=== PATIENT | male | born 1970 | race Caucasian/White ===

== ENCOUNTER 2022-02-19 09:08 | Inpatient (IN) | payer BC, SELFPAY ==
[2022-02-19] VITALS (7 sets, daily range): BP systolic 118–144; BP diastolic 60–79; PULSE 81–88; RESP 18; TEMP 36.2–37.3; O2SAT 96–100; BMI 24.9
--- NOTE | ~2022-02-19 | US_ITS ---
EXAMINATION: US venous doppler [facility] DATE: 02/19/2022 14:48 INDICATION: Lower limb pain. TECHNIQUE: Grayscale ultrasound images without and with compression and Doppler ultrasound images of the bilateral lower extremity veins were obtained. COMPARISON: None. FINDINGS: The visualized portions of right common femoral vein, profunda (deep) femoral vein, femoral vein, pop liteal vein, peroneal veins, posterior tibial veins, and greater saphenous vein outflow are patent. The visualized portions of left common femoral vein, profunda femoral vein, femoral vein, popliteal v ein, peroneal veins, posterior tibial veins, and greater saphenous vein outflow are patent. IMPRESSION: 1. No deep venous thrombosis. Reviewed, dictated and finalized at location A.
--- NOTE | ~2022-02-19 | US_ITS ---
EXAMINATION: US soft tissue LE DATE: 02/20/2022 12:58 INDICATION: Left posterior thigh lump. TECHNIQUE: Multiple grayscale and Doppler ultrasound images of the left thigh were obtained. COMPARISON: Left femur CT 02/19/2022 FINDINGS: In the left posterior thigh, there is a 3.8 x 1.6 cm mixed hypoechoic and isoechoic mass. T he surrounding fat is hyperechoic, consistent with inflammation. IMPRESSION: 1. 3.8 x 1.6 cm subcutaneous mass in the posterior left thigh, consistent with abscess. Reviewed, dictated and finalized at location A.
--- NOTE | ~2022-02-19 | US_ITS ---
EXAMINATION: US venous doppler [facility] DATE: 02/19/2022 14:47 INDICATION: Bilateral lower limb pain TECHNIQUE: Krause scale images without and with compression and Doppler images of the bilateral lower e xtremity veins were obtained. COMPARISON: None FINDINGS: The right common femoral vein, profunda femoral vein, femoral vein, popliteal vein, peroneal trunk, p osterior tibial veins, and greater saphenous vein are patent. The left common femoral vein, profunda femoral vein, femoral vein, popliteal vein, peroneal trunk, po sterior tibial veins, and greater saphenous vein are patent. IMPRESSION: 1. Patent bilateral lower extremity veins. No evidence of deep venous thrombosis. Reviewed, dictated and finalized at location B. IMPRESSION: 1. Patent bilateral lower extremity veins. No evidence of deep venous thrombosi s.
--- NOTE | ~2022-02-19 | CT_ITS ---
EXAMINATION: CTA chest PE protocol DATE: 02/19/2022 11:06 INDICATION: Left chest pain TECHNIQUE: Computed tomography angiography (CTA) of the chest was performed with 100 mL Omnipaque-350 intravenous contrast timed to evaluate the pulmonary arteries. Coronal maximum intensity projection 3D-reconstructions were created by the technologist. The dose-length product (DLP) was 415.27 mGy-cm. Automated exposure control and iterative reconstruction technique were employed. COMPARISON: None. FINDINGS: The pulmonary arteries are well-opacified. Respiratory motion artifact significantly limits evaluation for pulmonary emboli. There are possible pulmonary emboli in subsegmental branches of the left upper lobe and left lower lobe. There is mild atelectasis. No definite focal airspace opacity i s identified. No pleural effusion or pneumothorax. No pathologically enlarged thoracic lymph nodes ar e identified. The heart size is normal. There is moderate thoracic spondylosis. IMPRESSION: 1. Possible pulmonary emboli in segmental branches of the left upper lower lobes, sensitivity signifi cantly limited by motion artifact. Reviewed, dictated and finalized at location B. IMPRESSION: 1. Possible pulmonary emboli in segmental branches of the left upper lower lobe s, sensitivity significantly limited by motion artifact.
--- NOTE | ~2022-02-19 | CT_ITS ---
EXAMINATION: CT femur LT w con DATE: 02/19/2022 11:06 INDICATION: Left thigh cellulitis. TECHNIQUE: Computed tomography (CT) of the left thigh was performed with 100 mL Omnipaque 350 intrave nous contrast. Automated exposure control and iterative reconstruction technique were employed. The d ose-length product was 571.06 mGy-cm. COMPARISON: None FINDINGS: There is subcutaneous fat stranding in posterior and lateral left thigh. No drainable absce ss. Bone alignment is normal. No fracture. There is mild left hip osteoarthritis. No knee joint effus ion. IMPRESSION: 1. Subcutaneous fat stranding in posterior and lateral left thigh, consistent with cellulitis. No sunni inable abscess. Reviewed, dictated and finalized at location A. IMPRESSION: 1. Subcutaneous fat stranding in posterior and lateral left thigh, consistent w ith cellulitis. No drainable abscess.
--- NOTE | 2022-02-19 09:37 | ED.GENADULT ---
HPI - General Adult General Chief complaint: Wound/Laceration Stated complaint: left leg pain, chest pain Time Seen by Provider: 02/19/22 09:11 History of Present Illness HPI narrative: 51-year-old male presenting the emergency department for evaluation of a worsening cellulitis/abscess on his posterior left thigh. Patient also has complaint of left lower rib pain that is worsened with movement and inspiration. Patient states that he started having the redness on the posterior left thigh few days ago and was treated at a [facility] care with antibiotics and prednisone on Wednesday. Patient since that time the leg swelling has continued to worsen. Patient reports he was having some cough and congestion and has since had worsening left-sided chest pain with movement Related Data Home Medications Medication Instructions Recorded Confirmed alprazolam 1 mg tablet 1 mg PO DAILY 02/19/22 02/19/22 desvenlafaxine succinate 50 mg 50 mg PO DAILY 02/19/22 02/19/22 tablet,extended release 24 hr dihydroergotamine (Trudhesa) 0.725 mg intranasal PRN PRN 02/19/22 02/19/22 headaches melatonin 10 mg tablet 20 mg PO HS PRN Insomnia 02/19/22 02/19/22 rosuvastatin 5 mg tablet 5 mg PO DAILY 02/19/22 02/19/22 verapamil 240 mg tablet,extended 240 mg PO BID 02/19/22 02/19/22 release Allergies Allergy/AdvReac Type Severity Reaction Status Date / Time cefaclor [From Ceclor] AdvReac Diarrhea Verified 02/19/22 09:27 cefuroxime [From Ceftin] AdvReac Diarrhea Verified 02/19/22 09:28 Review of Systems Review of Systems: CONSTITUTIONAL: Denies fever, chills, or sweats. EYES: Denies visual changes, redness, or discharge. ENT: Denies rhinorrhea, congestion, sore throat, or otalgia. CARDIOVASCULAR: Left-sided chest pain RESPIRATORY: See HPI GASTROINTESTINAL: Denies abdominal pain, nausea, vomiting, or diarrhea. GENITOURINARY: Denies dysuria or hematuria. SKIN: See HPI MUSCULOSKELETAL: Denies back pain, joint pain, or myalgia. NEUROLOGIC: Denies headache, numbness, or weakness. [facility] Past Medical History Medical History (Updated 02/19/22 @ 13:46 by Pat Thompson NP) Anxiety Borderline hyperlipidemia Cluster headache Surgical History Surgical History (Updated 02/19/22 @ 13:30 by Pat Thompson NP) H/O hernia repair S/P orchiectomy Family History Family History Father Lung cancer Sibling Lung cancer Social History Social History (Updated 02/19/22 @ 15:09 by Pat Thompson NP) Social History: The patient continues to smoke 1 pack a cigarettes a day. He lives with his . He has 1 biologic child and has 1 step child. He works for [employer] He denies any alcohol or any other illicit drugs. Code status full code Smoking packs per day: 1 Smoking cigarettes per day: 20.0 Years smoked: 35 Smoking pack-years: 35.00 Smoking status: Current some day smoker Tobacco type: cigarettes Second hand tobacco smoke exposure: Yes Alcohol intake: never Substance use: current Substance use type: marijuana Spiritual care concerns: No Exam Narrative: APPEARANCE: Well appearing, no pain, no distress, well-nourished. HEAD: normocephalic, atraumatic. EYES: PERRLA/EOMI, conjunctivae clear. NOSE: Normal no drainage NECK: Supple. No adenopathy, no masses. RESPIRATORY: Airway patent, respirations nonlabored. Clear to auscultation bilaterally, no rales, rhonchi, wheezing. CARDIOVASCULAR: Regular rate and rhythm without murmurs rubs or gallops. Left-sided chest wall pain reproducible with palpation. No abdominal tenderness to palpation ABDOMINAL: Soft, nontender, nondistended, normal bowel sounds MUSCULOSKELETAL: Moves all extremities. Strength/ROM intact, No edema, No calf tenderness. NEURO: Alert. Cranial nerves II through XII intact. Grossly intact SKIN: Cellulitis on left posterior thigh Course Course Emergency C
--- NOTE | 2022-02-19 09:38 | ECG_ITS ---
Measurements Intervals [place] Rate: 89 P: 13 IA: 106 QRS: 35 QRSD: 98 T: 37 QT: 315 QTc: 384 Interpretive Statements SINUS OR ECTOPIC ATRIAL RHYTHM BORDERLINE R WAVE PROGRESSION, ANTERIOR LEADS BASELINE ARTIFACT- II, III, AVR, AVF, V1, V3-V4 BORDERLINE ECG NO PREVIOUS ECG AVAILABLE FOR COMPARISON Electronically Signed On 02-19-2022 10:23:11 CDT by Lloyd Vázquez D.O.
[2022-02-19 10:18] LABS: Basophils Absolute Auto 0.1 K/mm3 (0.0-0.1); Basophils Percent Auto 0.4 % (0.2-1.2); Eosinophils Absolute Auto 0.4 K/mm3 (0-0.3); Eosinophils Percent Auto 1.9 % (0-4.4); Hematocrit 42.9 % (42.0-52.0); Hemoglobin 13.9 g/dL (14.0-18.0); Immature Granulocyte Absolute 0.14 K/mm3 (0.00-0.031); Immature Granulocyte Percent A 0.6 % (0-0.5); Lymphocytes Absolute Auto 2.63 K/mm3 (0.9-3.2); Lymphocytes Percent Auto 11.9 % (18.3-44.2); Mean Corpuscular HGB Conc 32.4 g/dl (32-36); Mean Corpuscular Hemoglobin 29.3 pg (26-34); Mean Corpuscular Volume 90.5 fl (80-100); Mean Platelet Volume 10.1 fl (7.4-10.4); Monocytes Absolute Auto 1.2 K/mm3 (0.1-0.6); Monocytes Percent Auto 5.2 % (2.6-8.5); Neutrophils Absolute Auto 17.6 K/mm3 (1.3-6.7); Platelet Count Result 371 k/mm3 (150-375); Red Blood Count 4.74 M/mm3 (4.6-6.20); Red Cell Distribution Width 13.3 % (11.5-14.5)
[2022-02-19 10:27] LABS: Alanine Aminotransferase 18 U/L (6-50); Albumin Level 4.5 g/dL (3.5-5.1); Alkaline Phosphatase 67 U/L (38-126); Anion Gap 15 mmol/L (8-16); Aspartate Amino Transferase 24 U/L (17-59); Bilirubin,Total 0.4 mg/dL (0.2-1.3); Blood Urea Nitrogen 18 mg/dL (9-20); Calcium 8.7 mg/dL (8.4-10.2); Carbon Dioxide 26 mmol/L (22-30); Chloride 101 mmol/L (98-107); Estimated CRCL calculation 105 ml/min; Estimated Glomerular Filt Rate > 60; Glucose 82 mg/dL (65-110); Potassium 3.7 mmol/L (3.4-5.0); Sodium 142 mmol/L (137-145)
[2022-02-19 10:37] LABS: Troponin I < 0.012 ng/mL (0.000-0.034)
[2022-02-19 10:53] LABS: Lactic Acid Reflex 1.4 mmol/L (0.7-2.0)
[2022-02-19 12:34] LABS: SARS-CoV-2 RNA PCR Negative
[2022-02-19] MEDS: ENOXAPARIN 100 MG/ML SYRINGE 95 MG SUB-Q (12:48)
[2022-02-19 13:13] LABS: Troponin I < 0.012 ng/mL (0.000-0.034)
--- NOTE | 2022-02-19 13:26 | PM.IMHP ---
H&P: HPI History of Present Illness Date/Time: 02/19/22 13:26 Chief Complaint: Left chest pain left leg pain Narrative: This is a 51-year-old male patient came to the emergency room for evaluation of worsening cellulitis. The patient stated that he had been on Omnicef for his left thigh cellulitis. His behind the left leg. The patient also was complaining of left lower rib pain that was worsened with movement and inspiration. The patient has had no recent surgery but he has been in the process of moving out of his house. The patient had no injury to the left leg but thinks that he may have gotten a spider bite. The swelling and redness has gotten worse. Venous Dopplers pain bilateral lower extremity veins. No evidence of deep vein thrombosis. CT of the femur shows subcutaneous fat stranding and posterior lateral left thigh, consistent with cellulitis. No drainable abscess. The patient has an elevated area that feels that it could be I and D however the CT scan does not show any drainable abscess. Chest CTA was read as possible pulmonary emboli in segmental branches of the left lower lobes, sensitivity significantly limited by motion artifact. The patient was complaining of discomfort so I ordered a [employer] for him. The patient was started on subcu Lovenox, and vancomycin. The patient was initially admitted to inpatient status but changed to observation on the date of service of 02/19/2022. Review of Systems Review of Systems: See HPI All systems reviewed & are unremarkable except as noted in HPI and below Constitutional: Constitutional: Reports as per HPI and Reports no additional constitutional complaints Eyes: Eyes: Reports as per HPI and Reports no additional eye complaints ENT: Reports system reviewed and no additional complaints, except as documented and Reports Normal hearing present Cardiovascular: Cardiovascular: Reports no additional cardiovascular complaints Respiratory: Respiratory: Reports no additional respiratory complaints and Reports no additional respiratory complaints Gastrointestinal: Gastrointestinal: Reports as per HPI and Reports no additional gastrointestinal complaints Musculoskeletal: Musculoskeletal: Reports no additional musculoskeletal complaints Integumentary/Breasts: Skin/Breast: Reports system reviewed and no additional complaints, except as docu and Reports as per HPI Neurologic: Reports system reviewed and no additional complaints, except as documented, Reports as per HPI and Reports Normal hearing present Psychiatric: Psychiatric: Reports no additional psychiatric complaints and Reports as per HPI Endocrine: Endocrine: Reports no additional endocrine complaints Hematologic/Lymphatic: Hematologic/Lymphatic: Reports no additional hematologic/lymphatic complaints Allergic/Immunologic: Allergic/Immunologic: Reports no additional allergic/immunologic complaints [facility] Past Medical History Medical History (Updated 02/19/22 @ 13:46 by Pat Thompson NP) Anxiety Borderline hyperlipidemia Cluster headache Surgical History Surgical History (Updated 02/19/22 @ 13:30 by Pat Thompson NP) H/O hernia repair S/P orchiectomy Family History Family History (Updated 02/19/22 @ 13:32 by Pat Thompson NP) Father Lung cancer Sibling Lung cancer Social History Social History (Updated 02/19/22 @ 15:09 by Pat Thompson NP) Social History: The patient continues to smoke 1 pack a cigarettes a day. He lives with his . He has 1 biologic child and has 1 step child. He works for [employer] and [employer] He denies any alcohol or any other illicit drugs. Code status full code Smoking status: Current some day smoker Meds Home Medications and Allergies Home Medications Medication Instructions Recorded Confirmed Type alprazolam 1 mg tablet mg 02/19/22 02/19/22 History desvenlafaxine succinate 50 mg mg PO 02/19/22 History tablet,ext
[2022-02-19] MEDS: HYDROcodone/acetaminophen (*CRX) 5-325 MG TABLET 1 TAB PO (13:48)
--- NOTE | 2022-02-19 17:18 | PC.NURSE ---
This patient, Kory Smith, was admitted to Medical Room 348-01. Patient/family oriented to hospital policies and general routines including ID bracelet, bed and alarms, visiting hours, pain management, procedures, bathroom and other care routines, personal items, smoking policy, room service/diet, and visiting hours. Information on how to activate the Rapid Response Team has been discussed. Patient/Family are encouraged to report perceived risks to care and to ask questions if they do not understand what they are told or what they should do.
[2022-02-19 17:30] LABS: Troponin I < 0.012 ng/mL (0.000-0.034)
[2022-02-19] MEDS: HYDROcodone/acetaminophen (*CRX) 10-325 MG TABLET 1 TAB PO (17:33)
[2022-02-19] MEDS: VERAPAMIL HCL ER 240 MG TABLET.ER PO (21:12)
[2022-02-20] VITALS (9 sets, daily range): BP systolic 105–132; BP diastolic 55–70; PULSE 76–93; RESP 16–18; TEMP 36.6–37.2; O2SAT 95–99
--- NOTE | 2022-02-20 | ECHO_ITS ---
Patient Info Name: Kory Smith Age: 51 years : 1970 Gender: Male Ht: 76 in Wt: 205 lbs BSA: 2.24 m2 HR: 90 bpm BP: 122 / 62 mmHg Technical Quality: Poor Exam Date: 02/20/2022 8:54 AM Exam Location: [facility] Pulmonary Patient Status: Inpatient Admit Date: 02/19/2022 Staff Ordering Physician: Pat Thompson NP Development Coordinator: Paco Santamaria RDCS, RT Attending Provider: Alin Norwood MD Referring Physician: Jay PATE; Exam Type: CA echo doppler color flow Study Info Indications I26.99 - Other pulmonary embolism without acute cor pulmonale Complete two-dimensional, color flow and Doppler transthoracic echocardiogram is performed. Strain analysis performed. Summary 1. Complete two-dimensional, color flow and Doppler transthoracic echocardiogram is performed. 2. Technically suboptimal study due to poor sonographic images. 3. Left ventricular chamber dimension is normal. 4. Left ventricular systolic function is normal, estimated at 65-70%. 5. The left ventricular diastolic function is grade I diastolic dysfunction. 6. E/e' 5 is not elevated. 7. Global longitudinal strain is mildly abnormal at -16.3%. Left Ventricle E/e' 5 is not elevated. Global longitudinal strain is mildly abnormal at -16.3%. Technically suboptimal study due to poor sonographic images. Left ventricular chamber dimension is normal. Left ventricular systolic function is normal, estimated at 65-70%. The left ventricular diastolic function is grade I diastolic dysfunction. Right Ventricle Right ventricular systolic function is normal and with normal TAPSE 3.3 cm. Right ventricular chamber dimension is normal. Left Atria Left atrial chamber dimension is normal. Right Atria Right atrial chamber dimension is normal. Aortic Valve The aortic valve is trileaflet. There is no aortic valve stenosis. There is no aortic valve regurgitation. Pulmonic Valve The pulmonic valve is not well visualized. There is no pulmonic regurgitation. Mitral Valve There is no mitral valve stenosis. There is no mitral valve regurgitation. Tricuspid Valve The tricuspid valve leaflets are not well visualized. There is no tricuspid valve regurgitation. Pericardium/Pleural There is no pericardial effusion. Inferior Vena Cava Inferior vena cava is not well visualized. Aorta The aortic root size at the sinus of Valsalva is normal. Left Ventricular Outflow Tract Name Value Normal LVOT 2D LVOT Diameter 2.0 cm LVOT Doppler LVOT Peak Gradient 9 mmHg LVOT Mean Gradient 5 mmHg LVOT VTI 23 cm LVOT VTI/AV VTI Ratio 0.9 LVOT Stroke Volume 70 ml LVOT CO 6.4 l/min LVOT CI 2.9 l/min/m2 Mitral Valve Name Value Normal MV Doppler
[2022-02-20] MEDS: HYDROcodone/acetaminophen (*CRX) 10-325 MG TABLET 1 TAB PO ×2 (00:41→09:02)
[2022-02-20] MEDS: ENOXAPARIN 100 MG/ML SYRINGE 95 MG SUB-Q ×2 (00:42→12:09)
[2022-02-20 05:24] LABS: Basophils Absolute Auto 0.1 K/mm3 (0.0-0.1); Basophils Percent Auto 0.4 % (0.2-1.2); Eosinophils Absolute Auto 0.3 K/mm3 (0-0.3); Eosinophils Percent Auto 1.2 % (0-4.4); Hematocrit 38.6 % (42.0-52.0); Hemoglobin 12.7 g/dL (14.0-18.0); Immature Granulocyte Absolute 0.13 K/mm3 (0.00-0.031); Immature Granulocyte Percent A 0.6 % (0-0.5); Lymphocytes Absolute Auto 2.96 K/mm3 (0.9-3.2); Lymphocytes Percent Auto 14.2 % (18.3-44.2); Mean Corpuscular HGB Conc 32.9 g/dl (32-36); Mean Corpuscular Hemoglobin 29.2 pg (26-34); Mean Corpuscular Volume 88.7 fl (80-100); Mean Platelet Volume 9.5 fl (7.4-10.4); Monocytes Absolute Auto 1.7 K/mm3 (0.1-0.6); Monocytes Percent Auto 8.2 % (2.6-8.5); Neutrophils Absolute Auto 15.7 K/mm3 (1.3-6.7); Neutrophils Percent Auto 75.4 % (45.5-73.1); Platelet Count Result 307 k/mm3 (150-375); Red Blood Count 4.35 M/mm3 (4.6-6.20); Red Cell Distribution Width 13.2 % (11.5-14.5); White Blood Count 20.9 K/mm3 (4.5-10.0)
[2022-02-20 05:32] LABS: Lactic Acid Reflex 0.6 mmol/L (0.7-2.0)
[2022-02-20 05:48] LABS: Alanine Aminotransferase 18 U/L (6-50); Albumin Level 3.6 g/dL (3.5-5.1); Alkaline Phosphatase 64 U/L (38-126); Anion Gap 11 mmol/L (8-16); Aspartate Amino Transferase 17 U/L (17-59); Blood Urea Nitrogen 13 mg/dL (9-20); Calcium 8.4 mg/dL (8.4-10.2); Carbon Dioxide 27 mmol/L (22-30); Chloride 100 mmol/L (98-107); Estimated CRCL calculation 105 ml/min; Estimated Glomerular Filt Rate > 60; Glucose 102 mg/dL (65-110); Potassium 3.8 mmol/L (3.4-5.0); Sodium 138 mmol/L (137-145)
[2022-02-20 05:49] LABS: Lactate Dehydrogenase 111 U/L (120-246)
[2022-02-20 06:08] LABS: CRP 21.1 mg/dL (<1.0)
[2022-02-20 09:02] LABS: D Dimer 0.73 ug/mL (<0.48)
[2022-02-20] MEDS: VERAPAMIL HCL ER 240 MG TABLET.ER PO ×2 (09:02→21:33)
[2022-02-20] MEDS: DESVENLAFAXINE SUCCINATE 50 MG TAB.ER.24H PO (09:02)
--- NOTE | 2022-02-20 11:39 | PM.IMPN ---
Progress Note: A&P Assessment and Plan (1) Cellulitis: Code(s): L03.90 - Cellulitis, unspecified Status: Acute Assessment and Plan: -the patient has failed outpatient therapy with Omnicef. -the area appears to be getting larger. -CT scan from yesterday shows no drainable abscess. However this has worsened since yesterday based upon markings. Also appears to be draining more as well over the bite site. will get ultrasound - surgical consult -continue with vancomycin. will add Rocephin -blood cultures are pending. -no current drainage so we are not able to obtain any wound cultures. (2) Cluster headache: Code(s): G44.009 - Cluster headache syndrome, unspecified, not intractable Status: Acute Assessment and Plan: -continue with patient's her abdomen -continue with DHE -the patient also uses high-flow oxygen when he has cluster headache. (3) Pulmonary embolism: Code(s): I26.99 - Other pulmonary embolism without acute cor pulmonale Status: Acute Assessment and Plan: -subcu Lovenox for now. -may transition to Xarelto -echo ordered (4) Borderline hyperlipidemia: Code(s): E78.5 - Hyperlipidemia, unspecified Status: Acute Assessment and Plan: -continue with rosuvastatin (5) Anxiety: Code(s): F41.9 - Anxiety disorder, unspecified Status: Acute Assessment and Plan: -continue with alprazolam Subjective Date/time seen: 02/20/22 11:39 still having significant left-sided rib pain worse with movement cellulitis looks little worse from yesterdays markings Exam Const: General: cooperative, healthy appearing, comfortable, no acute distress, well developed, alert, awake and Physically active Nutritional Appearance: average body habitus and well nourished Orientation/consciousness: oriented to person, oriented to place, oriented to time and patient oriented x3 Limitations: no limitations HENMT: Head: normal to inspection, No palpable skull fracture present, normocephalic and atraumatic Ears: hearing grossly normal bilaterally and external ears normal General nose exam: Normal external nose present and Normal nares present Eyes: General: appearance normal, both eyes and all related structures Alignment and Position: alignment normal Periorbital: periorbital findings normal Eyelids: eyelids normal Sclera: sclerae normal Pupils: Equal, round and reactive pupils present EOM: EOMs intact bilaterally Neck: Neck: normal visual inspection and full ROM Chest: Chest palpation & inspection: normal inspection of the chest Resp: Effort & Inspection: normal respiratory effort Auscultation: clear to auscultation bilaterally Percussion: percussion normal Cardio: Palpation: normal PMI Rate: regular rate Rhythm: regular rhythm Heart sounds: S1 normal heart sound present and S2 normal heart sound present Peripheral pulses: Peripheral pulses 2+ throughout GI: Inspection: normal to inspection Auscultation: normal bowel sounds Rectal Exam: deferred : General: Yes no CVA tenderness Back/Spine/Pelvis: Back: no CVA tenderness Cervical Spine: cervical ROM normal Thoracic/Lumbar Spine: thoracic and lumbar spine normal to inspection Pelvis: no pain with anterior-posterior compression Skin: General skin exam: normal color Lesions: no lesions Rashes: no rashes Trauma: no lacerations or abrasions Wounds: no wounds Hair: normal Nails: normal Other: The patient has a large reddened area behind his left knee that is approximately 10 in long and about 7 just around. The area has been cervical. It looks like there is a pustule behind that left knee. There is a scab over that area. I was going to I&D it but the CT scan shows no abscess there. The patient stated that it has been draining on its own. Neuro: General: oriented to person, oriented to place, oriented to time and patient oriented x3 Cranial nerves: Yes Equal, round and reactive pupils
[2022-02-20] MEDS: MORPHINE SULFATE (*CRX) 4 MG/ML INJ IV PUSH ×2 (12:09→17:21)
--- NOTE | 2022-02-20 17:36 | PM.CNGS ---
Assessment and Plan Assessment and plan (1) Insect bite of thigh, left, infected: Code(s): S70.362A - Insect bite (nonvenomous), left thigh, initial encounter; L08.9 - Local infection of the skin and subcutaneous tissue, unspecified; W57.XXXA - Bitten or stung by nonvenomous insect and other nonvenomous arthropods, initial encounter Status: Acute Assessment and Plan: continue broad spectrum antibiotics (2) Abscess of left thigh: Code(s): L02.416 - Cutaneous abscess of left lower limb Status: Acute Assessment and Plan: Will proceed with I/D tomorrow morning. Patient has eaten and is anticoagulated at present. (3) Pulmonary embolism: Code(s): I26.99 - Other pulmonary embolism without acute cor pulmonale Status: Acute Assessment and Plan: left chest pain persists, stable (4) Chronic anticoagulation: Code(s): Z79.01 - long term acute care registered nurse (current) use of anticoagulants Status: Acute Assessment and Plan: hold MN dose lovenox, I/D in early a.m. History of Present Illness Consult details Consult date: 02/20/22 Reason for consult: other ( left leg abscess) Requesting physician: Uri Flores MD Narrative: patient is a 51-year-old man who was bitten on the back of his left thigh by an insect 1 week ago. A couple of days later this became swollen and painful. The redness and swelling worsened. He also developed left lateral chest pain. He came to the emergency room. He was noted to have severe cellulitis on the back of his left thigh. Exam and CT was negative for an abscess at that time. He had a CTA of the chest that showed pulmonary emboli in the left upper lobe. He is on a therapeutic dose of Lovenox. The redness swelling and pain of the left thigh has worsened. An ultrasound was done that suggested an abscess. Patient is seen in consultation. Patient was unaware but the left thigh has started to drain purulent fluid. He continues to have some left chest pain as well. Review of Systems Review of Systems: All systems reviewed & are unremarkable except as noted in HPI and below ( HPI and those items noted below) Constitutional: Constitutional: Denies chills, Denies fever(s) and Denies night sweats Cardiovascular: Cardiovascular: Reports as per HPI, Reports chest pain, Denies diaphoresis, Denies dyspnea and Denies paroxysmal nocturnal dyspnea Respiratory: Respiratory: Reports as per HPI, Denies chest congestion, Denies cough and Denies dyspnea Gastrointestinal: Gastrointestinal: Denies abdominal pain and Denies nausea Musculoskeletal: Musculoskeletal: Reports as per HPI Integumentary/Breasts: Skin/Breast: Reports as per HPI, Reports erythema, Denies rash, Reports skin swelling and Reports wounds PMFSH Past Medical History Medical History (Updated 02/20/22 @ 17:48 by Maciej Rea MD) Anxiety Borderline hyperlipidemia Cluster headache Surgical History Surgical History (Updated 02/19/22 @ 13:30 by Pat Thompson NP) H/O hernia repair S/P orchiectomy Family History Family History Father Lung cancer Sibling Lung cancer Social History Social History (Updated 02/19/22 @ 15:09 by Pat Thompson NP) Social History: The patient continues to smoke 1 pack a cigarettes a day. He lives with his . He has 1 biologic child and has 1 step child. He works for [employer] He denies any alcohol or any other illicit drugs. Code status full code Smoking packs per day: 1 Smoking cigarettes per day: 20.0 Years smoked: 35 Smoking pack-years: 35.00 Smoking status: Current some day smoker Tobacco type: cigarettes Second hand tobacco smoke exposure: Yes Alcohol intake: never Substance use: current Substance use type: marijuana Spiritual care concerns: No Meds Home Medications and Allergies Home Medications Medicatio
[2022-02-20] MEDS: oxyCODONE/ACETAMINOPHEN (*CRX) 10-325 MG TABLET 1 TAB PO (21:33)
[2022-02-20] MEDS: ROSUVASTATIN 5 MG TABLET PO (21:33)
[2022-02-20] MEDS: ALPRAZolam (*CRX) 0.5 MG TABLET 1 MG PO (21:34)
[2022-02-21] VITALS (16 sets, daily range): BP systolic 102–156; BP diastolic 58–86; PULSE 68–95; RESP 12–20; TEMP 35.8–36.7; O2SAT 92–99
--- NOTE | 2022-02-21 02:08 | PC.NURSE ---
vancomycin 0100 administration delayed due to awaiting trough. the is nurse called main lab x2 with no answer. will attempt call back in 15 minutes if no results posted.
[2022-02-21 02:15] LABS: Vancomycin Trough 7.3 ug/mL (10.0-20.0)
--- NOTE | 2022-02-21 02:19 | PC.NURSE ---
trough verified and reported to pharmacy
[2022-02-21] MEDS: MORPHINE SULFATE (*CRX) 4 MG/ML INJ IV PUSH ×2 (04:52→21:06)
--- NOTE | 2022-02-21 07:17 | PC.NURSE ---
pt down to OR via bed. All pertinent information with patient.
--- NOTE | 2022-02-21 07:27 | WPDANESEPPF ---
Anes - Initial Pre Proc Eval Procedure: Operation Date: 02/21/22 07:30 Proposed Procedures p I&D Debride Lower Extremity(Left) - Maciej Rea MD Date/Time: 02/21/22 07:27 Surgeon: Alin Norwood MD Pre Op Diagnosis: cellulitis,pe Patient Data Age: 51 Gender: M Height: 1.93 m Weight: 93 kg Last Vital Signs Temp 36.7 C 02/21/22 06:00 Pulse 80 02/21/22 06:00 Resp 20 02/21/22 06:00 BP 127/70 02/21/22 06:00 Pulse Ox 98 02/21/22 06:00 O2 Del Method Room Air 02/20/22 21:30 Allergies Allergy/AdvReac Type Severity Reaction Status Date / Time cefaclor [From Ceclor] AdvReac Diarrhea Verified 02/19/22 09:27 cefuroxime [From Ceftin] AdvReac Diarrhea Verified 02/19/22 09:28 Home Medications Medication Instructions Recorded Confirmed Type alprazolam 1 mg tablet 1 mg PO DAILY 02/19/22 02/19/22 History desvenlafaxine succinate 50 mg 50 mg PO DAILY 02/19/22 02/19/22 History tablet,extended release 24 hr dihydroergotamine (Trudhesa) 0.725 mg intranasal PRN PRN 02/19/22 02/19/22 History headaches melatonin 10 mg tablet 20 mg PO HS PRN Insomnia 02/19/22 02/19/22 History rosuvastatin 5 mg tablet 5 mg PO DAILY 02/19/22 02/19/22 History verapamil 240 mg tablet,extended 240 mg PO BID 02/19/22 02/19/22 History release Laboratory Tests 02/20/22 02/21/22 08:30 00:48 D-Dimer 0.73 ug/mL H ug/mL (<0.48) Vancomycin Trough 7.3 ug/mL L ug/mL (10.0-20.0) Patient hx anesthesia problems: none Family hx anesthesia problems: none Results Review: All pre-operative results and documents have been reviewed as part of the pre-operative evaluation. [facility] Past Medical History Medical History (Updated 02/21/22 @ 07:27 by Ze Bah MD) Anxiety Borderline hyperlipidemia Cluster headache Pulmonary embolism Surgical History Surgical History H/O hernia repair S/P orchiectomy Family History Family History Father Lung cancer Sibling Lung cancer Social History Social History Social History: The patient continues to smoke 1 pack a cigarettes a day. He lives with his . He has 1 biologic child and has 1 step child. He works for [employer] He denies any alcohol or any other illicit drugs. Code status full code Smoking packs per day: 1 Smoking cigarettes per day: 20.0 Years smoked: 35 Smoking pack-years: 35.00 Smoking status: Current some day smoker Tobacco type: cigarettes Second hand tobacco smoke exposure: Yes Alcohol intake: never Substance use: current Substance use type: marijuana Spiritual care concerns: No Anes - Eval Final PreProcedure Day of Procedure 02/21/22 07:27 Patient weight: normal Heart: regular rate and rhythm Lungs: clear to auscultation Airway: Mallampati scale class II Neurological: alert and oriented Last oral intake: >/= 8 hours ASA classification: III Emergent: yes Anesthetic plan: proceed Anesthesia type and monitoring: general ETT and standard monitoring Results Review: All pre-operative results and documents have been reviewed as part of the pre-operative evaluation. Informed Consent: The patient's anesthetic plan and its attendant risks and benefits were discussed with the patient/family/POA. Questions were solicited and answers provided to the satisfaction of the patient/family/POA.
[2022-02-21] MEDS: LACTATED RINGERS 1,000 ML 30 ML IV CONT ×2 (07:40→08:50)
[2022-02-21] MEDS: fentaNYL CITRATE INJ (*CRX) 100 MCG/2 ML VIAL 25 MCG IV PUSH ×3 (08:47→08:55)
--- NOTE | 2022-02-21 09:02 | W.PM.PROC2 ---
Procedure Note - Detailed Date of Procedure 02/21/22 Pre-op Diagnosis Left posterior thigh abscess Post-op Diagnosis Other (Extensive left posterior thigh abscess) Procedure Performed Incision and drainage complicated left posterior thigh abscess Surgeon Maciej Rea MD Lighting Engineer Myles Leone ADMINISTRATIVE FELLOW Anesthesia General Indications 1 patient suffered an insect bite 8 days ago on the left posterior thigh. This proceeded to swell and become reddened. He then started having some left chest pain. He came to the emergency room 2 days ago. He was noted to have cellulitis but no abscess in the left posterior thigh. He did have a left upper lobe pulmonary embolism. He has been on antibiotics in the hospital. He was also on therapeutic dose of Lovenox. A posterior thigh abscess developed yesterday. It started draining spontaneously yesterday. Patient had his Lovenox held and is down taken to surgery for incision and drainage. Findings This is a very large extensive abscess that went intramuscular and extended distally as well as proximally in the deep posterior thigh space. There was no evidence of a necrotizing soft tissue infection. Description of Procedure Patient was taken to surgery and induced into general anesthesia. He was then placed in right lateral decubitus position. The left posterior thigh was prepped and draped. There was a small opening that was draining purulent fluid already. Probing of this with a curved clamp showed an extensive pocket. I opened this a bit more and then obtain cultures for aerobes anaerobes and Gram stain. I then made an incision in this area such that a Yankauer suction could be placed into the abscess. I suctioned out the remaining purulent fluid and broke down loculations. It was at this point quite evident that this was extensive. It went between the flexor muscles of the posterior thigh and down towards the knee. It extended towards the buttocks both on the lateral and medial aspect. Probing with my finger showed the same findings as with the suction. I made a counter incision in the lateral and most distal aspect of the abscess cavity. I tunneled down to the cavity and was able to establish a communication deep to the subcutaneous in the abscess. I then probed further and found a proximal extension that extended laterally. Another counter incision was made here. Dissection to the abscess cavity was performed. Communication between this counter incision and the other 2 were then established with curved clamps. I then thoroughly irrigated the abscess pocket with warm saline. No further purulence was noted and there were no palpable loculations. A half-inch Mercy drain was then used as a seton. I passed the drain from the most proximal incision to the central incision. The drain was sutured to itself with 0 silk suture so that was a secure ring communicating the 2 counter incisions. I then passed a half-inch Mercy drain from the most distal counter incision to the central incision. This was likewise sutured to itself making a secure ring. The drains were kept the wounds open such that drainage would be facilitated without extensive drainage incisions. All looked good. The wound was dressed with multiple fluffs ABDs Kerlix roll and a 6 in Pavan wraps. The patient was awakened and taken to recovery in good condition. Sponge and needle counts were correct x2. Estimated Blood Loss -10 Urine Output 500 Drains Yes ([place] drains placed as setons (2)) Packing No Pathology Yes (Only for cultures) Complications No immediate complications Condition Stable Disposition PACU [facility] Billing Surgery - Charge Forward: Surgery Billing (Incision and drainage complex left posterior thigh abscess)
[2022-02-21] MEDS: VERAPAMIL HCL ER 240 MG TABLET.ER PO ×2 (10:18→21:05)
[2022-02-21] MEDS: DESVENLAFAXINE SUCCINATE 50 MG TAB.ER.24H PO (10:18)
[2022-02-21] MEDS: ENOXAPARIN 40 MG/0.4 ML SYRINGE SUB-Q (10:19)
[2022-02-21] MEDS: LACTATED RINGERS 1,000 ML 80 ML IV CONT (10:20)
[2022-02-21] MEDS: FAMOTIDINE 20 MG TABLET PO ×2 (10:25→21:05)
--- NOTE | 2022-02-21 12:58 | PM.IMPN ---
Progress Note: A&P Assessment and Plan (1) Cellulitis: Code(s): L03.90 - Cellulitis, unspecified Status: Acute Assessment and Plan: -the patient has failed outpatient therapy with Omnicef. -the area appears to be getting larger. -CT scan from yesterday shows no drainable abscess. However this has worsened since yesterday based upon markings. Also appears to be draining more as well over the bite site. will get ultrasound - surgical consult -continue with vancomycin. will add Rocephin -blood cultures are pending. -no current drainage so we are not able to obtain any wound cultures. 02/21/2022 interval history: patient with left thigh abscess was seen by surgery service and was taken to OR, had I and D of complicated left posterior thigh abscess, blood culture no growth so far, wound culture was collected today patient is being treated Zosyn and vancomycin, denies any pain or sortness of breath, patient family is present in the room. there is also concerned patient has PE but no DVT, patient was started on therapeutic Lovenox but was placed on hold for the surgery and surgeon has resumed low dose Lovenox 40mg SC daily, will CPM and further recommendation to follow. (2) Cluster headache: Code(s): G44.009 - Cluster headache syndrome, unspecified, not intractable Status: Acute Assessment and Plan: -continue with patient's her abdomen -continue with DHE -the patient also uses high-flow oxygen when he has cluster headache. (3) Pulmonary embolism: Code(s): I26.99 - Other pulmonary embolism without acute cor pulmonale Status: Inactive Assessment and Plan: -subcu Lovenox for now. -may transition to Xarelto -echo ordered (4) Borderline hyperlipidemia: Code(s): E78.5 - Hyperlipidemia, unspecified Status: Acute Assessment and Plan: -continue with rosuvastatin (5) Anxiety: Code(s): F41.9 - Anxiety disorder, unspecified Status: Acute Assessment and Plan: -continue with alprazolam Subjective Date/time seen: 02/21/22 12:58 02/21/2022 interval history: patient with left thigh abscess was seen by surgery service and was taken to OR, had I and D of complicated left posterior thigh abscess, blood culture no growth so far, wound culture was collected today patient is being treated Zosyn and vancomycin, denies any pain or sortness of breath, patient family is present in the room. there is also concerned patient has PE but no DVT, patient was started on therapeutic Lovenox but was placed on hold for the surgery and surgeon has resumed low dose Lovenox 40mg SC daily, will CPM and further recommendation to follow. Review of Systems Review of Systems: All systems reviewed & are unremarkable except as noted in HPI and below ( HPI and those items noted below) Exam Narrative: Patient is comfortable, NAD HEENT: eyes are clear and none icteric LUNGS: normal respiratory effort ABD: BS+, Soft and nontender Lower extremities: no edema MS: left thigh surgical dressing SKIN: nonjaundiced Neuro: grossly intact. Objective Data Vital Signs Vital Signs: Vital Signs - 24 hr 02/20/22 14:00 02/20/22 16:00 02/20/22 21:01 Temperature 99.0 F 98.4 F Pulse Rate 80 80 86 Respiratory Rate 16 16 Blood Pressure 105/55 L 132/70 Pulse Oximetry 96 99 Oxygen Delivery Oxygen Flow Rate 02/20/22 21:30 02/20/22 20:00 02/21/22 00:00 Temperature Pulse Rate 93 80 Respiratory Rate Blood Pressure Pulse Oximetry Oxygen Delivery Room Air Oxygen Flow Rate 02/21/22 04:22 02/21/22 06:00 02/21/22 08:30 Temperature 98.0 F 97.9 F Pulse Rate 71 80 92 Respiratory Rate 20 18 Blood Pressure 127/70 156/85 H Pulse Oximetry 98 95 Oxygen Delivery Simple Face Mask Oxygen Flow Rate 8 02/21/22 08:45 02/21/22 09:00 02/21/22 09:15 Temperature Pulse Rate 83 83 80 Respiratory Rate 16 20 12 Blood Pressure 124/86 13
[2022-02-21] MEDS: MORPHINE SULFATE (*CRX) 2 MG/ML INJ IV PUSH ×2 (13:22→16:59)
[2022-02-21] MEDS: ALPRAZolam (*CRX) 0.5 MG TABLET 1 MG PO (21:04)
[2022-02-21] MEDS: ROSUVASTATIN 5 MG TABLET PO (21:05)
[2022-02-21] MEDS: IBUPROFEN IV 800 MG/200 ML 800 MG/200 ML BAG 400 MG IVPB (21:22)
[2022-02-22] VITALS (9 sets, daily range): BP systolic 111–140; BP diastolic 72–79; PULSE 59–80; RESP 16–18; TEMP 36.4–36.6; O2SAT 96–99
[2022-02-22 08:30] LABS: Basophils Percent Auto 0.3 % (0.2-1.2); Eosinophils Absolute Auto 0.2 K/mm3 (0-0.3); Eosinophils Percent Auto 1.6 % (0-4.4); Hematocrit 34.4 % (42.0-52.0); Hemoglobin 11.2 g/dL (14.0-18.0); Immature Granulocyte Absolute 0.07 K/mm3 (0.00-0.031); Immature Granulocyte Percent A 0.6 % (0-0.5); Lymphocytes Absolute Auto 1.85 K/mm3 (0.9-3.2); Lymphocytes Percent Auto 14.7 % (18.3-44.2); Mean Corpuscular HGB Conc 32.6 g/dl (32-36); Mean Corpuscular Volume 89.1 fl (80-100); Mean Platelet Volume 9.5 fl (7.4-10.4); Monocytes Percent Auto 8.1 % (2.6-8.5); Neutrophils Absolute Auto 9.4 K/mm3 (1.3-6.7); Neutrophils Percent Auto 74.7 % (45.5-73.1); Platelet Count Result 311 k/mm3 (150-375); Red Blood Count 3.86 M/mm3 (4.6-6.20); White Blood Count 12.6 K/mm3 (4.5-10.0)
[2022-02-22 08:38] LABS: Anion Gap 7 mmol/L (8-16); Blood Urea Nitrogen 10 mg/dL (9-20); Calcium 8.3 mg/dL (8.4-10.2); Carbon Dioxide 26 mmol/L (22-30); Chloride 102 mmol/L (98-107); Estimated CRCL calculation 132 ml/min; Estimated Glomerular Filt Rate > 60; Glucose 145 mg/dL (65-110); Potassium 3.6 mmol/L (3.4-5.0); Sodium 135 mmol/L (137-145)
--- NOTE | 2022-02-22 08:45 | WPDANESPN ---
Anes - Prog Note Post-Op Date/Time: 02/22/22 08:45 Cardiovascular status: normal Respiratory status: normal Airway patency: baseline Mental status: baseline Post-Op hydration status: normal Vital Signs: Last Vital Signs Temp 36.4 C L 02/22/22 08:00 Pulse 62 02/22/22 08:00 Resp 16 02/22/22 08:00 BP 111/77 02/22/22 08:00 Pulse Ox 96 02/22/22 08:00 O2 Del Method Room Air 02/21/22 21:00 O2 Flow Rate 8 02/21/22 08:30 Pain Score (VAS): 07/24 I/O: Intake & Output 02/21/22 02/22/22 02/22/22 23:59 07:59 15:59 Intake Total 990 500 Output Total 500 1400 Balance 490 -900 Laboratory Tests 02/22/22 08:11 02/22/22 08:11 02/22/22 02/22/22 08:11 08:11 WBC 12.6 H RBC 3.86 L Hgb 11.2 L Hct 34.4 L MCV 89.1 MCH 29.0 MCHC 32.6 RDW 13.0 Plt Count 311 MPV 9.5 Immature Gran % (Auto) 0.6 H Neut % (Auto) 74.7 H Lymph % (Auto) 14.7 L [place] % (Auto) 8.1 Eos % (Auto) 1.6 Baso % (Auto) 0.3 Lymph # (Auto) 1.85 [place] # (Auto) 1.0 H Eos # (Auto) 0.2 Baso # (Auto) 0.0 Abs Immat Gran (auto) 0.07 H Absolute Neuts (auto) 9.4 H Absolute Nucleated RBC 0.0 Nucleated RBC % 0.0 Sodium 135 L Potassium 3.6 Chloride 102 Carbon Dioxide 26 Anion Gap 7 L BUN 10 Creatinine 0.70 Estim Creat Clear Calc 132 Estimated GFR > 60 Glucose 145 H Calcium 8.3 L Post-procedural complaints: none Patient Feedback: Patient satisfied with anesthetic care.
[2022-02-22] MEDS: ENOXAPARIN 40 MG/0.4 ML SYRINGE SUB-Q (08:53)
[2022-02-22] MEDS: HYDROcodone/acetaminophen (*CRX) 10-325 MG TABLET 1 TAB PO ×2 (08:54→15:42)
[2022-02-22] MEDS: DESVENLAFAXINE SUCCINATE 50 MG TAB.ER.24H PO (08:55)
[2022-02-22] MEDS: VERAPAMIL HCL ER 240 MG TABLET.ER PO ×2 (08:56→20:34)
[2022-02-22] MEDS: FAMOTIDINE 20 MG TABLET PO ×2 (09:02→20:33)
[2022-02-22 09:27] LABS: Anion Gap 10 mmol/L (8-16); Blood Urea Nitrogen 10 mg/dL (9-20); Calcium 8.2 mg/dL (8.4-10.2); Carbon Dioxide 29 mmol/L (22-30); Chloride 100 mmol/L (98-107); Estimated CRCL calculation 132 ml/min; Estimated Glomerular Filt Rate > 60; Glucose 117 mg/dL (65-110); Potassium 3.7 mmol/L (3.4-5.0); Sodium 139 mmol/L (137-145)
[2022-02-22 09:32] LABS: Hematocrit 35.8 % (42.0-52.0); Hemoglobin 11.8 g/dL (14.0-18.0); Mean Corpuscular Hemoglobin 29.2 pg (26-34); Mean Corpuscular Volume 88.6 fl (80-100); Mean Platelet Volume 9.6 fl (7.4-10.4); Platelet Count Result 328 k/mm3 (150-375); Red Blood Count 4.04 M/mm3 (4.6-6.20)
--- NOTE | 2022-02-22 11:47 | PM.IMPN ---
Progress Note: A&P Assessment and Plan (1) Cellulitis: Code(s): L03.90 - Cellulitis, unspecified Status: Acute Assessment and Plan: status post I and D continue IV antibiotics (2) Cluster headache: Code(s): G44.009 - Cluster headache syndrome, unspecified, not intractable Status: Acute Assessment and Plan: -continue with patient's her abdomen -continue with DHE -the patient also uses high-flow oxygen when he has cluster headache. (3) Pulmonary embolism: Code(s): I26.99 - Other pulmonary embolism without acute cor pulmonale Status: Inactive Assessment and Plan: -subcu Lovenox for now. -may transition to Xarelto -echo ordered (4) Borderline hyperlipidemia: Code(s): E78.5 - Hyperlipidemia, unspecified Status: Acute Assessment and Plan: -continue with rosuvastatin (5) Anxiety: Code(s): F41.9 - Anxiety disorder, unspecified Status: Acute Assessment and Plan: -continue with alprazolam Subjective Date/time seen: 02/22/22 11:47 Pain better controlled Exam Narrative: Patient is comfortable, NAD HEENT: eyes are clear and none icteric LUNGS: normal respiratory effort ABD: BS+, Soft and nontender Lower extremities: no edema MS: left thigh surgical dressing SKIN: nonjaundiced Neuro: grossly intact. Objective Data Vital Signs Vital Signs: Vital Signs - 24 hr 02/21/22 15:15 02/21/22 19:15 02/21/22 12:00 Temperature 96.6 F L 97.6 F Pulse Rate 72 68 68 Respiratory Rate 16 18 Blood Pressure 111/63 120/75 Pulse Oximetry 96 98 Oxygen Delivery 02/21/22 16:00 02/21/22 21:00 02/21/22 23:15 Temperature 97.8 F Pulse Rate 95 69 Respiratory Rate 18 Blood Pressure 126/68 Pulse Oximetry 99 Oxygen Delivery Room Air 02/22/22 03:15 02/21/22 20:00 02/22/22 00:00 Temperature 97.8 F Pulse Rate 77 71 80 Respiratory Rate 18 Blood Pressure 115/79 Pulse Oximetry 96 Oxygen Delivery 02/22/22 04:00 02/22/22 08:00 Temperature 97.5 F L Pulse Rate 74 62 Respiratory Rate 16 Blood Pressure 111/77 Pulse Oximetry 96 Oxygen Delivery Intake/Output Intake/Output: Intake & Output 02/19/22 02/20/22 02/21/22 02/22/22 23:59 23:59 23:59 23:59 Intake Total 420 2019 3179 980 Output Total 600 1924 190 1400 Balance -615 60 1846 -420 Meds/Results Medications: Active Medications Generic Name Dose Route Start Last Admin Trade Name Freq PRN Reason Stop Dose Admin Acetaminophen 500 mg 02/21/22 09:30 Acetaminophen 500 Mg Tablet PO Q6H PRN Mild Pain (1-3) or Fever Hydrocodone Bitart/Acetaminophen 1 tab 02/21/22 09:30 Hydrocodone/Acetaminophen (*Crx) 5-325 Mg Tablet PO Q4H PRN Pain Rated 4-6 Hydrocodone Bitart/Acetaminophen 1 tab 02/21/22 09:30 02/22/22 08:54 Hydrocodone/Acetaminophen (*Crx) 10-325 Mg Tablet PO 1 tab Q6H PRN Administration Pain Rated 7-10 Alprazolam 1 mg 02/20/22 21:00 02/21/22 21:04 Alprazolam (*Crx) 0.5 Mg Tablet PO 1 mg HS FLAVIA Administration Desvenlafaxine Succinate 50 mg 02/20/22 09:00 02/22/22 08:55 Desvenlafaxine Succinate 50 Mg Tab.Er.24h PO 50 mg DAILY FLAVIA Administration Enoxaparin Sodium 95 mg 02/20/22 00:00 02/20/22 12:09 Enoxaparin 100 Mg/Ml Syringe SUB-Q 95 mg Q12H FLAVIA Administration Enoxaparin Sodium 40 mg 02/21/22 09:30 02/22/22 08:53 Enoxaparin 40 Mg/0.4 Ml Syringe SUB-Q 40 mg DAILY FLAVIA Administration Famotidine 20 mg 02/21/22 09:30 02/22/22 09:02 Famotidine 20 Mg Tablet PO 20 mg Q12HR FLAVIA Administration Vancomycin HCl 1,750 mg in 500 mls @ 250 mls/hr 02/21/22 03:00 02/22/22 03:35 Vancomycin 1,750 Mg/D5w 500 Ml IVPB 250 mls/hr Q12H FLAVIA Administration Ibuprofen 800 mg in 200 mls @ 400 mls/hr 02/21/22 09:30 02/21/22 21:48 Caldolor 800 Mg/200 Ml IVPB Infused Q6H PRN Infusion Pain Rated 1-3 Piperacillin/Tazoba
[2022-02-22] MEDS: MORPHINE SULFATE (*CRX) 2 MG/ML INJ IV PUSH (13:29)
[2022-02-22 14:21] LABS: Vancomycin Trough 12.3 ug/mL (10.0-20.0)
--- NOTE | 2022-02-22 14:56 | PM.PNGS ---
Progress Note: A&P Assessment and Plan (1) Abscess of left thigh: Code(s): L02.416 - Cutaneous abscess of left lower limb Status: Acute Assessment and Plan: deep abscess but appears to be well drained and much improved from 24 hours ago. Dressing replaced. Explained to patient the drains and condition of the wounds. Improved. (2) Insect bite of thigh, left, infected: Code(s): S70.362A - Insect bite (nonvenomous), left thigh, initial encounter; L08.9 - Local infection of the skin and subcutaneous tissue, unspecified; W57.XXXA - Bitten or stung by nonvenomous insect and other nonvenomous arthropods, initial encounter Status: Acute Assessment and Plan: Likely is the cause of the abscess (3) Chronic anticoagulation: Code(s): Z79.01 - long term care pharmacist (current) use of anticoagulants Status: Acute Assessment and Plan: continue to hold therapeutic dose of anticoagulation. Probably can start tomorrow. Subjective Subjective Date/Time Seen: 02/22/22 14:56 Post Op day: 1 Patient reports: still having pain and afebrile Exam Const: General: comfortable and awake Extrem: Left lower extremity: hip/thigh ( Much improved, erythema gone, swelling decreased, no bleeding or purulent) Objective Data Vital Signs Vital Signs: Vital Signs - 24 hr 02/21/22 15:15 02/21/22 19:15 02/21/22 16:00 Temperature 35.9 C L 36.4 C Pulse Rate 72 68 95 Respiratory Rate 16 18 Blood Pressure 111/63 120/75 Pulse Oximetry 96 98 Oxygen Delivery 02/21/22 21:00 02/21/22 23:15 02/22/22 03:15 Temperature 36.6 C 36.6 C Pulse Rate 69 77 Respiratory Rate 18 18 Blood Pressure 126/68 115/79 Pulse Oximetry 99 96 Oxygen Delivery Room Air 02/21/22 20:00 02/22/22 00:00 02/22/22 04:00 Temperature Pulse Rate 71 80 74 Respiratory Rate Blood Pressure Pulse Oximetry Oxygen Delivery 02/22/22 08:00 02/22/22 08:30 02/22/22 08:00 Temperature 36.4 C L Pulse Rate 62 59 L Respiratory Rate 16 Blood Pressure 111/77 Pulse Oximetry 96 Oxygen Delivery Room Air 02/22/22 12:00 02/22/22 11:50 Temperature 36.6 C Pulse Rate 76 64 Respiratory Rate 16 Blood Pressure 119/72 Pulse Oximetry 99 Oxygen Delivery Intake/Output Intake/Output: Intake & Output 02/19/22 02/20/22 02/21/22 02/22/22 23:59 23:59 23:59 23:59 Intake Total 420 2019 318 1250 Output Total 600 1925 1900 1400 Balance -152 39 9656 -150 Meds/Results Medications: Active Medications Generic Name Dose Route Start Last Admin Trade Name Freq PRN Reason Stop Dose Admin Acetaminophen 500 mg 02/21/22 09:30 Acetaminophen 500 Mg Tablet PO Q6H PRN Mild Pain (1-3) or Fever Hydrocodone Bitart/Acetaminophen 1 tab 02/21/22 09:30 Hydrocodone/Acetaminophen (*Crx) 5-325 Mg Tablet PO Q4H PRN Pain Rated 4-6 Hydrocodone Bitart/Acetaminophen 1 tab 02/21/22 09:30 02/22/22 08:54 Hydrocodone/Acetaminophen (*Crx) 10-325 Mg Tablet PO 1 tab Q6H PRN Administration Pain Rated 7-10 Alprazolam 1 mg 02/20/22 21:00 02/21/22 21:04 Alprazolam (*Crx) 0.5 Mg Tablet PO 1 mg HS FLAVIA Administration Desvenlafaxine Succinate 50 mg 02/20/22 09:00 02/22/22 08:55 Desvenlafaxine Succinate 50 Mg Tab.Er.24h PO 50 mg DAILY FLAVIA Administration Enoxaparin Sodium 95 mg 02/20/22 00:00 02/20/22 12:09 Enoxaparin 100 Mg/Ml Syringe SUB-Q 95 mg Q12H FLAVIA Administration Enoxaparin Sodium 40 mg 02/21/22 09:30 02/22/22 08:53 Enoxaparin 40 Mg/0.4 Ml Syringe SUB-Q 40 mg DAILY FLAVIA Administration Famotidine 20 mg 02/21/22 09:30 02/22/22 09:02 Famotidine 20 Mg Tablet PO 20 mg Q12HR FLAVIA Administration Vancomycin HCl 1,750 mg in 500 mls @ 250 mls/hr 02/21/22 03:00 02/22/22 03:35 Vancomycin 1,750 Mg/D5w 500 Ml IVPB 250 mls/hr Q12H FLAVIA Administration Ibuprofen 800 mg in 200 mls @ 400 mls/hr 02/21/22 09:30 02/21/22 21:48
[2022-02-22] MEDS: ALPRAZolam (*CRX) 0.5 MG TABLET 1 MG PO (20:33)
[2022-02-22] MEDS: ROSUVASTATIN 5 MG TABLET PO (20:34)
[2022-02-23] VITALS (10 sets, daily range): BP systolic 118–134; BP diastolic 69–76; PULSE 58–73; RESP 16–18; TEMP 36.4–36.9; O2SAT 9–99
[2022-02-23] MEDS: HYDROcodone/acetaminophen (*CRX) 10-325 MG TABLET 1 TAB PO ×4 (00:06→19:30)
[2022-02-23 05:26] LABS: Basophils Absolute Auto 0.1 K/mm3 (0.0-0.1); Basophils Percent Auto 0.6 % (0.2-1.2); Eosinophils Absolute Auto 0.4 K/mm3 (0-0.3); Eosinophils Percent Auto 4.4 % (0-4.4); Hematocrit 36.8 % (42.0-52.0); Immature Granulocyte Absolute 0.05 K/mm3 (0.00-0.031); Immature Granulocyte Percent A 0.5 % (0-0.5); Lymphocytes Percent Auto 35.4 % (18.3-44.2); Mean Corpuscular HGB Conc 32.6 g/dl (32-36); Mean Corpuscular Hemoglobin 29.3 pg (26-34); Mean Platelet Volume 9.5 fl (7.4-10.4); Monocytes Absolute Auto 0.8 K/mm3 (0.1-0.6); Monocytes Percent Auto 8.6 % (2.6-8.5); Neutrophils Absolute Auto 4.9 K/mm3 (1.3-6.7); Neutrophils Percent Auto 50.5 % (45.5-73.1); Platelet Count Result 332 k/mm3 (150-375); Red Blood Count 4.09 M/mm3 (4.6-6.20); White Blood Count 9.6 K/mm3 (4.5-10.0)
[2022-02-23 05:39] LABS: Anion Gap 6 mmol/L (8-16); Blood Urea Nitrogen 8 mg/dL (9-20); Calcium 8.8 mg/dL (8.4-10.2); Carbon Dioxide 31 mmol/L (22-30); Chloride 101 mmol/L (98-107); Estimated CRCL calculation 117 ml/min; Estimated Glomerular Filt Rate > 60; Glucose 112 mg/dL (65-110); Potassium 3.8 mmol/L (3.4-5.0); Sodium 138 mmol/L (137-145)
[2022-02-23] MEDS: ENOXAPARIN 40 MG/0.4 ML SYRINGE SUB-Q (09:57)
[2022-02-23] MEDS: DESVENLAFAXINE SUCCINATE 50 MG TAB.ER.24H PO (09:57)
[2022-02-23] MEDS: VERAPAMIL HCL ER 240 MG TABLET.ER PO ×2 (09:58→20:28)
[2022-02-23] MEDS: FAMOTIDINE 20 MG TABLET PO ×2 (10:01→20:28)
--- NOTE | 2022-02-23 10:56 | PM.IMPN ---
Progress Note: A&P Assessment and Plan (1) Cellulitis: Code(s): L03.90 - Cellulitis, unspecified Status: Acute Assessment and Plan: status post I and D continue IV antibiotics (2) Cluster headache: Code(s): G44.009 - Cluster headache syndrome, unspecified, not intractable Status: Acute Assessment and Plan: -continue with patient's her abdomen -continue with DHE -the patient also uses high-flow oxygen when he has cluster headache. (3) Pulmonary embolism: Code(s): I26.99 - Other pulmonary embolism without acute cor pulmonale Status: Inactive Assessment and Plan: -subcu Lovenox for now. -may transition to Xarelto Prior to discharge (4) Borderline hyperlipidemia: Code(s): E78.5 - Hyperlipidemia, unspecified Status: Acute Assessment and Plan: -continue with rosuvastatin (5) Anxiety: Code(s): F41.9 - Anxiety disorder, unspecified Status: Acute Assessment and Plan: -continue with alprazolam Subjective Date/time seen: 02/23/22 10:56 Still having some pain but overall feeling slightly better. Exam Narrative: Patient is comfortable, NAD HEENT: eyes are clear and none icteric LUNGS: normal respiratory effort ABD: BS+, Soft and nontender Lower extremities: no edema MS: left thigh surgical dressing SKIN: nonjaundiced Neuro: grossly intact. Objective Data Vital Signs Vital Signs: Vital Signs - 24 hr 02/22/22 12:00 02/22/22 11:50 02/22/22 16:00 Temperature 97.9 F Pulse Rate 76 64 66 Respiratory Rate 16 Blood Pressure 119/72 Pulse Oximetry 99 Oxygen Delivery 02/22/22 19:54 02/22/22 20:00 02/22/22 20:00 Temperature 97.8 F Pulse Rate 68 68 Respiratory Rate 18 Blood Pressure 140/72 Pulse Oximetry 99 Oxygen Delivery Room Air 02/23/22 00:00 02/23/22 04:06 02/23/22 05:47 Temperature 97.6 F Pulse Rate 58 L 59 L 61 Respiratory Rate 18 Blood Pressure 118/74 Pulse Oximetry 98 Oxygen Delivery Intake/Output Intake/Output: Intake & Output 02/20/22 02/21/22 02/22/22 02/23/22 23:59 23:59 23:59 23:59 Intake Total 2019 5535 7324 4345 Output Total 1924 1900 2100 1200 Balance 95 1280 1040 -120 Meds/Results Medications: Active Medications Generic Name Dose Route Start Last Admin Trade Name Freq PRN Reason Stop Dose Admin Acetaminophen 500 mg 02/21/22 09:30 Acetaminophen 500 Mg Tablet PO Q6H PRN Mild Pain (1-3) or Fever Hydrocodone Bitart/Acetaminophen 1 tab 02/21/22 09:30 Hydrocodone/Acetaminophen (*Crx) 5-325 Mg Tablet PO Q4H PRN Pain Rated 4-6 Hydrocodone Bitart/Acetaminophen 1 tab 02/21/22 09:30 02/23/22 06:15 Hydrocodone/Acetaminophen (*Crx) 10-325 Mg Tablet PO 1 tab Q6H PRN Administration Pain Rated 7-10 Alprazolam 1 mg 02/20/22 21:00 02/22/22 20:33 Alprazolam (*Crx) 0.5 Mg Tablet PO 1 mg HS FLAVIA Administration Desvenlafaxine Succinate 50 mg 02/20/22 09:00 02/23/22 09:57 Desvenlafaxine Succinate 50 Mg Tab.Er.24h PO 50 mg DAILY FLAVIA Administration Enoxaparin Sodium 95 mg 02/20/22 00:00 02/20/22 12:09 Enoxaparin 100 Mg/Ml Syringe SUB-Q 95 mg Q12H FLAVIA Administration Enoxaparin Sodium 40 mg 02/21/22 09:30 02/23/22 09:57 Enoxaparin 40 Mg/0.4 Ml Syringe SUB-Q 40 mg DAILY FLAVIA Administration Famotidine 20 mg 02/21/22 09:30 02/23/22 10:01 Famotidine 20 Mg Tablet PO 20 mg Q12HR FLAVIA Administration Vancomycin HCl 1,750 mg in 500 mls @ 250 mls/hr 02/21/22 03:00 02/23/22 05:45 Vancomycin 1,750 Mg/D5w 500 Ml IVPB Infused Q12H FLAVIA Infusion Ibuprofen 800 mg in 200 mls @ 400 mls/hr 02/21/22 09:30 02/21/22 21:48 Caldolor 800 Mg/200 Ml IVPB Infused Q6H PRN Infusion Pain Rated 1-3 Piperacillin/Tazobactam/Dextrose 3.375 gm in 50 mls @ 100 mls/hr 02/21/22 12:00 02/23/22 07:30 Zosyn 3.375 Gm/D5w 50ml Pm IVPB Infused Q6HR FLAVIA
--- NOTE | 2022-02-23 13:09 | PM.PNGS ---
Progress Note: A&P Assessment and Plan (1) Abscess of left thigh: Code(s): L02.416 - Cutaneous abscess of left lower limb Status: Acute Assessment and Plan: Adequately drained and continues to improve. Continue with gauze dressing changes daily. Will remove dressing and re-evaluate again tomorrow. Preliminary cultures show growth of staphylococcus aureus. Continue IV antibiotics. 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 Plan I have discussed the patient's case and plan of care with Dr. Rea. Subjective Subjective Date/Time Seen: 02/23/22 12:49 Post Op day: 2 (I&D complicated left posterior thigh abscess) Patient reports: no new complaints, feels better and afebrile Interval history: Patient presented with large left posterior thigh abscess and underwent I&D 2 days ago. He is also on anticoagulation for PE, which has been on hold since surgery. Chart reviewed and patient was seen with Dr. Rea today. Review of Systems Review of Systems: All systems reviewed & are unremarkable except as noted in HPI and below Exam Const: General: comfortable, no acute distress and awake Orientation/consciousness: patient oriented x3 Extrem: Left lower extremity: hip/thigh Details: tenderness and swelling (improved, minimal); no unusual warmth Other: Left thigh dressing removed with serosanguineous drainage, swelling much improved with no remaining erythema, no purulent drainage, seton drains in place. Psych: Thought process: Normal thought process present Insight: Good insight present (Psych) Objective Data Vital Signs Vital Signs: Vital Signs - 24 hr 02/22/22 16:00 02/22/22 19:54 02/22/22 20:00 Temperature 97.8 F Pulse Rate 66 68 68 Respiratory Rate 18 Blood Pressure 140/72 Pulse Oximetry 99 Oxygen Delivery 02/22/22 20:00 02/23/22 00:00 02/23/22 04:06 Temperature Pulse Rate 58 L 59 L Respiratory Rate Blood Pressure Pulse Oximetry Oxygen Delivery Room Air 02/23/22 05:47 02/23/22 11:24 Temperature 97.6 F Pulse Rate 61 Respiratory Rate 18 Blood Pressure 118/74 Pulse Oximetry 98 Oxygen Delivery Room Air Intake/Output Intake/Output: Intake & Output 02/20/22 02/21/22 02/22/22 02/23/22 23:59 23:59 23:59 23:59 Intake Total 2019 318 3140 1080 Output Total 1924 1900 2100 1200 Balance 95 1280 1040 -120 Meds/Results Medications: Active Medications Generic Name Dose Route Start Last Admin Trade Name Freq PRN Reason Stop Dose Admin Acetaminophen 500 mg 02/21/22 09:30 Acetaminophen 500 Mg Tablet PO Q6H PRN Mild Pain (1-3) or Fever Hydrocodone Bitart/Acetaminophen 1 tab 02/21/22 09:30 Hydrocodone/Acetaminophen (*Crx) 5-325 Mg Tablet PO Q4H PRN Pain Rated 4-6 Hydrocodone Bitart/Acetaminophen 1 tab 02/21/22 09:30 02/23/22 06:15 Hydrocodone/Acetaminophen (*Crx) 10-325 Mg Tablet PO 1 tab Q6H PRN Administration Pain Rated 7-10 Alprazolam 1 mg 02/20/22 21:00 02/22/22 20:33 Alprazolam (*Crx) 0.5 Mg Tablet PO 1 mg HS FLAVIA Administration Desvenlafaxine Succinate 50 mg 02/20/22 09:00 02/23/22 09:57 Desvenlafaxine Succinate 50 Mg Tab.Er.24h PO 50 mg DAILY FLAVIA Administration Enoxaparin Sodium 95 mg 02/20/22 00:00 02/20/22 12:09 Enoxaparin 100 Mg/Ml Syringe SUB-Q 95 mg Q12H FLAVIA Administration Enoxaparin Sodium 40 mg 02/21/22 09:30 02/23/22 09:57 Enoxaparin 40 Mg/0.4 Ml Syringe SUB-Q 40 mg JADE
[2022-02-23] MEDS: ALPRAZolam (*CRX) 0.5 MG TABLET 1 MG PO (20:26)
[2022-02-23] MEDS: ROSUVASTATIN 5 MG TABLET PO (20:28)
[2022-02-24] VITALS (8 sets, daily range): BP systolic 111–122; BP diastolic 63–74; PULSE 55–86; RESP 16–18; TEMP 36.6–37.1; O2SAT 96–100
[2022-02-24] MEDS: HYDROcodone/acetaminophen (*CRX) 10-325 MG TABLET 1 TAB PO ×4 (04:09→22:08)
[2022-02-24 05:30] LABS: Hematocrit 37.2 % (42.0-52.0); Mean Corpuscular HGB Conc 32.3 g/dl (32-36); Mean Corpuscular Volume 89.9 fl (80-100); Mean Platelet Volume 9.2 fl (7.4-10.4); Platelet Count Result 390 k/mm3 (150-375); Red Blood Count 4.14 M/mm3 (4.6-6.20); Red Cell Distribution Width 13.1 % (11.5-14.5); White Blood Count 10.8 K/mm3 (4.5-10.0)
[2022-02-24 05:39] LABS: Anion Gap 11 mmol/L (8-16); Blood Urea Nitrogen 9 mg/dL (9-20); Calcium 8.2 mg/dL (8.4-10.2); Carbon Dioxide 28 mmol/L (22-30); Chloride 100 mmol/L (98-107); Estimated CRCL calculation 117 ml/min; Estimated Glomerular Filt Rate > 60; Glucose 113 mg/dL (65-110); Potassium 3.7 mmol/L (3.4-5.0); Sodium 139 mmol/L (137-145)
[2022-02-24] MEDS: VERAPAMIL HCL ER 240 MG TABLET.ER PO ×2 (09:33→20:40)
[2022-02-24] MEDS: DESVENLAFAXINE SUCCINATE 50 MG TAB.ER.24H PO (09:34)
[2022-02-24] MEDS: ENOXAPARIN 40 MG/0.4 ML SYRINGE SUB-Q (09:34)
[2022-02-24] MEDS: FAMOTIDINE 20 MG TABLET PO ×2 (09:37→20:39)
--- NOTE | 2022-02-24 10:39 | PM.IMPN ---
Progress Note: A&P Assessment and Plan (1) Cellulitis: Code(s): L03.90 - Cellulitis, unspecified Status: Acute Assessment and Plan: status post I and D continue IV antibiotics (2) Cluster headache: Code(s): G44.009 - Cluster headache syndrome, unspecified, not intractable Status: Acute Assessment and Plan: -continue with patient's her abdomen -continue with DHE -the patient also uses high-flow oxygen when he has cluster headache. (3) Pulmonary embolism: Code(s): I26.99 - Other pulmonary embolism without acute cor pulmonale Status: Inactive Assessment and Plan: stop Lovenox and transition to Eliquis (4) Borderline hyperlipidemia: Code(s): E78.5 - Hyperlipidemia, unspecified Status: Acute Assessment and Plan: -continue with rosuvastatin (5) Anxiety: Code(s): F41.9 - Anxiety disorder, unspecified Status: Acute Assessment and Plan: -continue with alprazolam Subjective Date/time seen: 02/24/22 10:39 Doing okay, pain improved Exam Narrative: Patient is comfortable, NAD HEENT: eyes are clear and none icteric LUNGS: normal respiratory effort ABD: BS+, Soft and nontender Lower extremities: no edema MS: left thigh surgical dressing SKIN: nonjaundiced Neuro: grossly intact. Objective Data Vital Signs Vital Signs: Vital Signs - 24 hr 02/23/22 11:24 02/23/22 14:00 02/23/22 12:00 Temperature 97.9 F Pulse Rate 66 65 Respiratory Rate 18 Blood Pressure 125/76 Pulse Oximetry 99 Oxygen Delivery Room Air 02/23/22 16:00 02/23/22 20:00 02/23/22 20:00 Temperature Pulse Rate 65 73 73 Respiratory Rate 18 Blood Pressure Pulse Oximetry 99 Oxygen Delivery Room Air 02/23/22 22:00 02/24/22 00:00 02/24/22 04:00 Temperature 98.4 F Pulse Rate 66 66 57 L Respiratory Rate 16 Blood Pressure 134/69 Pulse Oximetry 99 Oxygen Delivery 02/24/22 06:00 Temperature 98.7 F Pulse Rate 55 L Respiratory Rate 16 Blood Pressure 111/63 Pulse Oximetry 96 Oxygen Delivery Intake/Output Intake/Output: Intake & Output 02/21/22 02/22/22 02/23/22 02/24/22 23:59 23:59 23:59 23:59 Intake Total 3180 3140 3810 600 Output Total 1900 2100 1700 1000 Balance 1280 1040 2110 -400 Meds/Results Medications: Active Medications Generic Name Dose Route Start Last Admin Trade Name Freq PRN Reason Stop Dose Admin Acetaminophen 500 mg 02/21/22 09:30 Acetaminophen 500 Mg Tablet PO Q6H PRN Mild Pain (1-3) or Fever Hydrocodone Bitart/Acetaminophen 1 tab 02/21/22 09:30 Hydrocodone/Acetaminophen (*Crx) 5-325 Mg Tablet PO Q4H PRN Pain Rated 4-6 Hydrocodone Bitart/Acetaminophen 1 tab 02/21/22 09:30 02/24/22 04:09 Hydrocodone/Acetaminophen (*Crx) 10-325 Mg Tablet PO 1 tab Q6H PRN Administration Pain Rated 7-10 Alprazolam 1 mg 02/20/22 21:00 02/23/22 20:26 Alprazolam (*Crx) 0.5 Mg Tablet PO 1 mg HS FLAVIA Administration Apixaban 10 mg 02/24/22 21:00 Apixaban 5 Mg Tablet PO 03/03/22 20:59 Q12HR FLAVIA Apixaban 5 mg 02/24/22 21:00 Apixaban 5 Mg Tablet PO Q12HR FLAVIA Desvenlafaxine Succinate 50 mg 02/20/22 09:00 02/24/22 09:34 Desvenlafaxine Succinate 50 Mg Tab.Er.24h PO 50 mg DAILY FLAVIA Administration Famotidine 20 mg 02/21/22 09:30 02/24/22 09:37 Famotidine 20 Mg Tablet PO 20 mg Q12HR FLAVIA Administration Vancomycin HCl 1,750 mg in 500 mls @ 250 mls/hr 02/21/22 03:00 02/24/22 05:20 Vancomycin 1,750 Mg/D5w 500 Ml IVPB Infused Q12H FLAVIA Infusion Piperacillin/Tazobactam/Dextrose 3.375 gm in 50 mls @ 100 mls/hr 02/21/22 12:00 02/24/22 06:35 Zosyn 3.375 Gm/D5w 50ml Pm IVPB Infused Q6HR FLAVIA Infusion Melatonin 10 mg 02/20/22 10:59 Melatonin 5 Mg Tablet PO HS PRN Insomnia Morphine Sulfate 2 mg 02/21/22 09:30 02/22/22 13:29 Morphine Sulfate (*Crx) 2 Mg/Ml
--- NOTE | 2022-02-24 14:12 | PM.PNGS ---
Progress Note: A&P Assessment and Plan (1) Abscess of left thigh: Code(s): L02.416 - Cutaneous abscess of left lower limb Status: Acute Assessment and Plan: Continues to improve, healing well. Continue gauze dressing changes. Cultures growing MRSA, stop IV Zosyn and continue IV Vancomycin. Will re-evaluate tomorrow. (2) Insect bite of thigh, left, infected: Code(s): S70.362A - Insect bite (nonvenomous), left thigh, initial encounter; L08.9 - Local infection of the skin and subcutaneous tissue, unspecified; W57.XXXA - Bitten or stung by nonvenomous insect and other nonvenomous arthropods, initial encounter Status: Acute (3) Chronic anticoagulation: Code(s): Z79.01 - [facility] (current) use of anticoagulants Status: Acute Assessment and Plan: Apixaban resumed. Plan I have discussed the patient's case and plan of care with Dr. Rea. Subjective Subjective Date/Time Seen: 02/24/22 14:12 Post Op day: 3 (I&D complicated left posterior thigh abscess) Patient reports: no new complaints and afebrile Interval history: Patient seen and examined. Dressing changed earlier today by Dr. Rea. No new complaints. Still having pain in the left thigh but controlled by oral analgesics. Review of Systems Review of Systems: All systems reviewed & are unremarkable except as noted in HPI and below Exam Const: General: comfortable, no acute distress and awake Orientation/consciousness: patient oriented x3 Extrem: Left lower extremity: edema Other: Left thigh dressing dry and intact Psych: Affect: normal affect Thought process: Normal thought process present Objective Data Vital Signs Vital Signs: Vital Signs - 24 hr 02/23/22 16:00 02/23/22 20:00 02/23/22 20:00 Temperature Pulse Rate 65 73 73 Respiratory Rate 18 Blood Pressure Pulse Oximetry 99 Oxygen Delivery Room Air 02/23/22 22:00 02/24/22 00:00 02/24/22 04:00 Temperature 98.4 F Pulse Rate 66 66 57 L Respiratory Rate 16 Blood Pressure 134/69 Pulse Oximetry 99 Oxygen Delivery 02/24/22 06:00 02/24/22 09:00 02/24/22 09:00 Temperature 98.7 F Pulse Rate 55 L 63 Respiratory Rate 16 Blood Pressure 111/63 Pulse Oximetry 96 Oxygen Delivery Room Air Intake/Output Intake/Output: Intake & Output 02/21/22 02/22/22 02/23/22 02/24/22 23:59 23:59 23:59 23:59 Intake Total 3180 3140 3810 1390 Output Total 1900 2100 1700 1000 Balance 1280 1040 2110 390 Meds/Results Medications: Active Medications Generic Name Dose Route Start Last Admin Trade Name Freq PRN Reason Stop Dose Admin Acetaminophen 500 mg 02/21/22 09:30 Acetaminophen 500 Mg Tablet PO Q6H PRN Mild Pain (1-3) or Fever Hydrocodone Bitart/Acetaminophen 1 tab 02/21/22 09:30 Hydrocodone/Acetaminophen (*Crx) 5-325 Mg Tablet PO Q4H PRN Pain Rated 4-6 Hydrocodone Bitart/Acetaminophen 1 tab 02/21/22 09:30 02/24/22 11:05 Hydrocodone/Acetaminophen (*Crx) 10-325 Mg Tablet PO 1 tab Q6H PRN Administration Pain Rated 7-10 Alprazolam 1 mg 02/20/22 21:00 02/23/22 20:26 Alprazolam (*Crx) 0.5 Mg Tablet PO 1 mg HS FLAVIA Administration Apixaban 10 mg 02/24/22 21:00 Apixaban 5 Mg Tablet PO 03/03/22 09:01 Q12HR FLAVIA Apixaban 5 mg 03/03/22 21:00 Apixaban 5 Mg Tablet PO Q12HR FLAVIA Desvenlafaxine Succinate 50 mg 02/20/22 09:00 02/24/22 09:34 Desvenlafaxine Succinate 50 Mg Tab.Er.24h PO 50 mg DAILY FLAVIA Administration Famotidine 20 mg 02/21/22 09:30 02/24/22 09:37 Famotidine 20 Mg Tablet PO 20 mg Q12HR FLAVIA Administration Vancomycin HCl 1,750 mg in 500 mls @ 250 mls/hr 02/21/22 03:00 02/24/22 05:20 Vancomycin 1,750 Mg/D5w 500 Ml IVPB Infused Q12H FLAVIA Infusion Piperacillin/Tazobactam/Dextrose 3.375 gm in 50 mls @ 100 mls/hr 02/21/22 12:00 02/24/22 13:03 Zosyn 3.375 Gm/D5w 50ml Pm IVPB 100 mls/hr Q6HR FLAVIA Ad
[2022-02-24] MEDS: ALPRAZolam (*CRX) 0.5 MG TABLET 1 MG PO (20:39)
[2022-02-24] MEDS: APIXABAN 5 MG TABLET 10 MG PO (20:39)
[2022-02-24] MEDS: ROSUVASTATIN 5 MG TABLET PO (20:39)
[2022-02-25] VITALS (9 sets, daily range): BP systolic 113–122; BP diastolic 55–70; PULSE 56–72; RESP 14–18; TEMP 36.2–36.9; O2SAT 99–100
[2022-02-25] MEDS: HYDROcodone/acetaminophen (*CRX) 10-325 MG TABLET 1 TAB PO ×3 (05:17→19:53)
[2022-02-25 05:38] LABS: Hematocrit 38.3 % (42.0-52.0); Hemoglobin 12.6 g/dL (14.0-18.0); Mean Corpuscular HGB Conc 32.9 g/dl (32-36); Mean Corpuscular Volume 88.2 fl (80-100); Platelet Count Result 416 k/mm3 (150-375); Red Blood Count 4.34 M/mm3 (4.6-6.20); Red Cell Distribution Width 13.1 % (11.5-14.5); White Blood Count 12.3 K/mm3 (4.5-10.0)
[2022-02-25 05:46] LABS: Anion Gap 6 mmol/L (8-16); Blood Urea Nitrogen 10 mg/dL (9-20); Calcium 9.1 mg/dL (8.4-10.2); Carbon Dioxide 28 mmol/L (22-30); Chloride 102 mmol/L (98-107); Estimated CRCL calculation 117 ml/min; Estimated Glomerular Filt Rate > 60; Glucose 119 mg/dL (65-110); Potassium 3.9 mmol/L (3.4-5.0); Sodium 136 mmol/L (137-145)
[2022-02-25] MEDS: VERAPAMIL HCL ER 240 MG TABLET.ER PO ×2 (09:40→19:53)
[2022-02-25] MEDS: DESVENLAFAXINE SUCCINATE 50 MG TAB.ER.24H PO (09:40)
[2022-02-25] MEDS: APIXABAN 5 MG TABLET 10 MG PO ×2 (09:41→19:52)
[2022-02-25] MEDS: FAMOTIDINE 20 MG TABLET PO ×2 (09:46→19:52)
--- NOTE | 2022-02-25 11:20 | PM.PNGS ---
Progress Note: A&P Assessment and Plan (1) Abscess of left thigh: Code(s): L02.416 - Cutaneous abscess of left lower limb Status: Acute Assessment and Plan: Still complaining of pain in his left posterior thigh now radiating down to his calf. He feels like this is actually worse last night and today. The abscess is adequately drained and his left leg continues to improve on exam daily. Some of this pain could be related to the seton drains but not sure why this is worse today. Will monitor him again overnight and continue using the [place] as needed with IV Morphine as an option for breakthrough pain. Continue antibiotics. Reassess again tomorrow. 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 Plan I have discussed the patient's case and plan of care with Dr. Rea. Subjective Subjective Date/Time Seen: 02/25/22 11:20 Post Op day: 4 (I&D left posterior thigh abscess) Patient reports: still having pain, tolerating a regular diet, voiding w/o difficulty, nausea (mild, intermittent, tolerating his diet) and afebrile Interval history: Patient seen and examined. He reports having more left lower extremity pain today. The pain kept him up through the night a few times. He has been taking [place] 10-325 mg every 6 hours without much relief. He feels his pain is in the posterior left thigh but also extending down now behind the left knee and into the left calf. Review of Systems Review of Systems: All systems reviewed & are unremarkable except as noted in HPI and below Exam Const: General: comfortable and no acute distress Orientation/consciousness: patient oriented x3 Extrem: Left lower extremity: hip/thigh Details: tenderness (mostly in the posterior thigh and knee) and swelling (continues to improve on exam today); no unusual warmth and foot (sensation intact) Details: normal capillary refill and normal to inspection; no tenderness and no unusual warmth Other: Dressing removed from left thigh and the overall swelling continues to improve. No residual erythema. Induration continues to improve. No abnormalities of the lower leg on exam other than slight swelling when compared to the right leg, which is improving daily. Psych: Thought process: Normal thought process present Insight: Good insight present (Psych) Objective Data Vital Signs Vital Signs: Vital Signs - 24 hr 02/24/22 14:00 02/24/22 16:00 02/24/22 20:00 Temperature 98 F Pulse Rate 86 65 67 Respiratory Rate 18 Blood Pressure 122/74 Pulse Oximetry 99 Oxygen Delivery 02/24/22 20:00 02/24/22 22:00 02/25/22 00:00 Temperature 98.2 F Pulse Rate 67 63 63 Respiratory Rate 18 16 Blood Pressure 120/64 Pulse Oximetry 99 100 Oxygen Delivery Room Air 02/25/22 04:00 02/25/22 06:00 02/25/22 09:15 Temperature 98.5 F Pulse Rate 64 58 L 60 Respiratory Rate 14 Blood Pressure 122/70 Pulse Oximetry 99 Oxygen Delivery 02/25/22 09:15 Temperature Pulse Rate Respiratory Rate Blood Pressure Pulse Oximetry Oxygen Delivery Room Air Intake/Output Intake/Output: Intake & Output 02/22/22 02/23/22 02/24/22 02/25/22 23:59 23:59 23:59 23:59 Intake Total 3140 3810 6220 1220 Output Total 2100 1700 1000 Balance 1040 2110 5220 1220 Meds/Results Medications: Active Medications Generic Name Dose Route Start Last Admin Trade Name Freq PRN Reason Stop Dose Admin Acetaminophen 500 mg 02/21/22 09:30 Acetaminophen 500 Mg Tablet PO Q6H PRN Mild Pain (1-3) or Feve
[2022-02-25] MEDS: HYDROcodone/acetaminophen (*CRX) 5-325 MG TABLET 1 TAB PO (15:09)
--- NOTE | 2022-02-25 15:22 | PM.IMPN ---
Progress Note: A&P Assessment and Plan (1) Cellulitis: Code(s): L03.90 - Cellulitis, unspecified Status: Acute Assessment and Plan: status post I and D continue IV antibiotics 02/25/2022 interval history:?patient with left thigh abscess was seen by surgery service and was taken to OR, had I and D of complicated left posterior thigh abscess, on 02/21 ? blood culture no growth so far, wound culture was collected and it is growing MRSA patient is being treated vancomycin,? there is also concerned patient has PE but no DVT, patient was? started on therapeutic Lovenox, now patient is being treated Eliquis 10 mg b.i.d., patient was seen by surgery service today recommended to monitor patient 1 more day, ? will? CPM and further recommendation to follow (2) Cluster headache: Code(s): G44.009 - Cluster headache syndrome, unspecified, not intractable Status: Acute Assessment and Plan: -continue with patient's her abdomen -continue with DHE -the patient also uses high-flow oxygen when he has cluster headache. (3) Pulmonary embolism: Code(s): I26.99 - Other pulmonary embolism without acute cor pulmonale Status: Inactive Assessment and Plan: stop Lovenox and transition to Eliquis (4) Borderline hyperlipidemia: Code(s): E78.5 - Hyperlipidemia, unspecified Status: Acute Assessment and Plan: -continue with rosuvastatin (5) Anxiety: Code(s): F41.9 - Anxiety disorder, unspecified Status: Acute Assessment and Plan: -continue with alprazolam Subjective Date/time seen: 02/25/22 15:22 02/25/2022 interval history:?patient with left thigh abscess was seen by surgery service and was taken to OR, had I and D of complicated left posterior thigh abscess, on 02/21 ? blood culture no growth so far, wound culture was collected and it is growing MRSA patient is being treated vancomycin,? there is also concerned patient has PE but no DVT, patient was? started on therapeutic Lovenox, now patient is being treated Eliquis 10 mg b.i.d., patient was seen by surgery service today recommended to monitor patient 1 more day, ? will? CPM and further recommendation to follow. Review of Systems Review of Systems: All systems reviewed & are unremarkable except as noted in HPI and below ( HPI and those items noted below) Exam Narrative: Patient is comfortable, NAD HEENT: eyes are clear and none icteric LUNGS: normal respiratory effort ABD: BS+, Soft and nontender Lower extremities: no edema MS: left thigh surgical dressing SKIN: nonjaundiced Neuro: grossly intact. Objective Data Vital Signs Vital Signs: Vital Signs - 24 hr 02/24/22 16:00 02/24/22 20:00 02/24/22 20:00 Temperature Pulse Rate 65 67 67 Respiratory Rate 18 Blood Pressure Pulse Oximetry 99 Oxygen Delivery Room Air 02/24/22 22:00 02/25/22 00:00 02/25/22 04:00 Temperature 98.2 F Pulse Rate 63 63 64 Respiratory Rate 16 Blood Pressure 120/64 Pulse Oximetry 100 Oxygen Delivery 02/25/22 06:00 02/25/22 09:15 02/25/22 09:15 Temperature 98.5 F Pulse Rate 58 L 60 Respiratory Rate 14 Blood Pressure 122/70 Pulse Oximetry 99 Oxygen Delivery Room Air 02/25/22 12:00 02/25/22 14:00 Temperature 97.1 F L Pulse Rate 66 61 Respiratory Rate 18 Blood Pressure 113/70 Pulse Oximetry 100 Oxygen Delivery Intake/Output Intake/Output: Intake & Output 02/22/22 02/23/22 02/24/22 02/25/22 23:59 23:59 23:59 23:59 Intake Total 3140 3810 6220 1460 Output Total 2100 1700 1000 Balance 1040 2110 5220 1460 Meds/Results Medications: Active Medications Generic Name Dose Route Start Last Admin Trade Name Freq PRN Reason Stop Dose Admin Acetaminophen 500 mg 02/21/22 09:30 Acetaminophen 500 Mg Tablet PO Q6H PRN Mild Pain (1-3) or Fever Hydrocodone Bitart/Acetaminophen 1 tab 02/21/22 09:30 02/25/22 15:09 Hydrocodone/A
[2022-02-25] MEDS: ROSUVASTATIN 5 MG TABLET PO (19:52)
[2022-02-25] MEDS: ALPRAZolam (*CRX) 0.5 MG TABLET 1 MG PO (19:52)
[2022-02-26] VITALS: PULSE 65
[2022-02-26] MEDS: HYDROcodone/acetaminophen (*CRX) 10-325 MG TABLET 1 TAB PO ×3 (02:35→14:28)
[2022-02-26 04:00] VITALS: PULSE 55
[2022-02-26 05:45] LABS: Hematocrit 40.2 % (42.0-52.0); Hemoglobin 12.8 g/dL (14.0-18.0); Mean Corpuscular HGB Conc 31.8 g/dl (32-36); Mean Corpuscular Hemoglobin 28.8 pg (26-34); Mean Corpuscular Volume 90.3 fl (80-100); Mean Platelet Volume 8.9 fl (7.4-10.4); Platelet Count Result 427 k/mm3 (150-375); Red Blood Count 4.45 M/mm3 (4.6-6.20); Red Cell Distribution Width 13.2 % (11.5-14.5); White Blood Count 13.8 K/mm3 (4.5-10.0)
[2022-02-26 05:52] LABS: Anion Gap 7 mmol/L (8-16); Blood Urea Nitrogen 13 mg/dL (9-20); Calcium 8.9 mg/dL (8.4-10.2); Carbon Dioxide 29 mmol/L (22-30); Chloride 99 mmol/L (98-107); Estimated CRCL calculation 117 ml/min; Estimated Glomerular Filt Rate > 60; Glucose 93 mg/dL (65-110); Potassium 4.4 mmol/L (3.4-5.0); Sodium 135 mmol/L (137-145)
[2022-02-26 06:00] VITALS: BP 112/69; PULSE 57; RESP 16; TEMP 36.4; O2SAT 97
[2022-02-26] MEDS: ACETAMINOPHEN 500 MG TABLET PO (06:06)
[2022-02-26 08:30] VITALS: PULSE 55
[2022-02-26] MEDS: DESVENLAFAXINE SUCCINATE 50 MG TAB.ER.24H PO (08:40)
[2022-02-26] MEDS: APIXABAN 5 MG TABLET 10 MG PO (08:40)
[2022-02-26] MEDS: VERAPAMIL HCL ER 240 MG TABLET.ER PO (08:40)
[2022-02-26] MEDS: FAMOTIDINE 20 MG TABLET PO (08:40)
[2022-02-26 12:00] VITALS: PULSE 76
--- NOTE | 2022-02-26 12:34 | PM.PNGS ---
Progress Note: A&P Assessment and Plan (1) Abscess of left thigh: Code(s): L02.416 - Cutaneous abscess of left lower limb Status: Acute Assessment and Plan: Although his WBC has slowly trended up over the past few days, there is no signs of residual or extended infection on exam. He continues to improve and is healing well. He is afebrile. Seton drains were removed today. Okay to discharge the patient from a surgical standpoint today. Follow up with Dr. Rea in 1 week. Would recommend continuing another 5 days of oral antibiotics, such as Bactrim. 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 Plan I have discussed the patient's case and plan of care with Dr. Rea. Subjective Subjective Date/Time Seen: 02/26/22 12:34 Post Op day: 5 (I&D complicated left posterior thigh abscess) Patient reports: no new complaints, feels better, pain is less, tolerating a regular diet and afebrile Interval history: Patient reports feeling better today. His pain in his left leg has improved. His pain is controlled with oral analgesics. No other complaints at this time. The patient is seen with Dr. Rea. Review of Systems Review of Systems: All systems reviewed & are unremarkable except as noted in HPI and below Exam Const: General: comfortable and no acute distress Orientation/consciousness: patient oriented x3 Extrem: Other: Dressing removed from left thigh. No erythema and overall swelling has nearly completely resolved. Continues to improve. No purulent drainage. No signs of residual abscess or infection. Seton drains removed. Psych: Mental Status: mental status grossly normal Insight: Good insight present (Psych) Objective Data Vital Signs Vital Signs: Vital Signs - 24 hr 02/25/22 14:00 02/25/22 16:00 02/25/22 19:45 Temperature 97.1 F L 97.6 F Pulse Rate 61 56 L 64 Respiratory Rate 18 16 Blood Pressure 113/70 116/55 L Pulse Oximetry 100 100 Oxygen Delivery 02/25/22 20:00 02/25/22 20:00 02/26/22 00:00 Temperature Pulse Rate 64 72 65 Respiratory Rate 16 Blood Pressure Pulse Oximetry 100 Oxygen Delivery Room Air 02/26/22 04:00 02/26/22 06:00 02/26/22 08:30 Temperature 97.5 F L Pulse Rate 55 L 57 L 55 L Respiratory Rate 16 Blood Pressure 112/69 Pulse Oximetry 97 Oxygen Delivery 02/26/22 08:30 Temperature Pulse Rate Respiratory Rate Blood Pressure Pulse Oximetry Oxygen Delivery Room Air Intake/Output Intake/Output: Intake & Output 02/23/22 02/24/22 02/25/22 02/26/22 23:59 23:59 23:59 23:59 Intake Total 3810 6220 4570 1160 Output Total 1700 1106 623 6086 Balance 2110 5220 4120 160 Meds/Results Medications: Active Medications Generic Name Dose Route Start Last Admin Trade Name Freq PRN Reason Stop Dose Admin Acetaminophen 500 mg 02/21/22 09:30 02/26/22 06:06 Acetaminophen 500 Mg Tablet PO 500 mg Q6H PRN Administration Mild Pain (1-3) or Fever Hydrocodone Bitart/Acetaminophen 1 tab 02/21/22 09:30 02/25/22 15:09 Hydrocodone/Acetaminophen (*Crx) 5-325 Mg Tablet PO 1 tab Q4H PRN Administration Pain Rated 4-6 Hydrocodone Bitart/Acetaminophen 1 tab 02/21/22 09:30 02/26/22 08:40 Hydrocodone/Acetaminophen (*Crx) 10-325 Mg Tablet PO 1 tab Q6H PRN Administration Pain Rated 7-10 Alprazolam 1 mg 02/20/22 21:00 02/25/22 19:52 Alprazolam (*Crx) 0.5 Mg Tablet PO 1 mg HS FLAVIA Administration Apixaban 10 mg 02/24/22 21:00 02/26/22 08:40 Apixaban
--- NOTE | 2022-02-26 13:17 | PM.DS ---
DS: Admitting Diagnosis Discharge Date 02/26/2022 Admitting Diagnosis Left chest pain left leg pain DS: Discharge Diagnosis Discharge Diagnosis (1) Cellulitis: Code(s): L03.90 - Cellulitis, unspecified Status: Acute Assessment and Plan: status post I and D continue IV antibiotics 02/25/2022 interval history:?patient with left thigh abscess was seen by surgery service and was taken to OR, had I and D of complicated left posterior thigh abscess, on 02/21 ? blood culture no growth so far, wound culture was collected and it is growing MRSA patient is being treated vancomycin,? there is also concerned patient has PE but no DVT, patient was? started on therapeutic Lovenox, now patient is being treated Eliquis 10 mg b.i.d., patient was seen by surgery service today recommended to monitor patient 1 more day, ? will? CPM and further recommendation to follow (2) Cluster headache: Code(s): G44.009 - Cluster headache syndrome, unspecified, not intractable Status: Acute Assessment and Plan: -continue with patient's her abdomen -continue with DHE -the patient also uses high-flow oxygen when he has cluster headache. (3) Pulmonary embolism: Code(s): I26.99 - Other pulmonary embolism without acute cor pulmonale Status: Inactive Assessment and Plan: stop Lovenox and transition to Eliquis (4) Borderline hyperlipidemia: Code(s): E78.5 - Hyperlipidemia, unspecified Status: Acute Assessment and Plan: -continue with rosuvastatin (5) Anxiety: Code(s): F41.9 - Anxiety disorder, unspecified Status: Acute Assessment and Plan: -continue with alprazolam DS: Summary Hospital Course Reason for hospitalization: Chief Complaint: Left chest pain left leg pain Narrative: This is a 51-year-old male patient came to the emergency room for evaluation of worsening cellulitis.? The patient stated that he had been on Omnicef for his left thigh cellulitis.? His behind the left leg.? The patient also was complaining of left lower rib pain that was worsened with movement and inspiration.? The patient has had no recent surgery but he has been in the process of moving out of his house.? The patient had no injury to the left leg but thinks that he may have gotten a spider bite.? The swelling and redness has gotten worse.? Venous Dopplers pain bilateral lower extremity veins.? No evidence of deep vein thrombosis.? CT of the femur shows subcutaneous fat stranding and posterior lateral left thigh, consistent with cellulitis.? No drainable abscess.? The patient has an elevated area that feels that it could be I and D however the CT scan does not show any drainable abscess.? Chest CTA was read as possible pulmonary emboli in segmental branches of the left lower lobes, sensitivity significantly limited by motion artifact.? The patient was complaining of discomfort so I ordered a [place] for him.? The patient was started on subcu Lovenox, and vancomycin.? The patient was initially admitted to inpatient status but changed to observation on the date of service of 02/19/2022. Hospital Course: patient with left thigh abscess was seen by surgery service and was taken to OR, had I and D of complicated left posterior thigh abscess, on 02/21 ? blood culture no growth so far, wound culture was collected and it is growing MRSA patient is being treated vancomycin,? there is also concerned patient has PE but no DVT, patient was? started on therapeutic Lovenox,? now patient is being treated Eliquis 10 mg b.i.d.,? patient was seen by surgery service today recommended to monitor patient 1 more day, ? will? CPM and further recommendation to follow patient remains clinically will discharge the patient today. Time Spent with Patient Time attestation: Total time spent providing and/or coordinating discharge services: Exam Narrative: Patient is comfortable, NAD HEENT: eyes are clear and none icteric HAO
[2022-02-26 14:00] VITALS: BP 135/90; PULSE 62; RESP 18; TEMP 36.6; O2SAT 100
== END 2022-02-26 15:40 | disposition home health service (06) | DRG 602 ==
LOC: ANHED 13:06 → ANH3MED 17:26
PROVIDERS: Chiropractor; Nurse Practitioner; Surgery; Admitting Provider Internal Medicine; Emergency Provider Emergency Medicine; Visit Provider Family Medicine
PROC: 0J9M0ZX Drainage of Left Upper Leg Subcutaneous Tissue and Fascia, Open Approach, Diagnostic (ICD-10-PCS; principal; 2022-02-21 07:30)
DX: L02.416 Cutaneous abscess of left lower limb (principal); I26.99 Other pulmonary embolism without acute cor pulmonale; L03.116 Cellulitis of left lower limb; G44.009 Cluster headache syndrome, unspecified, not intractable; E78.5 Hyperlipidemia, unspecified; Z20.822 Contact with and (suspected) exposure to COVID-19; F41.9 Anxiety disorder, unspecified; B95.62 Methicillin resistant Staphylococcus aureus infection as the cause of diseases classified elsewhere; R07.81 Pleurodynia; F17.210 Nicotine dependence, cigarettes, uncomplicated; S70.362A Insect bite (nonvenomous), left thigh, initial encounter; W57.XXXA Bitten or stung by nonvenomous insect and other nonvenomous arthropods, initial encounter
CPT/HCPCS: 36415; 71275; 73701; 76882; 80048; 80053; 80202; 82728; 83605; 83615; 83735; 84484; 85025; 85027; 85380; 86140; 87040; 87070; 87075; 87147; 87181; 87186; 87205; 93005; 93306; 93970; 96365; 96366; 96376; 97161; 99285; A9270; C9803; G0378; J0330; J1650; J1741; J2250; J2270; J2543; J2704; J3010; J3370; J7120; Q9967; U0003; U0005

== ENCOUNTER 2022-03-02 20:49 | Inpatient (IN) | payer BC, SELFPAY ==
--- NOTE | ~2022-03-02 | CT_ITS ---
EXAMINATION: CTA chest PE protocol DATE: 03/03/2022 18:08 INDICATION: Follow-up of subsegmental pulmonary emboli of left upper and lower lobes TECHNIQUE: Computed tomography angiography (CTA) of the chest was performed with 100 mL Omnipaque-350 intravenous contrast timed to evaluate the pulmonary arteries. Coronal maximum intensity projection 3D-reconstructions were created by the technologist. Automated exposure control and iterative reconst ruction technique were employed. Exam dose: 365.62 mGy-cm total exam DLP. COMPARISON: 02/19/2022 CT pulmonary scan FINDINGS: There is diagnostic contrast enhancement of the pulmonary arteries. There is minimal residu al embolism in the anterior basilar segment of the left lower lobe. No thoracic aortic aneurysm. No hilar or mediastinal mass lesion or lymphadenopathy. Normal heart size. No pericardial or pleural effusion. Lungs are clear of infiltrate or consolidation. Normal morphology of the adrenal glands. Included skeletal structures are unremarkable. IMPRESSION: Minimal residual embolism in the anterior basilar segment, left lower lobe Reviewed, dictated and finalized at [facility]. Reviewed, dictated and finalized at location B. IMPRESSION: Minimal residual embolism in the anterior basilar segment, left lo wer lobe
--- NOTE | ~2022-03-02 | CT_ITS ---
EXAMINATION: CT LE LT w con DATE: 03/03/2022 00:21 INDICATION: Left thigh pain. TECHNIQUE: Computed tomography (CT) of the left lower limb was performed with 100 mL Omnipaque 350 in travenous contrast. Automated exposure control and iterative reconstruction technique were employed. The dose-length product was 614.85 mGy-cm. COMPARISON: CT 02/19/2022 FINDINGS: Bone alignment is normal. No fracture. There is mild left hip osteoarthritis. No knee joint effusion. In the posterior thigh compartment, there is a large hematoma measuring 10.6 x 6.3 cm muhammad sverse by 40 cm craniocaudal. There is active extravasation of contrast in the hematoma posteriorly. IMPRESSION: 1. Large hematoma in the posterior left thigh compartment with active extravasation of contrast. Reviewed, dictated and finalized at location A. IMPRESSION: 1. Large hematoma in the posterior left thigh compartment with active extravasa tion of contrast.
--- NOTE | ~2022-03-02 | US_ITS ---
EXAMINATION: US venous doppler [facility] DATE: 03/10/2022 13:28 INDICATION: Left lower limb swelling. TECHNIQUE: Grayscale ultrasound images without and with compression and Doppler ultrasound images of the left lower extremity veins were obtained. COMPARISON: Ultrasound 02/19/2022 FINDINGS: The visualized portions of left common femoral vein, profunda (deep) femoral vein, femoral vein, popl iteal vein, peroneal veins, posterior tibial veins, and greater saphenous vein outflow are patent. IMPRESSION: 1. No deep venous thrombosis. Reviewed, dictated and finalized at location A.
[2022-03-02 20:59] VITALS: BP 127/88; PULSE 104; RESP 22; TEMP 36.3; O2SAT 99
--- NOTE | 2022-03-02 21:49 | ED.GENADULT ---
HPI - General Adult General Chief complaint: Wound/Laceration Stated complaint: LLE PAIN & WOUNDS Time Seen by Provider: 03/02/22 21:47 History of Present Illness HPI narrative: This is a 51-year-old male presents to ED with left lower extremity pain. Patient states that he had a large I and D performed in the back of his left leg at this hospital. After that he was discharged on antibiotics that cover MRSA. During his admission he was also diagnosed with a pulmonary embolism and placed on Eliquis. He has been doing well at home over the last several days he has had increased pain and bleeding from his left leg. He also has some new pain in his left hip and left groin. He denies fever, chills, nausea vomiting or diarrhea. He has been taking his medication as directed. He has taken [place] at home with no relief. Related Data Home Medications Medication Instructions Recorded Confirmed alprazolam 1 mg tablet 1 mg PO DAILY 02/19/22 02/19/22 desvenlafaxine succinate 50 mg 50 mg PO DAILY 02/19/22 02/19/22 tablet,extended release 24 hr dihydroergotamine (Trudhesa) 0.725 mg intranasal PRN PRN 02/19/22 02/19/22 headaches melatonin 10 mg tablet 20 mg PO HS PRN Insomnia 02/19/22 02/19/22 rosuvastatin 5 mg tablet 5 mg PO DAILY 02/19/22 02/19/22 verapamil 240 mg tablet,extended 240 mg PO BID 02/19/22 02/19/22 release Allergies Allergy/AdvReac Type Severity Reaction Status Date / Time cefaclor [From Ceclor] AdvReac Diarrhea Verified 03/02/22 20:54 cefuroxime [From Ceftin] AdvReac Diarrhea Verified 03/02/22 20:54 Review of Systems Review of Systems: CONSTITUTIONAL: Denies night sweats. EYES: No eye pain ENT: Denies rhinorrhea CARDIOVASCULAR: Denies palpitations RESPIRATORY: Denies hemoptysis GASTROINTESTINAL: Denies hematemesis GENITOURINARY: Denies hematuria. SKIN: Denies rash MUSCULOSKELETAL: Denies myalgia. NEUROLOGIC: Denies weakness. PSYCHIATRIC: Denies delusions PMFSH Past Medical History Medical History Anxiety Borderline hyperlipidemia Cluster headache Pulmonary embolism Surgical History Surgical History H/O hernia repair S/P orchiectomy Family History Family History Father Lung cancer Sibling Lung cancer Social History Social History Social History: The patient continues to smoke 1 pack a cigarettes a day. He lives with his . He has 1 biologic child and has 1 step child. He works for [employer] He denies any alcohol or any other illicit drugs. Code status full code Smoking packs per day: 1 Smoking cigarettes per day: 20.0 Years smoked: 35 Smoking pack-years: 35.00 Smoking status: Current some day smoker Tobacco type: cigarettes Second hand tobacco smoke exposure: Yes Alcohol intake: never Substance use: current Substance use type: marijuana Gender identity (if verbalized by the patient): Male Sexual Orientation (if Verbalized by the Patient): Straight or Heterosexual Spiritual care concerns: No Exam Narrative: APPEARANCE: Patient is laying on his right side P. He appears uncomfortable. Head atraumatic. EYES: PERRLA/EOMI, NOSE: Normal no drainage NECK: Supple, Trachea midline RESPIRATORY: CTAB, No increased work of breathing. CARDIOVASCULAR: S1S2 appreciated ABDOMINAL: Soft, nontender, nondistended, MUSCULOSKELETAl: Focal exam of the left lower extremity revealed 3 incisions on the back of his left thigh. There is no active bleeding. There is induration around the incision sites but no overlying erythema. There are no areas of fluctuance. There is no palpable crepitus. Cap refill is less than 2 seconds and PT and DP pulses are intact. Sensation light touch is intact. NEURO: Alert. M
[2022-03-02] MEDS: HYDROmorphone HCL INJ (*CRX) 1 MG/ML SYR IV PUSH (22:32)
[2022-03-02 22:44] VITALS: BP 132/85; PULSE 90; RESP 20; O2SAT 98
[2022-03-02 23:15] LABS: Anion Gap 9 mmol/L (8-16); Blood Urea Nitrogen 17 mg/dL (9-20); Calcium 8.7 mg/dL (8.4-10.2); Carbon Dioxide 24 mmol/L (22-30); Chloride 99 mmol/L (98-107); Estimated CRCL calculation 105 ml/min; Estimated Glomerular Filt Rate > 60; Glucose 129 mg/dL (65-110); Potassium 4.2 mmol/L (3.4-5.0); Sodium 132 mmol/L (137-145)
[2022-03-02 23:16] LABS: Lactic Acid Reflex 0.9 mmol/L (0.7-2.0)
[2022-03-02 23:20] LABS: Basophils Absolute Auto 0.1 K/mm3 (0.0-0.1); Basophils Percent Auto 0.3 % (0.2-1.2); Eosinophils Percent Auto 0.2 % (0-4.4); Hematocrit 31.5 % (42.0-52.0); Hemoglobin 10.3 g/dL (14.0-18.0); Immature Granulocyte Absolute 0.33 K/mm3 (0.00-0.031); Immature Granulocyte Percent A 1.3 % (0-0.5); Lymphocytes Absolute Auto 2.73 K/mm3 (0.9-3.2); Lymphocytes Percent Auto 10.4 % (18.3-44.2); Mean Corpuscular HGB Conc 32.7 g/dl (32-36); Mean Corpuscular Hemoglobin 28.9 pg (26-34); Mean Corpuscular Volume 88.5 fl (80-100); Mean Platelet Volume 9.1 fl (7.4-10.4); Monocytes Absolute Auto 1.3 K/mm3 (0.1-0.6); Monocytes Percent Auto 4.8 % (2.6-8.5); Neutrophils Absolute Auto 21.9 K/mm3 (1.3-6.7); Platelet Count Result 408 k/mm3 (150-375); Red Blood Count 3.56 M/mm3 (4.6-6.20); Red Cell Distribution Width 13.4 % (11.5-14.5); White Blood Count 26.3 K/mm3 (4.5-10.0)
[2022-03-03 00:27] VITALS: BP 148/95; O2SAT 100
[2022-03-03 00:30] VITALS: BP 147/94; O2SAT 100
[2022-03-03] MEDS: HYDROmorphone HCL INJ (*CRX) 1 MG/ML SYR IV PUSH ×3 (00:32→21:12)
[2022-03-03] MEDS: PIPERACILLIN/TAZOBACTAM SOD 4.5 GM in SODIUM CHLORIDE 0.9% IV 100 ML 200 ML IVPB (03:08)
[2022-03-03] MEDS: HYDROmorphone HCL INJ (*CRX) 1 MG/ML SYR 0.5 MG IV PUSH ×2 (04:41→08:14)
[2022-03-03 04:47] VITALS: BP 141/87; PULSE 94; RESP 18; O2SAT 100
--- NOTE | 2022-03-03 05:29 | PC.NURSE ---
Pt has wound charted. There are 3 incisions to the right leg all documented under the one wound.
[2022-03-03 06:00] VITALS: BMI 24.9
--- NOTE | 2022-03-03 06:10 | ADMGEN ---
This patient, Kory Smith, was admitted to [address] [facility] Surg Room 301-01. Patient/family oriented to hospital policies and general routines including ID bracelet, bed and alarms, visiting hours, pain management, procedures, bathroom and other care routines, personal items, smoking policy, room service/diet, and visiting hours. Information on how to activate the Rapid Response Team has been discussed. Patient/Family are encouraged to report perceived risks to care and to ask questions if they do not understand what they are told or what they should do.
[2022-03-03] MEDS: SODIUM CHLORIDE 0.9% IV 1,000 ML 150 ML IV CONT ×2 (07:49→13:56)
[2022-03-03 08:01] LABS: Basophils Absolute Auto 0.1 K/mm3 (0.0-0.1); Basophils Percent Auto 0.5 % (0.2-1.2); Eosinophils Absolute Auto 0.1 K/mm3 (0-0.3); Eosinophils Percent Auto 0.5 % (0-4.4); Hematocrit 29.7 % (42.0-52.0); Hemoglobin 9.7 g/dL (14.0-18.0); Immature Granulocyte Absolute 0.19 K/mm3 (0.00-0.031); Immature Granulocyte Percent A 0.9 % (0-0.5); Lymphocytes Absolute Auto 3.96 K/mm3 (0.9-3.2); Lymphocytes Percent Auto 18.3 % (18.3-44.2); Mean Corpuscular HGB Conc 32.7 g/dl (32-36); Mean Corpuscular Hemoglobin 29.1 pg (26-34); Mean Corpuscular Volume 89.2 fl (80-100); Mean Platelet Volume 8.9 fl (7.4-10.4); Monocytes Absolute Auto 1.5 K/mm3 (0.1-0.6); Neutrophils Absolute Auto 15.7 K/mm3 (1.3-6.7); Neutrophils Percent Auto 72.8 % (45.5-73.1); Platelet Count Result 384 k/mm3 (150-375); Red Blood Count 3.33 M/mm3 (4.6-6.20); Red Cell Distribution Width 13.5 % (11.5-14.5); White Blood Count 21.6 K/mm3 (4.5-10.0)
[2022-03-03 09:05] VITALS: O2SAT 100
[2022-03-03] MEDS: HYDROcodone/acetaminophen (*CRX) 5-325 MG TABLET 1 TAB PO (10:49)
[2022-03-03] MEDS: FAMOTIDINE 20 MG TABLET PO ×2 (11:51→21:16)
[2022-03-03] MEDS: VERAPAMIL HCL ER 240 MG TABLET.ER PO ×2 (11:52→21:16)
[2022-03-03 12:14] LABS: Hematocrit 26.7 % (42.0-52.0); Hemoglobin 8.8 g/dL (14.0-18.0)
[2022-03-03 13:53] VITALS: BP 109/62; PULSE 88; RESP 19; TEMP 36.9; O2SAT 100
--- NOTE | 2022-03-03 16:01 | PM.CNGS ---
Assessment and Plan Assessment and plan (1) Hematoma: Code(s): T14.8XXA - Other injury of unspecified body region, initial encounter Status: Acute Assessment and Plan: large left posterior thigh hematoma, occupying the space of previous MRSA abscess. This is a complication of his anticoagulation for pulmonary embolism. This will need to be evacuated or another abscess will surely form. I discussed this with him. We will return to surgery tomorrow afternoon and proceed with evacuation of hematoma. He may require placement of drains, enlargement of any or all of the counter incisions he currently has, chronic wound therapy or wound VAC therapy, prolonged recovery. I discussed this with him. He understands and agrees to go ahead. 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 Since patient has had a complication of his anticoagulation, I will repeat his CTA of the chest today. His venous Dopplers were negative for DVT. If this CTA does not show pulmonary emboli, I would be in favor of not anticoagulating him from here. (3) Abscess of left thigh: Code(s): L02.416 - Cutaneous abscess of left lower limb Status: Acute Assessment and Plan: Status post incision and drainage 02/21/2022. (4) MRSA (methicillin resistant Staphylococcus aureus) infection: Code(s): A49.02 - Methicillin resistant Staphylococcus aureus infection, unspecified site Status: Acute Assessment and Plan: Abscess cultures showed MRSA (5) Pulmonary embolism: Code(s): I26.99 - Other pulmonary embolism without acute cor pulmonale Status: Acute Assessment and Plan: based on a CTA from 02/19 that was compromised from motion artifact. Will repeat another CTA today. History of Present Illness Consult details Consult date: 03/03/22 Reason for consult: other ( Bleeding, hematoma left posterior thigh) Requesting physician: Tone Ferguson MD Narrative: patient is a 51-year-old man who is well known to me. On Labor Day weekend at the beginning of February, he developed insect bite on the back of his left thigh. This developed swelling and pain. It got worse and eventually he came to the emergency room on 02/19/2022. On presentation to the ER he not only was having pain and swelling in his left thigh but also left chest pain. CTA of the chest was done in the emergency room and was limited by motion artifact. It was read as possible subsegmental pulmonary emboli in the left upper and left lower lobes. Patient also was noted to have cellulitis in the left thigh by CT scan. He was admitted and anticoagulated for pulmonary embolism. His left thigh progressed and by ultrasound as well as examination, he had a left thigh abscess on 02/20/2022. He went to surgery on 02/21 and a very deep abscess that occupied most of the posterior thigh even progressing between the biceps femoris muscle was found and drained. He has had 3 counter incisions and two setons to facilitate drainage. Cultures grew MRSA sensitive to clindamycin, Bactrim, and tetracycline. He was treated with IV antibiotics. About 3 days after the abscess drainage his Eliquis was restarted. He was discharged on 02/26/2022 on 5 days of Bactrim as well as the Eliquis 10 mg b.i.d. He developed bleeding from 1 of the counter incisions yesterday. This persisted and pressure was held on the site. After that, he developed swelling and severe pain in the back of his thigh. He came back to the emergency room last night. CT scan showed a large posterior thigh hematoma with a site of active extravasation. Evaluation in the emergency room did not show active bleeding. He did have a leukocytosis and anemia. He has not required transfusion. He did take his Eliqui
--- NOTE | 2022-03-03 16:29 | PM.IMHP ---
H&P: HPI History of Present Illness Date/Time: 03/03/22 16:29 Chief Complaint: Left lower extremity pain. Narrative: ED-HPI This is a 51-year-old male presents to ED with left lower extremity pain.? Patient states that he had a large I and D performed in the back of his left leg at this hospital.? After that he was discharged on antibiotics that cover MRSA.? ? During his admission he was also diagnosed with a pulmonary embolism and placed on Eliquis.? He has been doing well at home over the last several days he has had increased pain and bleeding from his left leg.? He also has some new pain in his left hip and left groin.? He denies fever, chills, nausea vomiting or diarrhea.? He has been taking his medication as directed.? He has taken [place] at home with no relief. Patient is known to me as I had discharge the patient last after being treated for PE and complicated left posterior thigh abscess after I and D and was discharged on 02/26, today patient present with worsening pain in the left leg and radiologist called to inform that patient has bleeding hematoma on left and patient is on Eliquis for PE, Eliquis is hold for now as patient is seen by Dr. Rea general surgeon and plan is to explore the abscess tomorrow, and will resume Eliquis, will resume Eliquis after surgey tomorrow, patient was found to have MRSA on his left leg wound was discharged on Bactrim now hold and being treated with vancomycin, will continue to monitor and further recommendation to follow. patient is admitted inpatient with left lower extremity abscess, bleeding on anticoagulation, with history of pulmonary emboli Review of Systems Review of Systems: All systems reviewed & are unremarkable except as noted in HPI and below ( HPI and those items noted below) [facility] Past Medical History Medical History (Updated 03/03/22 @ 16:26 by Maciej Rea MD) Anxiety Borderline hyperlipidemia Cluster headache Pulmonary embolism Surgical History Surgical History H/O hernia repair S/P orchiectomy Family History Family History Father Lung cancer Sibling Lung cancer Social History Social History Social History: The patient continues to smoke 1 pack a cigarettes a day. He lives with his . He has 1 biologic child and has 1 step child. He works for [employer] He denies any alcohol or any other illicit drugs. Code status full code Smoking packs per day: 1 Smoking cigarettes per day: 20.0 Years smoked: 35 Smoking pack-years: 35.00 Smoking status: Former smoker Tobacco type: cigarettes Second hand tobacco smoke exposure: Yes Smoking end date: 02/19/22 Alcohol intake: never Substance use: never Substance use type: marijuana Gender identity (if verbalized by the patient): Male Sexual Orientation (if Verbalized by the Patient): Straight or Heterosexual Spiritual care concerns: No Meds Home Medications and Allergies Home Medications Medication Instructions Recorded Confirmed Type alprazolam 1 mg tablet 1 mg PO DAILY 02/19/22 03/03/22 History desvenlafaxine succinate 50 mg 50 mg PO DAILY 02/19/22 03/03/22 History tablet,extended release 24 hr dihydroergotamine (Trudhesa) 0.725 mg intranasal PRN PRN 02/19/22 03/03/22 History headaches melatonin 10 mg tablet 20 mg PO HS PRN Insomnia 02/19/22 03/03/22 History rosuvastatin 5 mg tablet 5 mg PO DAILY 02/19/22 03/03/22 History verapamil 240 mg tablet,extended 240 mg PO BID 02/19/22 03/03/22 History release hydrocodone 5 mg-acetaminophen 325 1 - 2 tablet PO Q6H PRN pain #20 02/25/22 03/03/22 Rx mg tablet tabs apixaban 5 mg tablet (Eliquis) 5 mg PO Q12HR #60 tabs 02/26/22 03/03/22 Rx famotidine 20 mg tablet 20 mg PO Q12HR #60 tabs 02/26/22 03/03/22 Rx sulfamethoxazole 80
[2022-03-03] MEDS: ALPRAZolam (*CRX) 0.5 MG TABLET 1 MG PO (21:15)
[2022-03-03] MEDS: ROSUVASTATIN 5 MG TABLET PO (21:16)
[2022-03-03 21:50] VITALS: BP 129/70; PULSE 85; RESP 19; TEMP 36.6; O2SAT 100
[2022-03-04] VITALS (12 sets, daily range): BP systolic 102–146; BP diastolic 56–84; PULSE 75–98; RESP 15–20; TEMP 36.4–36.8; O2SAT 97–100
[2022-03-04] MEDS: SODIUM CHLORIDE 0.9% IV 1,000 ML 150 ML IV CONT ×2 (01:02→09:51)
[2022-03-04] MEDS: HYDROmorphone HCL INJ (*CRX) 1 MG/ML SYR IV PUSH ×5 (01:09→22:05)
[2022-03-04 06:47] LABS: Basophils Absolute Auto 0.1 K/mm3 (0.0-0.1); Basophils Percent Auto 0.6 % (0.2-1.2); Eosinophils Absolute Auto 0.3 K/mm3 (0-0.3); Eosinophils Percent Auto 2.2 % (0-4.4); Hematocrit 21.9 % (42.0-52.0); Immature Granulocyte Absolute 0.08 K/mm3 (0.00-0.031); Immature Granulocyte Percent A 0.6 % (0-0.5); Lymphocytes Absolute Auto 3.34 K/mm3 (0.9-3.2); Lymphocytes Percent Auto 23.9 % (18.3-44.2); Mean Corpuscular Hemoglobin 28.9 pg (26-34); Mean Corpuscular Volume 90.5 fl (80-100); Mean Platelet Volume 9.6 fl (7.4-10.4); Monocytes Absolute Auto 1.4 K/mm3 (0.1-0.6); Monocytes Percent Auto 9.6 % (2.6-8.5); Neutrophils Absolute Auto 8.8 K/mm3 (1.3-6.7); Neutrophils Percent Auto 63.1 % (45.5-73.1); Platelet Count Result 294 k/mm3 (150-375); Red Blood Count 2.42 M/mm3 (4.6-6.20); Red Cell Distribution Width 13.4 % (11.5-14.5)
[2022-03-04 06:58] LABS: INR 1.3; Prothrombin Time 15.3 Seconds (11.1-14.7)
[2022-03-04 07:11] LABS: Anion Gap 5 mmol/L (8-16); Blood Urea Nitrogen 8 mg/dL (9-20); Calcium 8.1 mg/dL (8.4-10.2); Carbon Dioxide 27 mmol/L (22-30); Chloride 100 mmol/L (98-107); Estimated CRCL calculation 117 ml/min; Estimated Glomerular Filt Rate > 60; Glucose 106 mg/dL (65-110); Magnesium 1.9 mg/dL (1.6-2.3); Sodium 132 mmol/L (137-145)
[2022-03-04] MEDS: HYDROmorphone HCL INJ (*CRX) 1 MG/ML SYR 0.5 MG IV PUSH (12:00)
--- NOTE | 2022-03-04 12:08 | PM.IMPN ---
Progress Note: A&P Assessment and Plan (1) Pulmonary embolism: Code(s): I26.99 - Other pulmonary embolism without acute cor pulmonale Status: Acute Assessment and Plan: Eliquis is hold for now as patient is seen by Dr. Rea general surgeon and plan is to explore the hematoma. Eliquis to resume after surgery. (2) MRSA (methicillin resistant Staphylococcus aureus) infection: Code(s): A49.02 - Methicillin resistant Staphylococcus aureus infection, unspecified site Status: Acute Assessment and Plan: Pt is on iv vancomycin for MRSA infection (3) Hematoma: Code(s): T14.8XXA - Other injury of unspecified body region, initial encounter Status: Acute Assessment and Plan: Patient is seen by surgery service pt will go down today for exploration of the hematoma and evacuation the clots, Plan NO DVT Proph due to bleeding hematoma Subjective Date/time seen: 03/04/22 12:08 51-year-old male presents to ED with left lower extremity pain Pt had a large I and D performed in the back of his left leg at this hospital.? After that he was discharged on antibiotics that cover MRSA. Pt found to have a PE and was placed on eliquis last admission Pt having alot of thigh pain due to the hematoma. Pt due to go down today for evacuation of hematoma and possible placement of drains. Review of Systems Review of Systems: Severe L thigh pain Exam Narrative: Patient in pain HEENT: eyes are clear and none icteric LUNGS: normal respiratory effort ABD: not distended EXT left leg with MICHELA wrap SKIN: nonjaundiced Neuro: grossly intact. Objective Data Vital Signs Vital Signs: Vital Signs - 24 hr 03/03/22 13:53 03/03/22 21:50 03/03/22 20:00 Temperature 36.9 C 36.6 C Pulse Rate 88 85 Respiratory Rate 19 19 Blood Pressure 109/62 129/70 Pulse Oximetry 100 100 Oxygen Delivery Room Air 03/04/22 05:37 03/04/22 10:00 03/04/22 08:00 Temperature 36.6 C Pulse Rate 75 Respiratory Rate 18 Blood Pressure 102/56 L 115/60 Pulse Oximetry 99 Oxygen Delivery Room Air Intake/Output Intake/Output: Intake & Output 03/01/22 03/02/22 03/03/22 03/04/22 23:59 23:59 23:59 23:59 Intake Total 4120 1000 Output Total 250 3150 Balance 3870 -2150 Meds/Results Medications: Active Medications Generic Name Dose Route Start Last Admin Trade Name Freq PRN Reason Stop Dose Admin Alprazolam 1 mg 03/03/22 21:00 03/03/22 21:15 Alprazolam (*Crx) 0.5 Mg Tablet PO 1 mg HS FLAVIA Administration Desvenlafaxine Succinate 50 mg 03/04/22 09:00 Desvenlafaxine Succinate 50 Mg Tab.Er.24h PO 04/03/22 08:59 DAILY FLAVIA Famotidine 20 mg 03/03/22 10:53 03/03/22 21:16 Famotidine 20 Mg Tablet PO 20 mg Q12HR FLAVIA Administration Hydromorphone HCl 0.5 mg 03/03/22 14:31 Hydromorphone Hcl Inj (*Crx) 1 Mg/Ml Syr IV PUSH Q4H PRN Pain Rated 4-6 Hydromorphone HCl 1 mg 03/03/22 14:31 03/04/22 09:55 Hydromorphone Hcl Inj (*Crx) 1 Mg/Ml Syr IV PUSH 1 mg Q4H PRN Administration Pain Rated 7-10 Vancomycin HCl 1,500 mg in 500 mls @ 333.333 mls/hr 03/03/22 03:00 03/04/22 03:28 Vancomycin 1,500 Mg/D5w 500 Ml IVPB 333.33 mls/hr Q12H FLAVIA Administration Sodium Chloride 1,000 mls @ 150 mls/hr 03/03/22 07:45 03/04/22 09:51 Normal Saline Iv IV CONT 150 mls/hr .Q6H40M FLAVIA Administration Acetaminophen 1,000 mg in 100 mls @ 400 mls/hr 03/04/22 11:34 Ofirmev 1,000 Mg Ivpb IVPB 03/05/22 11:33 Q6H PRN Pain Rated 4-6 Melatonin 20 mg 03/03/22 10:02 Melatonin 5 Mg Tablet PO HS PRN Insomnia Miscellaneous Information 1 each 03/03/22 00:01 Desvenlafaxine Nonformulary. Can Patient Use Home Supply? XX 04/02/22 00:00 CLARIFY FLAVIA Miscellaneous Information 1 each 03/03/22 00:01 Trudhesa Nonformulary. Can Patient Use Home Supply? XX 04/02/22 00:00 CLARIFY FLAVIA Noel
--- NOTE | 2022-03-04 13:09 | WPDANESEPPF ---
Anes - Initial Pre Proc Eval Procedure: Operation Date: 03/04/22 16:00 Proposed Procedures p Incision and Drainage Hematoma Left Thigh - Maciej Rea MD Date/Time: 03/04/22 13:09 Surgeon: Emile Molina MD Pre Op Diagnosis: hematoma Patient Data Age: 51 Gender: M Height: 1.93 m Weight: 93 kg Last Vital Signs Temp 36.6 C 03/04/22 05:37 Pulse 75 03/04/22 05:37 Resp 18 03/04/22 05:37 BP 115/60 03/04/22 10:00 Pulse Ox 99 03/04/22 05:37 O2 Del Method Room Air 03/04/22 08:00 Allergies Allergy/AdvReac Type Severity Reaction Status Date / Time cefaclor [From Ceclor] AdvReac Diarrhea Verified 03/02/22 20:54 cefuroxime [From Ceftin] AdvReac Diarrhea Verified 03/02/22 20:54 Home Medications Medication Instructions Recorded Confirmed Type alprazolam 1 mg tablet 1 mg PO DAILY 02/19/22 03/03/22 History desvenlafaxine succinate 50 mg 50 mg PO DAILY 02/19/22 03/03/22 History tablet,extended release 24 hr dihydroergotamine (Trudhesa) 0.725 mg intranasal PRN PRN 02/19/22 03/03/22 History headaches melatonin 10 mg tablet 20 mg PO HS PRN Insomnia 02/19/22 03/03/22 History rosuvastatin 5 mg tablet 5 mg PO DAILY 02/19/22 03/03/22 History verapamil 240 mg tablet,extended 240 mg PO BID 02/19/22 03/03/22 History release hydrocodone 5 mg-acetaminophen 325 1 - 2 tablet PO Q6H PRN pain #20 02/25/22 03/03/22 Rx mg tablet tabs apixaban 5 mg tablet (Eliquis) 5 mg PO Q12HR #60 tabs 02/26/22 03/03/22 Rx famotidine 20 mg tablet 20 mg PO Q12HR #60 tabs 02/26/22 03/03/22 Rx sulfamethoxazole 800 1 tablet PO Q12H #10 tabs 02/26/22 03/03/22 Rx mg-trimethoprim 160 mg tablet (Bactrim DS) Laboratory Tests 03/03/22 03/04/22 03/04/22 11:46 05:33 05:33 WBC 14.0 K/mm3 H K/mm3 (4.5-10.0) RBC 2.42 M/mm3 L M/mm3 (4.6-6.20) Hgb 7.0 g/dL L g/dL (14.0-18.0) Hct 21.9 % L % (42.0-52.0) MCV 90.5 fl fl (80-100) MCH 28.9 pg pg (26-34) MCHC 32.0 g/dl g/dl (32-36) RDW 13.4 % % (11.5-14.5) Plt Count 294 k/mm3 k/mm3 (150-375) MPV 9.6 fl fl (7.4-10.4) Immature Gran % (Auto) 0.6 % H % (0-0.5) Neut % (Auto) 63.1 % % (45.5-73.1) Lymph % (Auto) 23.9 % % (18.3-44.2) [place] % (Auto) 9.6 % H % (2.6-8.5) Eos % (Auto) 2.2 % % (0-4.4) Baso % (Auto) 0.6 % % (0.2-1.2) Lymph # (Auto) 3.34 K/mm3 H K/mm3 (0.9-3.2) [place] # (Auto) 1.4 K/mm3 H K/mm3 (0.1-0.6) Eos # (Auto) 0.3 K/mm3 K/mm3 (0-0.3) Baso # (Auto) 0.1 K/mm3 K/mm3 (0.0-0.1) Abs Immat Gran (auto) 0.08 K/mm3 H K/mm3 (0.00-0.031) Absolute Neuts (auto) 8.8 K/mm3 H K/mm3 (1.3-6.7) Absolute Nucleated RBC 0.0 K/mm3 K/mm3 (0.0-0.012) Nucleated RBC % 0.0 % % (0.0-0.2) PT 15.3 Seconds H Seconds (11.1-14.7) INR 1.3 APTT 38.0 SECONDS H SECONDS (22.3-36.8) Sodium Potassium Chloride Carbon Dioxide Anion Gap BUN Creatinine Estim Creat Clear Calc Estimated GFR Glucose Calcium Magnesium Blood Type A Positive Antibody Screen Negative 03/04/22 05:33 WBC RBC Hgb Hct MCV MCH MCHC RDW Plt Count MPV Immature Gran % (Auto) Neut % (Auto) Lymph % (Auto) [place] % (Auto) Eos % (Auto) Baso % (Auto) Lymph # (Auto) [place] # (Auto) Eos # (Auto) Baso # (Auto) Abs Immat Gran (auto) Absolute Neuts (auto) Absolute Nucleated RBC Nucleated RBC % PT INR APTT Sodium 132 mmol/L L mmol/L (137-145) Potassium 4.0 mmol/L mmol/L
[2022-03-04] MEDS: ONDANSETRON INJ 4 MG/2 ML VIAL IV PUSH (14:02)
[2022-03-04 14:25] LABS: Vancomycin Trough 10.6 ug/mL (10.0-20.0)
--- NOTE | 2022-03-04 15:20 | PC.NURSE ---
pt to surgery via bed
[2022-03-04] MEDS: LACTATED RINGERS 1,000 ML 30 ML IV CONT ×2 (15:56→19:39)
[2022-03-04] MEDS: SCOPOLAMINE 1.5 MG PATCH TRANSDERM (16:06)
[2022-03-04] MEDS: fentaNYL CITRATE INJ (*CRX) 100 MCG/2 ML VIAL 50 MCG IV PUSH (16:12)
[2022-03-04] MEDS: fentaNYL CITRATE INJ (*CRX) 100 MCG/2 ML VIAL 25 MCG IV PUSH ×7 (19:56→20:36)
--- NOTE | 2022-03-04 20:02 | P.OP_ITS ---
Procedure Note - Detailed Date of Procedure 03/04/22 Pre-op Diagnosis Intramuscular bleeding left leg with hematoma Post-op Diagnosis Same Procedure Performed Control of intramuscular bleeding left leg with evacuation of hematoma, packing left leg wound for hemostasis. Surgeon Maciej Rea MD Elevator Starter Myles summers [facility] Anesthesia General Indications Patient developed a very large MRSA abscess in the posterior thigh. The abscess extended to the intramuscular space. He also has a pulmonary embolism. The abscess was drained and the infection was resolving. He was discharged on Eliquis and developed bleeding from the wound and subsequently a severely painful swollen upper leg. He came to the emergency room and was found to have a very large deep hematoma extending throughout the deep posterior thigh coincident with the extent of the abscess cavity. The CT also showed evidence of active bleeding. The patient's continued to have pain and swelling and a large hematoma of the posterior thigh with decreasing hematocrit. He is taken to surgery now for control of bleeding and evacuation of the hematoma. Findings There was an extremely large hematoma in the posterior thigh. Would estimate it was probably 1000 cc altogether. This was evacuated and irrigated but persistent oozing continued. No definite arterial bleeder could be found. The entire posterior thigh space was packed to control hemorrhage. Plan is to bring patient back to surgery for dressing change day after tomorrow. Description of Procedure Patient was taken to surgery and induced into general anesthesia. He was placed in right lateral decubitus position and the left posterior thigh was exposed. Prep and drape was carried out. I initially advanced the suction into the counter incisions. A very large hematoma was encountered. We evacuated as much of this as possible through the existing incisions. There was an extremely large component of this that was very proximal. It appeared that the hematoma may have actually enlarge the initial space developed by the abscess. I had to enlarge both cephalad and caudad the counter incision in the mid posterior thigh. This greatly facilitated evacuation of the proximal hematoma. I also enlarge the distal counter incision as well. From there we were able to evacuate the hematoma entirely. We thoroughly irrigated the entire cavity. The wounds were cauterized to achieve hemostasis. Some muscular bleeders were noted and these were cauterized and controlled as well. I packed the wound with laparotomy sponges initially. This seemed to provide fair hemostasis but there was still a lot of predominantly sanguinous drainage. I felt that without packing the entire area, rebleeding would occur. I then placed 3 different Kerlix rolls into the wound to pack the entire posterior thigh space. I then used fluffs and packed the mid and distal wounds thoroughly. We then used fluffs to dress each of the wounds and placed large ABDs. The leg was wrapped with 6 in Pavan wrap. The patient was returned to a supine position, awakened and taken to recovery in good condition. Sponge and needle counts were correct x2. Plan is to leave dressings dry and intact giving the Eliquis additional time to lose its affect. We will need to return to the operating room for dressing change in approximately 48 hours. Estimated Blood Loss -100.0 Urine Output 800 Drains No Packing Yes (Kerlix rolls and fluffs) Pathology None sent Complications No immediate complications Condition Stable Disposition PACU [facility] Billing Surgery - Charge Forward: Surgery Billing (Control posterior thigh hemorrhage, evacuate yonathan
[2022-03-04] MEDS: FAMOTIDINE 20 MG TABLET PO (21:49)
[2022-03-04] MEDS: VERAPAMIL HCL ER 240 MG TABLET.ER PO (21:49)
[2022-03-04] MEDS: ALPRAZolam (*CRX) 0.5 MG TABLET 1 MG PO (21:49)
[2022-03-04] MEDS: ROSUVASTATIN 5 MG TABLET PO (21:50)
[2022-03-04] MEDS: LACTATED RINGERS 1,000 ML 80 ML IV CONT (21:50)
[2022-03-04] MEDS: MELATONIN 5 MG TABLET 20 MG PO (21:55)
[2022-03-04] MEDS: HYDROcodone/acetaminophen (*CRX) 10-325 MG TABLET 1 TAB PO (23:05)
[2022-03-05] VITALS (13 sets, daily range): BP systolic 98–128; BP diastolic 50–67; PULSE 76–90; RESP 17–20; TEMP 36.6–37.1; O2SAT 94–100
[2022-03-05] MEDS: HYDROmorphone HCL INJ (*CRX) 1 MG/ML SYR IV PUSH ×4 (05:15→17:54)
[2022-03-05 06:36] LABS: Mean Corpuscular HGB Conc 32.4 g/dl (32-36); Mean Corpuscular Hemoglobin 29.6 pg (26-34); Mean Corpuscular Volume 91.3 fl (80-100); Mean Platelet Volume 9.8 fl (7.4-10.4); Platelet Count Result 302 k/mm3 (150-375); Red Blood Count 2.06 M/mm3 (4.6-6.20); Red Cell Distribution Width 13.2 % (11.5-14.5); White Blood Count 16.6 K/mm3 (4.5-10.0)
[2022-03-05 06:42] LABS: Hematocrit 18.8 % (42.0-52.0); Hemoglobin 6.1 g/dL (14.0-18.0)
[2022-03-05 06:54] LABS: Anion Gap 5 mmol/L (8-16); Blood Urea Nitrogen 6 mg/dL (9-20); Calcium 7.6 mg/dL (8.4-10.2); Carbon Dioxide 26 mmol/L (22-30); Chloride 97 mmol/L (98-107); Estimated CRCL calculation 117 ml/min; Estimated Glomerular Filt Rate > 60; Glucose 109 mg/dL (65-110); Potassium 3.8 mmol/L (3.4-5.0); Sodium 128 mmol/L (137-145)
[2022-03-05] MEDS: FAMOTIDINE 20 MG TABLET PO ×2 (08:27→20:40)
[2022-03-05] MEDS: HYDROcodone/acetaminophen (*CRX) 10-325 MG TABLET 1 TAB PO ×2 (08:27→20:38)
[2022-03-05] MEDS: ENOXAPARIN 40 MG/0.4 ML SYRINGE SUB-Q (08:27)
[2022-03-05] MEDS: VERAPAMIL HCL ER 240 MG TABLET.ER PO ×2 (08:27→20:40)
[2022-03-05] MEDS: DESVENLAFAXINE SUCCINATE 50 MG TAB.ER.24H PO (08:28)
--- NOTE | 2022-03-05 13:30 | PM.PNGS ---
Progress Note: A&P Assessment and Plan (1) Hematoma: Code(s): T14.8XXA - Other injury of unspecified body region, initial encounter Status: Acute Assessment and Plan: Post-op day 1 from control of intramuscular bleeding of left leg with evacuation of hematoma and packing for hemostasis. Dressing saturated overnight. Nursing has reinforced today. Hgb was down to 6.1 this morning and he has 2 units of PRBCs ordered. Continue to monitor H/H and dressing for signs of further bleeding. Will leave packing in for today and plan to take the patient back to the OR tomorrow for a dressing change. (2) Chronic anticoagulation: Code(s): Z79.01 - senior care (current) use of anticoagulants Status: Acute Assessment and Plan: Eliquis on hold. (3) Abscess of left thigh: Code(s): L02.416 - Cutaneous abscess of left lower limb Status: Acute Assessment and Plan: Status post incision and drainage 02/21/2022. (4) MRSA (methicillin resistant Staphylococcus aureus) infection: Code(s): A49.02 - Methicillin resistant Staphylococcus aureus infection, unspecified site Status: Acute Assessment and Plan: Abscess cultures showed MRSA (5) Pulmonary embolism: Code(s): I26.99 - Other pulmonary embolism without acute cor pulmonale Status: Acute Assessment and Plan: CTA repeated and showed minimal residual embolism in the left lower lobe. Plan I have discussed the patient's case and plan of care with Dr. Rea. Subjective Subjective Date/Time Seen: 03/05/22 13:00 Post Op day: 1 (Control of intramuscular bleeding left leg with evacuation of hematoma, packing left leg wound for hemostasis) Patient reports: no new complaints, still having pain, tolerating a regular diet, voiding w/o difficulty, flatus, no bowel movement and afebrile Interval history: Patient seen and examined. Reports generalized malaise and fatigue. Still having pain in his left leg that feels about the same as yesterday. Reports some numbness of his left toes, but still has some sensation. Per nursing, overnight his left leg dressing became saturated with bloody drainage and soaked through the albina wrap, his gown, and onto the linens in his bed. This morning, she spoke with Dr. Rea and reinforced the dressing with ABDs and new albina wrap. No more saturation through the dressing at this point. He is getting his first unit of blood now. Review of Systems Review of Systems: All systems reviewed & are unremarkable except as noted in HPI and below Exam Const: General: no acute distress and awake Orientation/consciousness: patient oriented x3 Extrem: General: no calf tenderness and edema left (2-3+) Left lower extremity: normal capillary refill and foot Details: normal capillary refill and vascular exam (slightly decreased sensation of the toes) Details: dorsalis pedis pulse present and posterior tibial pulse present Other: Left thigh dressing dry and intact Psych: Affect: normal affect Thought process: Normal thought process present Objective Data Vital Signs Vital Signs: Vital Signs - 24 hr 03/04/22 15:42 03/04/22 19:39 03/04/22 19:50 Temperature 98.3 F 98.0 F Pulse Rate 80 98 90 Respiratory Rate 16 20 20 Blood Pressure 118/61 143/84 H 146/75 H Pulse Oximetry 99 100 100 Oxygen Delivery Room Air Simple Face Mask Simple Face Mask Oxygen Flow Rate 8 8 03/04/22 20:05 03/04/22 20:15 03/04/22 20:25 Temperature 97.9 F Pulse Rate 77 84 84 Respiratory Rate 20 15 15 Blood Pressure 142/83 H 137/77 138/78 Pulse Oximetry 100 100 97 Oxygen Delivery Room Air Room Air Room Air Oxygen Flow Rate 03/04/22 20:30 03/04/22 20:40 03/04/22 22:01 Temperature 97.6 F Pulse Rate 81 87 97 Respiratory Rate 18 20 18 Blood Pressure 138/79 131/74 120/69 Pulse Oximetry 97 97 100 Oxygen Delivery Room Air Room Air Oxygen Flow Rate 03/05/22 06:05 03/05/22 08:25 03/05/22 11:05 [facility]
[2022-03-05] MEDS: LACTATED RINGERS 1,000 ML 80 ML IV CONT ×2 (14:21→20:40)
[2022-03-05] MEDS: SODIUM CHLORIDE 0.9% IV 250 ML 30 ML IV CONT (14:22)
--- NOTE | 2022-03-05 17:13 | PM.IMPN ---
Progress Note: A&P Assessment and Plan (1) Pulmonary embolism: Code(s): I26.99 - Other pulmonary embolism without acute cor pulmonale Status: Acute Assessment and Plan: Eliquis is hold for now due to hematoma development Eliquis to resume after surgery. (2) MRSA (methicillin resistant Staphylococcus aureus) infection: Code(s): A49.02 - Methicillin resistant Staphylococcus aureus infection, unspecified site Status: Acute Assessment and Plan: Pt is on iv vancomycin for MRSA infection (3) Hematoma: Code(s): T14.8XXA - Other injury of unspecified body region, initial encounter Status: Acute Assessment and Plan: Patient is seen by surgery service status post evacuation of hematoma 03/04/2022 Had intramuscular bleeding of left leg Continues to ooze and plan to take him back to OR again tomorrow Plan acute blood loss anemia continues to be lower 6.1 planned PRBC transfusion. Transfuse as needed to keep hemoglobin more than 7 DVT prophylaxis placed on Lovenox by General surgery this a.m. Leukocytosis worsened to 26,000 could be reactive on IV vancomycin for MRSA infection. Blood cultures x2 negative Subjective Date/time seen: 03/05/22 17:13 Interval history: continues to have lower extremity pain in the left side. Had MRSA abscess left thigh. Also had PE was placed on Eliquis followed by hematoma development status post hematoma evacuation 03/04/2022 Continues to have lot of pain in the thigh. Remains afebrile discussed with the patient and the family Review of Systems Review of Systems: All systems reviewed & are unremarkable except as noted in HPI and below ( HPI and those items noted below) Exam Narrative: Patient alert and oriented x3 not in acute distress HEENT: eyes are clear and none icteric LUNGS: normal respiratory effort clear to auscultation bilaterally ABD: not distended soft nontender EXT left thigh with MICHELA wrap , left leg with pitting edema SKIN: nonjaundiced Neuro: grossly intact. alert and oriented x3 no focal motor deficits Objective Data Vital Signs Vital Signs: Vital Signs - 24 hr 03/04/22 19:39 03/04/22 19:50 03/04/22 20:05 Temperature 98.0 F Pulse Rate 98 90 77 Respiratory Rate 20 20 20 Blood Pressure 143/84 H 146/75 H 142/83 H Pulse Oximetry 100 100 100 Oxygen Delivery Simple Face Mask Simple Face Mask Room Air Oxygen Flow Rate 8 8 03/04/22 20:15 03/04/22 20:25 03/04/22 20:30 Temperature 97.9 F Pulse Rate 84 84 81 Respiratory Rate 15 15 18 Blood Pressure 137/77 138/78 138/79 Pulse Oximetry 100 97 97 Oxygen Delivery Room Air Room Air Room Air Oxygen Flow Rate 03/04/22 20:40 03/04/22 22:01 03/05/22 06:05 Temperature 97.6 F 98.0 F Pulse Rate 87 97 89 Respiratory Rate 20 18 17 Blood Pressure 131/74 120/69 108/54 L Pulse Oximetry 97 100 94 Oxygen Delivery Room Air Oxygen Flow Rate 03/05/22 08:25 03/05/22 11:05 03/05/22 11:23 Temperature 98.8 F 98.4 F Pulse Rate 84 76 81 Respiratory Rate 20 18 Blood Pressure 120/59 L 109/62 103/52 L Pulse Oximetry 99 99 Oxygen Delivery Oxygen Flow Rate 03/05/22 12:23 03/05/22 13:23 03/05/22 14:20 Temperature 98.2 F 98.3 F 98.0 F Pulse Rate 79 77 76 Respiratory Rate 19 20 18 Blood Pressure 98/67 L 103/59 L 110/53 L Pulse Oximetry 100 100 100 Oxygen Delivery Oxygen Flow Rate Intake/Output Intake/Output: Intake & Output 03/02/22 03/03/22 03/04/22 03/05/22 23:59 23:59 23:59 23:59 Intake Total 4120 2250 4950 Output Total 250 6350 3550 Balance 3870 -4100 1400 Meds/Results Medications: Active Medications Generic Name Dose Route Start Last Admin Trade Name Freq PRN Reason Stop Dose Admin Acetaminophen 500 mg 03/04/22 20:42 Acetaminophen 500 Mg Tablet PO Q6H PRN Mild Pain (1-3) or Fever Hydrocodone Bitart/Acetaminophen 1 tab 03/04/22 20:42 Hydrocodone/Acetaminophen (*Crx) 5-325 Mg T
[2022-03-05] MEDS: SODIUM CHLORIDE 0.9% IV 250 ML 30 ML (18:20)
[2022-03-05] MEDS: ALPRAZolam (*CRX) 0.5 MG TABLET 1 MG PO (20:39)
[2022-03-05] MEDS: ROSUVASTATIN 5 MG TABLET PO (20:40)
[2022-03-05] MEDS: MELATONIN 5 MG TABLET 20 MG PO (20:41)
[2022-03-05 22:33] LABS: Hematocrit 21.7 % (42.0-52.0)
[2022-03-05 23:01] LABS: Hemoglobin 7.1 g/dL (14.0-18.0)
[2022-03-06] VITALS (11 sets, daily range): BP systolic 105–144; BP diastolic 51–76; PULSE 73–87; RESP 16–22; TEMP 36.6–37.8; O2SAT 96–100
[2022-03-06] MEDS: HYDROmorphone HCL INJ (*CRX) 1 MG/ML SYR IV PUSH ×4 (03:07→20:05)
[2022-03-06 07:16] LABS: Basophils Absolute Auto 0.1 K/mm3 (0.0-0.1); Basophils Percent Auto 0.7 % (0.2-1.2); Eosinophils Absolute Auto 0.5 K/mm3 (0-0.3); Eosinophils Percent Auto 3.6 % (0-4.4); Hematocrit 23.2 % (42.0-52.0); Hemoglobin 7.5 g/dL (14.0-18.0); Immature Granulocyte Absolute 0.16 K/mm3 (0.00-0.031); Immature Granulocyte Percent A 1.3 % (0-0.5); Lymphocytes Absolute Auto 3.14 K/mm3 (0.9-3.2); Lymphocytes Percent Auto 24.9 % (18.3-44.2); Mean Corpuscular HGB Conc 32.3 g/dl (32-36); Mean Corpuscular Hemoglobin 29.3 pg (26-34); Mean Corpuscular Volume 90.6 fl (80-100); Mean Platelet Volume 9.7 fl (7.4-10.4); Monocytes Absolute Auto 1.3 K/mm3 (0.1-0.6); Monocytes Percent Auto 10.5 % (2.6-8.5); Neutrophils Absolute Auto 7.4 K/mm3 (1.3-6.7); Platelet Count Result 330 k/mm3 (150-375); Red Blood Count 2.56 M/mm3 (4.6-6.20); Red Cell Distribution Width 13.6 % (11.5-14.5); White Blood Count 12.6 K/mm3 (4.5-10.0)
[2022-03-06 07:35] LABS: Alanine Aminotransferase 14 U/L (6-50); Albumin Level 2.7 g/dL (3.5-5.1); Alkaline Phosphatase 47 U/L (38-126); Anion Gap 3 mmol/L (8-16); Aspartate Amino Transferase 17 U/L (17-59); Bilirubin,Total 0.6 mg/dL (0.2-1.3); Blood Urea Nitrogen 4 mg/dL (9-20); Calcium 7.8 mg/dL (8.4-10.2); Carbon Dioxide 30 mmol/L (22-30); Chloride 99 mmol/L (98-107); Estimated CRCL calculation 117 ml/min; Estimated Glomerular Filt Rate > 60; Glucose 102 mg/dL (65-110); Magnesium 1.8 mg/dL (1.6-2.3); Potassium 3.6 mmol/L (3.4-5.0); Sodium 132 mmol/L (137-145)
--- NOTE | 2022-03-06 07:49 | WPDANESEPPF ---
Anes - Initial Pre Proc Eval Procedure: Operation Date: 03/04/22 16:00 Proposed Procedures p Incision and Drainage Hematoma Left Thigh - Maciej Rea MD Operation Date: 03/06/22 09:30 Proposed Procedures p Left Posterior Thigh Dressing Change - Maciej Rea MD Date/Time: 03/06/22 07:49 Surgeon: Alin Norwood MD Pre Op Diagnosis: hematoma Patient Data Age: 51 Gender: M Height: 1.93 m Weight: 93 kg Last Vital Signs Temp 36.8 C 03/06/22 05:33 Pulse 87 03/06/22 05:33 Resp 17 03/06/22 05:33 BP 105/55 L 03/06/22 05:33 Pulse Ox 98 03/06/22 05:33 O2 Del Method Room Air 03/04/22 20:40 O2 Flow Rate 8 03/04/22 19:50 Allergies Allergy/AdvReac Type Severity Reaction Status Date / Time cefaclor [From Ceclor] AdvReac Diarrhea Verified 03/06/22 07:56 cefuroxime [From Ceftin] AdvReac Diarrhea Verified 03/06/22 07:56 Home Medications Medication Instructions Recorded Confirmed Type alprazolam 1 mg tablet 1 mg PO DAILY 02/19/22 03/06/22 History desvenlafaxine succinate 50 mg 50 mg PO DAILY 02/19/22 03/06/22 History tablet,extended release 24 hr dihydroergotamine (Trudhesa) 0.725 mg intranasal PRN PRN 02/19/22 03/06/22 History headaches melatonin 10 mg tablet 20 mg PO HS PRN Insomnia 02/19/22 03/06/22 History rosuvastatin 5 mg tablet 5 mg PO DAILY 02/19/22 03/06/22 History verapamil 240 mg tablet,extended 240 mg PO BID 02/19/22 03/06/22 History release hydrocodone 5 mg-acetaminophen 325 1 - 2 tablet PO Q6H PRN pain #20 02/25/22 03/06/22 Rx mg tablet tabs apixaban 5 mg tablet (Eliquis) 5 mg PO Q12HR #60 tabs 02/26/22 03/06/22 Rx famotidine 20 mg tablet 20 mg PO Q12HR #60 tabs 02/26/22 03/06/22 Rx sulfamethoxazole 800 1 tablet PO Q12H #10 tabs 02/26/22 03/06/22 Rx mg-trimethoprim 160 mg tablet (Bactrim DS) Laboratory Tests 03/03/22 03/05/22 03/06/22 11:46 22:20 06:42 WBC 12.6 K/mm3 H K/mm3 (4.5-10.0) RBC 2.56 M/mm3 L M/mm3 (4.6-6.20) Hgb 7.1 g/dL L g/dL 7.5 g/dL L g/dL (14.0-18.0) (14.0-18.0) Hct 21.7 % L % 23.2 % L % (42.0-52.0) (42.0-52.0) MCV 90.6 fl fl (80-100) MCH 29.3 pg pg (26-34) MCHC 32.3 g/dl g/dl (32-36) RDW 13.6 % % (11.5-14.5) Plt Count 330 k/mm3 k/mm3 (150-375) MPV 9.7 fl fl (7.4-10.4) Immature Gran % (Auto) 1.3 % H % (0-0.5) Neut % (Auto) 59.0 % % (45.5-73.1) Lymph % (Auto) 24.9 % % (18.3-44.2) [place] % (Auto) 10.5 % H % (2.6-8.5) Eos % (Auto) 3.6 % % (0-4.4) Baso % (Auto) 0.7 % % (0.2-1.2) Lymph # (Auto) 3.14 K/mm3 K/mm3 (0.9-3.2) [place] # (Auto) 1.3 K/mm3 H K/mm3 (0.1-0.6) Eos # (Auto) 0.5 K/mm3 H K/mm3 (0-0.3) Baso # (Auto) 0.1 K/mm3 K/mm3 (0.0-0.1) Abs Immat Gran (auto) 0.16 K/mm3 H K/mm3 (0.00-0.031) Absolute Neuts (auto) 7.4 K/mm3 H K/mm3 (1.3-6.7) Absolute Nucleated RBC 0.0 K/mm3 K/mm3 (0.0-0.012) Nucleated RBC % 0.0 % % (0.0-0.2) Sodium Potassium Chloride Carbon Dioxide Anion Gap BUN Creatinine Estim Creat Clear Calc Estimated GFR Glucose Calcium Magnesium Total Bilirubin AST ALT Alkaline Phosphatase Total Protein Albumin Blood Type A Positive Antibody Screen Negative Crossmatch See Detail 03/06/22 06:42 WBC RBC Hgb Hct MCV MCH MCHC RDW Plt Count MPV Immature Gran % (Auto) Neut % (Auto) Lymph % (Auto) [place] % (Auto) Eos % (Auto) Baso % (Auto) Lymph # (Auto) [place] # (Auto)
[2022-03-06] MEDS: fentaNYL CITRATE INJ (*CRX) 100 MCG/2 ML VIAL 50 MCG IV PUSH ×2 (08:41→09:00)
[2022-03-06] MEDS: LACTATED RINGERS 1,000 ML 30 ML IV CONT (08:42)
--- NOTE | 2022-03-06 09:22 | WPDHPUPDATE1 ---
History and Physical Update Update Date/Time: 03/06/22 09:22 History and Physical has been reviewed, including an updated exam of the patient. There are NO changes in the patient's condition. Risks, benefits, and alternatives have been discussed and questions answered. Patient agrees to proceed with procedure.
[2022-03-06] MEDS: HYDROmorphone HCL INJ (*CRX) 1 MG/ML SYR 0.5 MG IV PUSH ×2 (11:36→11:46)
--- NOTE | 2022-03-06 11:43 | P.OP_ITS ---
Procedure Note - Detailed Date of Procedure 03/06/22 Pre-op Diagnosis Bleeding open wound left posterior leg Post-op Diagnosis Same Procedure Performed Removal wound packing, controlled bleeding, placement wound VAC Surgeon Maciej Rea MD Safety Tech Myles Leone, [employer] Anesthesia General Indications Patient initially presented with an insect bite of the back of the left thigh with an abscess. He also had a left upper and lower lobe pulmonary embolism. The insect bite led to a very large deep MRSA abscess of the left posterior thigh. He had incision and drainage of this. He went home on his Eliquis. He then developed a large hematoma in the abscess cavity with evidence of pe rsistent bleeding on CT scan. The hematoma was evacuated and the wound packed 2 days ago. These had significant anemia and had 2 units of packed cells transfused yesterday. His H&H is stable from yesterday. He is taken back to surgery now for dressing change and with packing removal. If sufficiently hemostatic, plans are to place a wound VAC. Findings There was no significant bleeders and most of the packing had serosanguineous drainage not amanuel bloody drainage. The bleeding that was still occurring was firm raw muscular surface areas. This was able to be controlled with some cautery and Surgiflo. We were able with the assistance of the wound care specialty nurses to place a wound VAC with both white and black foam and Adaptic. Description of Procedure Patient was taken to surgery and induced into general anesthesia. He was then turned to prone mervin-knife position. The previous extensive dressings were removed. I removed his wound packing which included fluffs and 3 different Kerlix rolls. There was very little bleeding after removing this packing. We then prepped and draped the right posterior thigh and upper leg. The wounds were explored. As mentioned, there was a lot of raw surface area the tendon did ooze blood. I used 3 different treatments of Surgiflo and gentle pressure to control the majority of this. Some additional cautery was used for spot areas of bleeding. Wound care nurse came to the surgery and we power and recovery supervisor the wound together. We felt it was sufficiently dry to go ahead with the wound VAC. white foam was placed in the large proximal pocket, the small proximal counter incision pocket and between the middle and distal counter incisions. Adaptic was then placed over the central, larger wound with exposed muscle. We then placed black foam over the Adaptic and over the distal wound. The wound VAC was then placed such that it tracked around to the lateral aspect of the left thigh with the suction applied laterally. The wound held suction with no leaks very nicely. No blood was coming in the tubing. We then placed some gauze pads un fan the tubing connected to the wound VAC. the entire thigh was then dressed with 6 in Pavan wrap. The patient was returned to a supine position. He was awakened extubated and taken to recovery in good condition. Sponge and needle counts were correct x2. Estimated Blood Loss -20.0 Urine Output 300 Drains Yes (Negative pressure wound dressing, wound VAC) Packing No Pathology None sent Complications No immediate complications Condition Stable Disposition PACU [facility] Billing Surgery - Charge Forward: Surgery Billing (Removal wound packing, control muscular bleeding, placement wound VAC left leg.)
--- NOTE | 2022-03-06 13:28 | PC.NURSE ---
To OR per bed at 0815, IV saline locked. Report given to KAITLYN Muñoz.
--- NOTE | 2022-03-06 13:29 | PC.NURSE ---
Returned from OR per bed at 1215. Report received from KAITLYN Pak.
[2022-03-06] MEDS: DESVENLAFAXINE SUCCINATE 50 MG TAB.ER.24H PO (13:51)
[2022-03-06] MEDS: FAMOTIDINE 20 MG TABLET PO ×2 (13:51→21:47)
[2022-03-06] MEDS: VERAPAMIL HCL ER 240 MG TABLET.ER PO ×2 (13:51→21:47)
[2022-03-06] MEDS: LACTATED RINGERS 1,000 ML 80 ML IV CONT (13:51)
[2022-03-06] MEDS: ENOXAPARIN 40 MG/0.4 ML SYRINGE SUB-Q (13:51)
--- NOTE | 2022-03-06 14:11 | PM.IMPN ---
Progress Note: A&P Assessment and Plan (1) Pulmonary embolism: Code(s): I26.99 - Other pulmonary embolism without acute cor pulmonale Status: Acute Assessment and Plan: Eliquis is hold for now due to hematoma development Eliquis to resume after surgery. (2) MRSA (methicillin resistant Staphylococcus aureus) infection: Code(s): A49.02 - Methicillin resistant Staphylococcus aureus infection, unspecified site Status: Acute Assessment and Plan: Pt is on iv vancomycin for MRSA infection (3) Hematoma: Code(s): T14.8XXA - Other injury of unspecified body region, initial encounter Status: Acute Assessment and Plan: Patient is seen by surgery service status post evacuation of hematoma 03/04/2022 Had intramuscular bleeding of left leg Continues to ooze and went back to OR for evaluation. Hemostasis achieved. Continue to monitor H&H Plan acute blood loss anemia continues to be lower 6.1 planned PRBC transfusion. Transfuse as needed to keep hemoglobin more than 7 DVT prophylaxis placed on Lovenox Leukocytosis worsened to 26,000 could be reactive on IV vancomycin for MRSA infection. Blood cultures x2 negative. Leukocytosis continues to improve Subjective Date/time seen: 03/06/22 14:11 Interval history: He underwent hematoma evaluation again this morning. Seen after the procedure. Continues to have pain in the extremity. Wound VAC in place now. If remains afebrile. Family at bedside. Review of Systems Review of Systems: All systems reviewed & are unremarkable except as noted in HPI and below ( HPI and those items noted below) Exam Narrative: Patient alert and oriented x3 not in acute distress HEENT: eyes are clear and none icteric LUNGS: normal respiratory effort clear to auscultation bilaterally ABD: not distended soft nontender EXT left thigh with MICHELA wrap And wound VAC in place , left leg with pitting edema SKIN: nonjaundiced Neuro: grossly intact. alert and oriented x3 no focal motor deficits Objective Data Vital Signs Vital Signs: Vital Signs - 24 hr 03/05/22 14:20 03/05/22 18:13 03/05/22 18:29 Temperature 98.0 F 98.2 F 97.9 F Pulse Rate 76 85 86 Respiratory Rate 18 18 18 Blood Pressure 110/53 L 117/58 L 128/57 L Pulse Oximetry 100 96 100 Oxygen Delivery Oxygen Flow Rate 03/05/22 19:29 03/05/22 20:29 03/05/22 21:10 Temperature 98.8 F 97.8 F 98.4 F Pulse Rate 89 90 87 Respiratory Rate 18 18 17 Blood Pressure 114/52 L 102/54 L 99/50 L Pulse Oximetry 97 97 98 Oxygen Delivery Oxygen Flow Rate 03/05/22 21:56 03/06/22 05:33 03/06/22 08:45 Temperature 98.4 F 98.2 F 100.0 F H Pulse Rate 87 87 77 Respiratory Rate 17 17 16 Blood Pressure 99/50 L 105/55 L 107/51 L Pulse Oximetry 98 98 99 Oxygen Delivery Room Air Oxygen Flow Rate 03/06/22 11:15 03/06/22 11:30 03/06/22 11:45 Temperature 97.8 F Pulse Rate 86 80 79 Respiratory Rate 22 H 18 16 Blood Pressure 144/72 H 133/76 131/74 Pulse Oximetry 100 100 100 Oxygen Delivery Simple Face Mask Simple Face Mask Room Air Oxygen Flow Rate 6 6 03/06/22 12:00 03/06/22 12:15 03/06/22 12:30 Temperature 97.9 F 97.9 F Pulse Rate 74 75 79 Respiratory Rate 18 18 16 Blood Pressure 125/73 120/71 118/65 Pulse Oximetry 96 99 98 Oxygen Delivery Room Air Oxygen Flow Rate Intake/Output Intake/Output: Intake & Output 03/03/22 03/04/22 03/05/22 03/06/22 23:59 23:59 23:59 23:59 Intake Total 4120 2250 7040 1440 Output Total 250 6350 4425 3300 Balance 3870 -4100 2615 -1860 Meds/Results Medications: Active Medications Generic Name Dose Route Start Last Admin Trade Name Freq PRN Reason Stop Dose Admin Acetaminophen 500 mg 03/04/22 20:42 Acetaminophen 500 Mg Tablet PO Q6H PRN Mild Pain (1-3) or Fever Hydrocodone Bitart/Acetaminophen 1 tab 03/04/22 20:42 Hydrocodone/Acetaminophen (*Crx) 5-325 Mg Tablet PO Q4H PRN
[2022-03-06] MEDS: HYDROcodone/acetaminophen (*CRX) 10-325 MG TABLET 1 TAB PO ×2 (17:13→21:47)
[2022-03-06 18:57] LABS: Hematocrit 23.6 % (42.0-52.0); Hemoglobin 7.5 g/dL (14.0-18.0)
[2022-03-06] MEDS: ALPRAZolam (*CRX) 0.5 MG TABLET 1 MG PO (21:47)
[2022-03-06] MEDS: ROSUVASTATIN 5 MG TABLET PO (21:47)
[2022-03-06] MEDS: MELATONIN 5 MG TABLET 20 MG PO (21:48)
[2022-03-07] MEDS: HYDROmorphone HCL INJ (*CRX) 1 MG/ML SYR IV PUSH ×5 (00:43→20:07)
[2022-03-07] MEDS: LACTATED RINGERS 1,000 ML 80 ML IV CONT (03:08)
[2022-03-07 06:50] LABS: Hematocrit 22.3 % (42.0-52.0); Hemoglobin 7.2 g/dL (14.0-18.0); Mean Corpuscular HGB Conc 32.3 g/dl (32-36); Mean Corpuscular Hemoglobin 29.1 pg (26-34); Mean Corpuscular Volume 90.3 fl (80-100); Mean Platelet Volume 9.7 fl (7.4-10.4); Platelet Count Result 408 k/mm3 (150-375); Red Blood Count 2.47 M/mm3 (4.6-6.20); Red Cell Distribution Width 13.4 % (11.5-14.5); White Blood Count 14.4 K/mm3 (4.5-10.0)
[2022-03-07 07:02] LABS: Anion Gap 8 mmol/L (8-16); Blood Urea Nitrogen 5 mg/dL (9-20); Calcium 8.2 mg/dL (8.4-10.2); Carbon Dioxide 31 mmol/L (22-30); Chloride 94 mmol/L (98-107); Estimated CRCL calculation 132 ml/min; Estimated Glomerular Filt Rate > 60; Glucose 110 mg/dL (65-110); Potassium 3.5 mmol/L (3.4-5.0); Sodium 133 mmol/L (137-145)
[2022-03-07 07:03] VITALS: BP 102/55; PULSE 63; RESP 20; TEMP 36.4; O2SAT 98
[2022-03-07] MEDS: FAMOTIDINE 20 MG TABLET PO ×2 (08:06→21:15)
[2022-03-07] MEDS: DESVENLAFAXINE SUCCINATE 50 MG TAB.ER.24H PO (08:06)
[2022-03-07] MEDS: VERAPAMIL HCL ER 240 MG TABLET.ER PO ×2 (08:06→21:15)
[2022-03-07] MEDS: ENOXAPARIN 40 MG/0.4 ML SYRINGE SUB-Q (08:06)
--- NOTE | 2022-03-07 09:40 | PM.PNGS ---
Progress Note: A&P Assessment and Plan (1) Abscess of left thigh: Code(s): L02.416 - Cutaneous abscess of left lower limb Status: Acute Assessment and Plan: continue monitoring wound VAC, will plan to change on Wednesday. Stop IV fluids. Continue monitoring H&H. 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 No signs of active bleeding. (4) Hematoma: Code(s): T14.8XXA - Other injury of unspecified body region, initial encounter Status: Acute (5) Pulmonary embolism: Code(s): I26.99 - Other pulmonary embolism without acute cor pulmonale Status: Acute Subjective Subjective Date/Time Seen: 03/07/22 09:40 Interval history: still having some pain and occasional muscle spasms in thigh. No fevers. No lightheadedness or dizziness. Exam Skin: Other: Wound VAC in place on posterior thigh. No surrounding erythema. Minimal serosanguineous drainage in wound VAC canister Objective Data Vital Signs Vital Signs: Vital Signs - 24 hr 03/06/22 11:15 03/06/22 11:30 03/06/22 11:45 Temperature 36.6 C Pulse Rate 86 80 79 Respiratory Rate 22 H 18 16 Blood Pressure 144/72 H 133/76 131/74 Pulse Oximetry 100 100 100 Oxygen Delivery Simple Face Mask Simple Face Mask Room Air Oxygen Flow Rate 6 6 03/06/22 12:00 03/06/22 12:15 03/06/22 12:30 Temperature 36.6 C 36.6 C Pulse Rate 74 75 79 Respiratory Rate 18 18 16 Blood Pressure 125/73 120/71 118/65 Pulse Oximetry 96 99 98 Oxygen Delivery Room Air Oxygen Flow Rate 03/06/22 13:00 03/06/22 14:15 03/06/22 20:00 Temperature 36.6 C 36.8 C 36.6 C Pulse Rate 80 84 73 Respiratory Rate 16 16 18 Blood Pressure 119/69 116/70 126/68 Pulse Oximetry 99 99 97 Oxygen Delivery Oxygen Flow Rate 03/07/22 07:03 03/07/22 08:15 Temperature 36.4 C Pulse Rate 63 Respiratory Rate 20 Blood Pressure 102/55 L Pulse Oximetry 98 Oxygen Delivery Room Air Oxygen Flow Rate Intake/Output Intake/Output: Intake & Output 03/04/22 03/05/22 03/06/22 03/07/22 23:59 23:59 23:59 23:59 Intake Total 2250 7040 3950 5090 Output Total 6350 4425 7450 2900 Balance -4100 2615 -3500 2190 Meds/Results Medications: Active Medications Generic Name Dose Route Start Last Admin Trade Name Freq PRN Reason Stop Dose Admin Acetaminophen 500 mg 03/04/22 20:42 Acetaminophen 500 Mg Tablet PO Q6H PRN Mild Pain (1-3) or Fever Hydrocodone Bitart/Acetaminophen 1 tab 03/04/22 20:42 Hydrocodone/Acetaminophen (*Crx) 5-325 Mg Tablet PO Q4H PRN Pain Rated 4-6 Hydrocodone Bitart/Acetaminophen 1 tab 03/04/22 20:42 03/06/22 21:47 Hydrocodone/Acetaminophen (*Crx) 10-325 Mg Tablet PO 1 tab Q4H PRN Administration Pain Rated 7-10 Alprazolam 1 mg 03/03/22 21:00 03/06/22 21:47 Alprazolam (*Crx) 0.5 Mg Tablet PO 1 mg HS FLAVIA Administration Desvenlafaxine Succinate 50 mg 03/04/22 09:00 03/07/22 08:06 Desvenlafaxine Succinate 50 Mg Tab.Er.24h PO 04/03/22 08:59 50 mg DAILY FLAVIA Administration Enoxaparin Sodium 40 mg 03/05/22 09:00 03/07/22 08:06 Enoxaparin 40 Mg/0.4 Ml Syringe SUB-Q 40 mg DAILY FLAVIA Administration Famotidine 20 mg 03/03/22 10:53 03/07/22 08:06 Famotidine 20 Mg Tablet PO 20 mg Q12HR FLAVIA Administration Hydromorphone HCl 1 mg 03/04/22 20:42 03/07/22 03:10 Hydromorphone Hcl Inj (*Crx) 1 Mg/Ml Syr IV PUSH 1 mg Q2H PRN Administration Pain Rated 7-10 Hydromorphone HCl 0.5 mg 03/04/22 20:42 Hydromorphone Hcl Inj (*Crx) 1 Mg/Ml Syr IV PUSH Q2H PRN Pain Rated 4-6 Vancomycin HCl 1,500 mg in 500 mls @ 333.333 mls/hr 03/03/22 03:00 03/07/22 03:07 Vancomycin 1,500 Mg/D5w 500 Ml IVPB 333.33 ml
[2022-03-07] MEDS: HYDROcodone/acetaminophen (*CRX) 10-325 MG TABLET 1 TAB PO ×3 (10:00→23:14)
--- NOTE | 2022-03-07 12:01 | PM.IMPN ---
Progress Note: A&P Assessment and Plan (1) Pulmonary embolism: Code(s): I26.99 - Other pulmonary embolism without acute cor pulmonale Status: Acute Assessment and Plan: Eliquis is hold for now due to hematoma development Eliquis to resume after surgery. (2) MRSA (methicillin resistant Staphylococcus aureus) infection: Code(s): A49.02 - Methicillin resistant Staphylococcus aureus infection, unspecified site Status: Acute Assessment and Plan: Pt is on iv vancomycin for MRSA infection (3) Hematoma: Code(s): T14.8XXA - Other injury of unspecified body region, initial encounter Status: Acute Assessment and Plan: Patient is seen by surgery service status post evacuation of hematoma 03/04/2022 Had intramuscular bleeding of left leg Continues to ooze and went back to OR for evaluation. Hemostasis achieved. Continue to monitor H&H wound VAC in place. Plan to change on Wednesday Plan acute blood loss anemia continues to be lower 6.1 planned PRBC transfusion. Transfuse as needed to keep hemoglobin more than 7 DVT prophylaxis placed on Lovenox Leukocytosis worsened to 26,000 could be reactive on IV vancomycin for MRSA infection. Blood cultures x2 negative. Leukocytosis continues to improve Subjective Date/time seen: 03/07/22 12:01 Interval history: no overnight events. Continues to have pain in the thigh. No fever chills Review of Systems Review of Systems: All systems reviewed & are unremarkable except as noted in HPI and below ( HPI and those items noted below) Exam Narrative: Patient alert and oriented x3 not in acute distress HEENT: eyes are clear and none icteric LUNGS: normal respiratory effort clear to auscultation bilaterally ABD: not distended soft nontender EXT left thigh with MICHELA wrap And wound VAC in place , left leg with pitting edema SKIN: nonjaundiced Neuro: grossly intact. alert and oriented x3 no focal motor deficits Objective Data Vital Signs Vital Signs: Vital Signs - 24 hr 03/06/22 12:15 03/06/22 12:30 03/06/22 13:00 Temperature 97.9 F 97.9 F 97.9 F Pulse Rate 75 79 80 Respiratory Rate 18 16 16 Blood Pressure 120/71 118/65 119/69 Pulse Oximetry 99 98 99 Oxygen Delivery 03/06/22 14:15 03/06/22 20:00 03/07/22 07:03 Temperature 98.3 F 97.9 F 97.6 F Pulse Rate 84 73 63 Respiratory Rate 16 18 20 Blood Pressure 116/70 126/68 102/55 L Pulse Oximetry 99 97 98 Oxygen Delivery 03/07/22 08:15 Temperature Pulse Rate Respiratory Rate Blood Pressure Pulse Oximetry Oxygen Delivery Room Air Intake/Output Intake/Output: Intake & Output 03/04/22 03/05/22 03/06/22 03/07/22 23:59 23:59 23:59 23:59 Intake Total 2250 7049 3950 5090 Output Total 6344 2168 7164 2900 Balance -4100 2615 -3500 2190 Meds/Results Medications: Active Medications Generic Name Dose Route Start Last Admin Trade Name Freq PRN Reason Stop Dose Admin Acetaminophen 500 mg 03/04/22 20:42 Acetaminophen 500 Mg Tablet PO Q6H PRN Mild Pain (1-3) or Fever Hydrocodone Bitart/Acetaminophen 1 tab 03/04/22 20:42 Hydrocodone/Acetaminophen (*Crx) 5-325 Mg Tablet PO Q4H PRN Pain Rated 4-6 Hydrocodone Bitart/Acetaminophen 1 tab 03/04/22 20:42 03/07/22 10:00 Hydrocodone/Acetaminophen (*Crx) 10-325 Mg Tablet PO 1 tab Q4H PRN Administration Pain Rated 7-10 Alprazolam 1 mg 03/03/22 21:00 03/06/22 21:47 Alprazolam (*Crx) 0.5 Mg Tablet PO 1 mg HS FLAVIA Administration Desvenlafaxine Succinate 50 mg 03/04/22 09:00 03/07/22 08:06 Desvenlafaxine Succinate 50 Mg Tab.Er.24h PO 04/03/22 08:59 50 mg DAILY FLAVIA Administration Enoxaparin Sodium 40 mg 03/05/22 09:00 03/07/22 08:06 Enoxaparin 40 Mg/0.4 Ml Syringe SUB-Q 40 mg DAILY FLAVIA Administration Famotidine 20 mg 03/03/22 10:53 03/07/22 08:06 Famotidine 20 Mg Tablet PO 20 mg Q12HR FLAVIA Administration Hydrom
[2022-03-07 14:00] VITALS: BP 111/56; PULSE 64; RESP 16; TEMP 36.2; O2SAT 93
[2022-03-07] MEDS: ALPRAZolam (*CRX) 0.5 MG TABLET 1 MG PO (21:13)
[2022-03-07] MEDS: MELATONIN 5 MG TABLET 20 MG PO (21:14)
[2022-03-07] MEDS: ROSUVASTATIN 5 MG TABLET PO (21:15)
[2022-03-07 22:00] VITALS: BP 119/49; PULSE 66; RESP 17; TEMP 36.3; O2SAT 100
[2022-03-08] MEDS: HYDROmorphone HCL INJ (*CRX) 1 MG/ML SYR IV PUSH ×2 (03:05→08:21)
[2022-03-08 05:50] LABS: Hematocrit 22.3 % (42.0-52.0); Hemoglobin 7.2 g/dL (14.0-18.0); Mean Corpuscular HGB Conc 32.3 g/dl (32-36); Mean Corpuscular Hemoglobin 29.6 pg (26-34); Mean Corpuscular Volume 91.8 fl (80-100); Mean Platelet Volume 9.4 fl (7.4-10.4); Platelet Count Result 454 k/mm3 (150-375); Red Blood Count 2.43 M/mm3 (4.6-6.20); Red Cell Distribution Width 13.8 % (11.5-14.5); White Blood Count 11.7 K/mm3 (4.5-10.0)
[2022-03-08 05:59] LABS: Anion Gap 6 mmol/L (8-16); Blood Urea Nitrogen 6 mg/dL (9-20); Calcium 7.9 mg/dL (8.4-10.2); Carbon Dioxide 32 mmol/L (22-30); Chloride 98 mmol/L (98-107); Estimated CRCL calculation 117 ml/min; Estimated Glomerular Filt Rate > 60; Glucose 137 mg/dL (65-110); Potassium 3.2 mmol/L (3.4-5.0); Sodium 136 mmol/L (137-145)
[2022-03-08 06:00] VITALS: BP 111/66; PULSE 59; RESP 18; TEMP 36.7; O2SAT 92
[2022-03-08] MEDS: HYDROcodone/acetaminophen (*CRX) 10-325 MG TABLET 1 TAB PO ×3 (06:37→15:12)
[2022-03-08] MEDS: DESVENLAFAXINE SUCCINATE 50 MG TAB.ER.24H PO (08:21)
[2022-03-08] MEDS: FAMOTIDINE 20 MG TABLET PO ×2 (08:21→20:23)
[2022-03-08] MEDS: ENOXAPARIN 40 MG/0.4 ML SYRINGE SUB-Q (08:21)
[2022-03-08] MEDS: VERAPAMIL HCL ER 240 MG TABLET.ER PO ×2 (08:21→20:22)
[2022-03-08] MEDS: POTASSIUM CHLORIDE 20 MEQ TABLET 40 MEQ PO (08:59)
--- NOTE | 2022-03-08 10:21 | PM.PNGS ---
Progress Note: A&P Assessment and Plan (1) Abscess of left thigh: Code(s): L02.416 - Cutaneous abscess of left lower limb Status: Acute Assessment and Plan: continue monitoring wound VAC, will plan to change on Wednesday. 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 No signs of active bleeding. (4) Hematoma: Code(s): T14.8XXA - Other injury of unspecified body region, initial encounter Status: Acute (5) Pulmonary embolism: Code(s): I26.99 - Other pulmonary embolism without acute cor pulmonale Status: Acute Subjective Subjective Date/Time Seen: 03/08/22 10:21 Interval history: pain somewhat improving. Had better pain control overnight. No lightheadedness or dizziness. Exam Extrem: Other: Left thigh wound VAC in place. Dressing in place. Minimal bloody drainage in wound VAC tubing. Objective Data Vital Signs Vital Signs: Vital Signs - 24 hr 03/07/22 14:00 03/07/22 22:00 03/08/22 06:00 Temperature 36.2 C L 36.3 C L 36.7 C Pulse Rate 64 66 59 L Respiratory Rate 16 17 18 Blood Pressure 111/56 L 119/49 L 111/66 Pulse Oximetry 93 100 92 Oxygen Delivery 03/08/22 08:10 Temperature Pulse Rate Respiratory Rate Blood Pressure Pulse Oximetry Oxygen Delivery Room Air Intake/Output Intake/Output: Intake & Output 03/05/22 03/06/22 03/07/22 03/08/22 23:59 23:59 23:59 23:59 Intake Total 7040 3950 8890 3540 Output Total 7337 3671 9049 1700 Balance 2615 -3500 3440 1840 Meds/Results Medications: Active Medications Generic Name Dose Route Start Last Admin Trade Name Freq PRN Reason Stop Dose Admin Acetaminophen 500 mg 03/04/22 20:42 Acetaminophen 500 Mg Tablet PO Q6H PRN Mild Pain (1-3) or Fever Hydrocodone Bitart/Acetaminophen 1 tab 03/04/22 20:42 Hydrocodone/Acetaminophen (*Crx) 5-325 Mg Tablet PO Q4H PRN Pain Rated 4-6 Hydrocodone Bitart/Acetaminophen 1 tab 03/04/22 20:42 03/08/22 06:37 Hydrocodone/Acetaminophen (*Crx) 10-325 Mg Tablet PO 1 tab Q4H PRN Administration Pain Rated 7-10 Alprazolam 1 mg 03/03/22 21:00 03/07/22 21:13 Alprazolam (*Crx) 0.5 Mg Tablet PO 1 mg HS FLAVIA Administration Desvenlafaxine Succinate 50 mg 03/04/22 09:00 03/08/22 08:21 Desvenlafaxine Succinate 50 Mg Tab.Er.24h PO 04/03/22 08:59 50 mg DAILY FLVAIA Administration Enoxaparin Sodium 40 mg 03/05/22 09:00 03/08/22 08:21 Enoxaparin 40 Mg/0.4 Ml Syringe SUB-Q 40 mg DAILY FLAVIA Administration Famotidine 20 mg 03/03/22 10:53 03/08/22 08:21 Famotidine 20 Mg Tablet PO 20 mg Q12HR FLAVIA Administration Hydromorphone HCl 1 mg 03/04/22 20:42 03/08/22 08:21 Hydromorphone Hcl Inj (*Crx) 1 Mg/Ml Syr IV PUSH 1 mg Q2H PRN Administration Pain Rated 7-10 Hydromorphone HCl 0.5 mg 03/04/22 20:42 Hydromorphone Hcl Inj (*Crx) 1 Mg/Ml Syr IV PUSH Q2H PRN Pain Rated 4-6 Vancomycin HCl 1,500 mg in 500 mls @ 333.333 mls/hr 03/03/22 03:00 03/08/22 03:07 Vancomycin 1,500 Mg/D5w 500 Ml IVPB 333.33 mls/hr Q12H FLAVIA Administration Melatonin 20 mg 03/03/22 10:02 03/07/22 21:14 Melatonin 5 Mg Tablet PO 20 mg HS PRN Administration Insomnia Miscellaneous Information 1 each 03/03/22 00:01 03/05/22 19:38 Desvenlafaxine Nonformulary. Can Patient Use Home Supply? XX 04/02/22 00:00 Not Given CLARIFY FLAVIA Miscellaneous Information 1 each 03/03/22 00:01 03/05/22 19:38 Trudhesa Nonformulary. Can Patient Use Home Supply? XX 04/02/22 00:00 Not Given CLARIFY FLAVIA Naloxone HCl 0.1 mg 03/04/22 20:42 Naloxone Hcl 0.4 Mg/Ml Vial IV PUSH Q2M PRN Opiate Reversal Non-Formulary Medication 0.725 mg
[2022-03-08 14:34] VITALS: BP 109/62; PULSE 59; RESP 16; TEMP 36.1; O2SAT 99
[2022-03-08 14:49] LABS: Vancomycin Trough 13.4 ug/mL (10.0-20.0)
--- NOTE | 2022-03-08 15:15 | PM.IMPN ---
Progress Note: A&P Assessment and Plan (1) Pulmonary embolism: Code(s): I26.99 - Other pulmonary embolism without acute cor pulmonale Status: Acute Assessment and Plan: Eliquis is hold for now due to hematoma development Eliquis to resume after surgery. Currently on Lovenox DVT prophylaxis does (2) MRSA (methicillin resistant Staphylococcus aureus) infection: Code(s): A49.02 - Methicillin resistant Staphylococcus aureus infection, unspecified site Status: Acute Assessment and Plan: Pt is on iv vancomycin for MRSA infection. No active infection ongoing WBC count is improving. Will plan to stop IV vancomycin in a.m. (3) Hematoma: Code(s): T14.8XXA - Other injury of unspecified body region, initial encounter Status: Acute Assessment and Plan: Patient is seen by surgery service status post evacuation of hematoma 03/04/2022 Had intramuscular bleeding of left leg Continues to ooze and went back to OR for evaluation. Hemostasis achieved. Continue to monitor H&H wound VAC in place. Plan to change on Wednesday Plan acute blood loss anemia continues to be lower 6.1 planned PRBC transfusion. Transfuse as needed to keep hemoglobin more than 7 DVT prophylaxis placed on Lovenox Leukocytosis worsened to 26,000 could be reactive on IV vancomycin for MRSA infection. Blood cultures x2 negative. Leukocytosis continues to improve Subjective Date/time seen: 03/08/22 15:15 Interval history: no overnight events. Feeling a bit better. Denies any fever. H&H is stable. Wound VAC in place discuss pain option during the visit today. Review of Systems Review of Systems: All systems reviewed & are unremarkable except as noted in HPI and below ( HPI and those items noted below) Exam Narrative: Patient alert and oriented x3 not in acute distress HEENT: eyes are clear and none icteric LUNGS: normal respiratory effort clear to auscultation bilaterally ABD: not distended soft nontender EXT left thigh with MICHELA wrap And wound VAC in place , left leg with pitting edema SKIN: nonjaundiced Neuro: grossly intact. alert and oriented x3 no focal motor deficits Objective Data Vital Signs Vital Signs: Vital Signs - 24 hr 03/07/22 22:00 03/08/22 06:00 03/08/22 08:10 Temperature 97.3 F L 98.1 F Pulse Rate 66 59 L Respiratory Rate 17 18 Blood Pressure 119/49 L 111/66 Pulse Oximetry 100 92 Oxygen Delivery Room Air 03/08/22 14:34 Temperature 97.0 F L Pulse Rate 59 L Respiratory Rate 16 Blood Pressure 109/62 Pulse Oximetry 99 Oxygen Delivery Intake/Output Intake/Output: Intake & Output 03/05/22 03/06/22 03/07/22 03/08/22 23:59 23:59 23:59 23:59 Intake Total 7040 3950 8890 4280 Output Total 4483 7489 5454 1700 Balance 2615 -3500 3440 2580 Meds/Results Medications: Active Medications Generic Name Dose Route Start Last Admin Trade Name Freq PRN Reason Stop Dose Admin Acetaminophen 500 mg 03/04/22 20:42 Acetaminophen 500 Mg Tablet PO Q6H PRN Mild Pain (1-3) or Fever Alprazolam 1 mg 03/03/22 21:00 03/07/22 21:13 Alprazolam (*Crx) 0.5 Mg Tablet PO 1 mg HS FLAVIA Administration Desvenlafaxine Succinate 50 mg 03/04/22 09:00 03/08/22 08:21 Desvenlafaxine Succinate 50 Mg Tab.Er.24h PO 04/03/22 08:59 50 mg DAILY FLAVIA Administration Enoxaparin Sodium 40 mg 03/05/22 09:00 03/08/22 08:21 Enoxaparin 40 Mg/0.4 Ml Syringe SUB-Q 40 mg DAILY FLAVIA Administration Famotidine 20 mg 03/03/22 10:53 03/08/22 08:21 Famotidine 20 Mg Tablet PO 20 mg Q12HR FLAVIA Administration Hydromorphone HCl 1 mg 03/04/22 20:42 03/08/22 08:21 Hydromorphone Hcl Inj (*Crx) 1 Mg/Ml Syr IV PUSH 1 mg Q2H PRN Administration Pain Rated 7-10 Hydromorphone HCl 0.5 mg 03/04/22 20:42 Hydromorphone Hcl Inj (*Crx) 1 Mg/Ml Syr IV PUSH Q2H PRN Pain Rated 4-6 Hydromorphone HCl 4 mg 03/08/22 15:09 H
[2022-03-08] MEDS: HYDROmorphone HCL (*CRX) 4 MG TABLET PO (20:17)
[2022-03-08] MEDS: ALPRAZolam (*CRX) 0.5 MG TABLET 1 MG PO (20:19)
[2022-03-08] MEDS: MELATONIN 5 MG TABLET 20 MG PO (20:20)
[2022-03-08] MEDS: ROSUVASTATIN 5 MG TABLET PO (20:23)
[2022-03-08 22:00] VITALS: BP 110/55; PULSE 61; RESP 18; TEMP 36.6; O2SAT 96
[2022-03-09] VITALS (10 sets, daily range): BP systolic 98–122; BP diastolic 53–78; PULSE 51–81; RESP 11–20; TEMP 36.1–37.2; O2SAT 93–100
[2022-03-09] MEDS: HYDROmorphone HCL (*CRX) 4 MG TABLET PO ×4 (02:54→22:47)
[2022-03-09 06:44] LABS: Hematocrit 23.6 % (42.0-52.0); Hemoglobin 7.3 g/dL (14.0-18.0); Mean Corpuscular HGB Conc 30.9 g/dl (32-36); Mean Corpuscular Hemoglobin 29.2 pg (26-34); Mean Corpuscular Volume 94.4 fl (80-100); Mean Platelet Volume 9.3 fl (7.4-10.4); Platelet Count Result 501 k/mm3 (150-375); Red Cell Distribution Width 13.9 % (11.5-14.5); White Blood Count 10.2 K/mm3 (4.5-10.0)
[2022-03-09 06:57] LABS: Anion Gap 7 mmol/L (8-16); Blood Urea Nitrogen 6 mg/dL (9-20); Calcium 7.9 mg/dL (8.4-10.2); Carbon Dioxide 33 mmol/L (22-30); Chloride 99 mmol/L (98-107); Estimated CRCL calculation 105 ml/min; Estimated Glomerular Filt Rate > 60; Glucose 92 mg/dL (65-110); Magnesium 1.9 mg/dL (1.6-2.3); Potassium 3.6 mmol/L (3.4-5.0); Sodium 139 mmol/L (137-145)
[2022-03-09] MEDS: DESVENLAFAXINE SUCCINATE 50 MG TAB.ER.24H PO (08:43)
[2022-03-09] MEDS: FAMOTIDINE 20 MG TABLET PO ×2 (08:43→21:02)
[2022-03-09] MEDS: ENOXAPARIN 40 MG/0.4 ML SYRINGE SUB-Q (08:44)
[2022-03-09] MEDS: VERAPAMIL HCL ER 240 MG TABLET.ER PO ×2 (08:44→21:02)
--- NOTE | 2022-03-09 11:47 | PM.IMPN ---
Progress Note: A&P Assessment and Plan (1) Pulmonary embolism: Code(s): I26.99 - Other pulmonary embolism without acute cor pulmonale Status: Acute Assessment and Plan: Eliquis is hold for now due to hematoma development Eliquis to resume after surgery. Currently on Lovenox DVT prophylaxis dose (2) MRSA (methicillin resistant Staphylococcus aureus) infection: Code(s): A49.02 - Methicillin resistant Staphylococcus aureus infection, unspecified site Status: Acute Assessment and Plan: Pt is on iv vancomycin for MRSA infection. No active infection ongoing WBC count is improving. WBC count improving After wound VAC replacement and evaluation today will stop IV vancomycin (3) Hematoma: Code(s): T14.8XXA - Other injury of unspecified body region, initial encounter Status: Acute Assessment and Plan: Patient is seen by surgery service status post evacuation of hematoma 03/04/2022 Had intramuscular bleeding of left leg Continues to ooze and went back to OR for evaluation. Hemostasis achieved. Continue to monitor H&H wound VAC in place. Plan to change today Plan acute blood loss anemia continues to be lower 6.1 planned PRBC transfusion. Transfuse as needed to keep hemoglobin more than 7 DVT prophylaxis placed on Lovenox Leukocytosis worsened to 26,000 could be reactive on IV vancomycin for MRSA infection. Blood cultures x2 negative. Leukocytosis continues to improve Subjective Date/time seen: 03/09/22 11:47 Interval history: he feels better. Pain is better controlled. He has not had any IV since yesterday. H&H remained stable. He is going to go for wound VAC change today. Review of Systems Review of Systems: All systems reviewed & are unremarkable except as noted in HPI and below ( HPI and those items noted below) Exam Narrative: Patient alert and oriented x3 not in acute distress HEENT: eyes are clear and none icteric LUNGS: normal respiratory effort clear to auscultation bilaterally ABD: not distended soft nontender EXT left thigh with MICHELA wrap And wound VAC in place , left leg with pitting edema SKIN: nonjaundiced Neuro: grossly intact. alert and oriented x3 no focal motor deficits Objective Data Vital Signs Vital Signs: Vital Signs - 24 hr 03/08/22 14:34 03/08/22 22:00 03/08/22 20:20 Temperature 97.0 F L 98 F Pulse Rate 59 L 61 Respiratory Rate 16 18 Blood Pressure 109/62 110/55 L Pulse Oximetry 99 96 Oxygen Delivery Room Air 03/09/22 06:00 Temperature 97 F L Pulse Rate 59 L Respiratory Rate 16 Blood Pressure 118/72 Pulse Oximetry 97 Oxygen Delivery Intake/Output Intake/Output: Intake & Output 03/06/22 03/07/22 03/08/22 03/09/22 23:59 23:59 23:59 23:59 Intake Total 3950 8890 6720 2150 Output Total 7450 5450 5700 2400 Balance -3500 3440 1020 -250 Meds/Results Medications: Active Medications Generic Name Dose Route Start Last Admin Trade Name Freq PRN Reason Stop Dose Admin Acetaminophen 500 mg 03/04/22 20:42 Acetaminophen 500 Mg Tablet PO Q6H PRN Mild Pain (1-3) or Fever Alprazolam 1 mg 03/03/22 21:00 03/08/22 20:19 Alprazolam (*Crx) 0.5 Mg Tablet PO 1 mg HS FLAVIA Administration Desvenlafaxine Succinate 50 mg 03/04/22 09:00 03/09/22 08:43 Desvenlafaxine Succinate 50 Mg Tab.Er.24h PO 04/03/22 08:59 50 mg DAILY FLAVIA Administration Enoxaparin Sodium 40 mg 03/05/22 09:00 03/09/22 08:44 Enoxaparin 40 Mg/0.4 Ml Syringe SUB-Q 40 mg DAILY FLAVIA Administration Famotidine 20 mg 03/03/22 10:53 03/09/22 08:43 Famotidine 20 Mg Tablet PO 20 mg Q12HR FLAVIA Administration Hydromorphone HCl 1 mg 03/04/22 20:42 03/08/22 08:21 Hydromorphone Hcl Inj (*Crx) 1 Mg/Ml Syr IV PUSH 1 mg Q2H PRN Administration Pain Rated 7-10 Hydromorphone HCl 0.5 mg 03/04/22 20:42 Hydromorphone Hcl Inj (*Crx) 1 Mg/Ml Syr IV PUSH Q2H PRN Pain
--- NOTE | 2022-03-09 12:29 | WPDANESEPPF ---
Anes - Initial Pre Proc Eval Procedure: Operation Date: 03/04/22 16:00 Proposed Procedures p Incision and Drainage Hematoma Left Thigh - Maciej Rea MD Operation Date: 03/06/22 09:30 Proposed Procedures p Left Posterior Thigh Dressing Change - Maciej Rea MD Operation Date: 03/09/22 13:00 Proposed Procedures p Dressing Change Under Anesthesia Left Thigh - Maciej Rea MD Date/Time: 03/09/22 12:29 Surgeon: Alin Norwood MD Pre Op Diagnosis: hematoma Patient Data Age: 51 Gender: M Height: 1.93 m Weight: 93 kg Last Vital Signs Temp 37.2 C 03/09/22 12:27 Pulse 60 03/09/22 12:27 Resp 16 03/09/22 12:27 BP 108/70 03/09/22 12:27 Pulse Ox 100 03/09/22 12:27 O2 Del Method Room Air 03/09/22 12:27 O2 Flow Rate 6 03/06/22 11:30 Allergies Allergy/AdvReac Type Severity Reaction Status Date / Time cefaclor [From Ceclor] AdvReac Diarrhea Verified 03/06/22 07:56 cefuroxime [From Ceftin] AdvReac Diarrhea Verified 03/06/22 07:56 Home Medications Medication Instructions Recorded Confirmed Type alprazolam 1 mg tablet 1 mg PO DAILY 02/19/22 03/06/22 History desvenlafaxine succinate 50 mg 50 mg PO DAILY 02/19/22 03/06/22 History tablet,extended release 24 hr dihydroergotamine (Trudhesa) 0.725 mg intranasal PRN PRN 02/19/22 03/06/22 History headaches melatonin 10 mg tablet 20 mg PO HS PRN Insomnia 02/19/22 03/06/22 History rosuvastatin 5 mg tablet 5 mg PO DAILY 02/19/22 03/06/22 History verapamil 240 mg tablet,extended 240 mg PO BID 02/19/22 03/06/22 History release hydrocodone 5 mg-acetaminophen 325 1 - 2 tablet PO Q6H PRN pain #20 02/25/22 03/06/22 Rx mg tablet tabs apixaban 5 mg tablet (Eliquis) 5 mg PO Q12HR #60 tabs 02/26/22 03/06/22 Rx famotidine 20 mg tablet 20 mg PO Q12HR #60 tabs 02/26/22 03/06/22 Rx sulfamethoxazole 800 1 tablet PO Q12H #10 tabs 02/26/22 03/06/22 Rx mg-trimethoprim 160 mg tablet (Bactrim DS) Laboratory Tests 03/08/22 03/09/22 03/09/22 14:03 05:38 05:38 WBC 10.2 K/mm3 H K/mm3 (4.5-10.0) RBC 2.50 M/mm3 L M/mm3 (4.6-6.20) Hgb 7.3 g/dL L g/dL (14.0-18.0) Hct 23.6 % L % (42.0-52.0) MCV 94.4 fl fl (80-100) MCH 29.2 pg pg (26-34) MCHC 30.9 g/dl L g/dl (32-36) RDW 13.9 % % (11.5-14.5) Plt Count 501 k/mm3 H k/mm3 (150-375) MPV 9.3 fl fl (7.4-10.4) Sodium 139 mmol/L mmol/L (137-145) Potassium 3.6 mmol/L mmol/L (3.4-5.0) Chloride 99 mmol/L mmol/L (98-107) Carbon Dioxide 33 mmol/L H mmol/L (22-30) Anion Gap 7 mmol/L L mmol/L (8-16) BUN 6 mg/dL L mg/dL (9-20) Creatinine 0.90 mg/dL mg/dL (0.7-1.3) Estim Creat Clear Calc 105 ml/min ml/min Estimated GFR > 60 (59 - ) Glucose 92 mg/dL mg/dL (65-110) Calcium 7.9 mg/dL L mg/dL (8.4-10.2) Magnesium 1.9 mg/dL mg/dL (1.6-2.3) Vancomycin Trough 13.4 ug/mL ug/mL (10.0-20.0) Patient hx anesthesia problems: none Family hx anesthesia problems: none Results Review: All pre-operative results and documents have been reviewed as part of the pre-operative evaluation. FOR[facility]LY [facility] Past Medical History Medical History Anxiety Borderline hyperlipidemia Cluster headache Pulmonary embolism Surgical History Surgical History H/O hernia repair S/P orchiectomy Family History Family History Father Lung cancer Sibling Lung cancer Social History Social History Social History: The patient continues to smoke 1 pack a cigarettes a day. He lives with his . He has 1 biologic child and has 1 step child. He works fo
--- NOTE | 2022-03-09 12:35 | WPDHPUPDATE1 ---
History and Physical Update Update Date/Time: 03/09/22 12:35 History and Physical has been reviewed, including an updated exam of the patient. There are NO changes in the patient's condition. Risks, benefits, and alternatives have been discussed and questions answered. Patient agrees to proceed with procedure.
[2022-03-09] MEDS: LACTATED RINGERS 1,000 ML 30 ML IV CONT (12:49)
--- NOTE | 2022-03-09 13:53 | W.PM.PROC2 ---
Procedure Note - Detailed Date of Procedure 03/09/22 Pre-op Diagnosis Bleeding, open wound left posterior thigh Post-op Diagnosis Same Procedure Performed Wound VAC dressing change under anesthesia Surgeon Maciej Rea MD Anesthesia General Indications Patient is a 51-year-old man who had a large abscess in the deep posterior left thigh. He also had a pulmonary embolism. At home, while on blood thinner, he developed arterial bleeding into the wound abscess and got a large hematoma. The hematoma was evacuated. Anticoagulation has been held. A wound VAC was placed last week. He is taken back to surgery for change of the wound VAC under anesthesia. There were several deep pockets that were very tender requiring anesthesia both to change the wound VAC and to thoroughly examine the wound. Findings No evidence of additional hemorrhage was noted. All wound surfaces looked clean with onset of granulation tissue. No evidence of infection was noted. Description of Procedure Patient was taken to surgery and says anesthesia was introduced. He was placed in prone position. The wound VAC was removed. We then carefully examined the wound both visually and by digital palpation. There was some deeper tunneled pockets up towards the thigh. No evidence of bleeding or infection were noted. We then carefully replaced the wound VAC with white and black foam. The wound care specialty nurse was present for the wound VAC placement. Once we had a good seal with the wound VAC, gauze was placed under the tubing and the thigh was wrapped with 6 in Pavan wrap. Patient was returned to a supine position. He was awakened and then taken to recovery in good condition. Sponge and needle counts were correct x2. Estimated Blood Loss -5.0 Urine Output 2,400 Drains Yes (Negative pressure wound therapy, wound VAC) Packing No Pathology None sent Complications No immediate complications Condition Stable Disposition PACU [facility] Billing Surgery - Charge Forward: Surgery Billing (Wound VAC dressing change under anesthesia left upper leg)
[2022-03-09] MEDS: HYDROmorphone HCL (*CRX) 2 MG TABLET PO (18:15)
[2022-03-09] MEDS: ROSUVASTATIN 5 MG TABLET PO (21:02)
[2022-03-09] MEDS: ALPRAZolam (*CRX) 0.5 MG TABLET 1 MG PO (21:02)
[2022-03-10] VITALS (7 sets, daily range): BP systolic 103–119; BP diastolic 59–63; PULSE 63–79; RESP 12–19; TEMP 35.9–36.6; O2SAT 94–100
[2022-03-10] MEDS: LACTATED RINGERS 1,000 ML 80 ML IV CONT ×2 (03:19→17:04)
[2022-03-10 05:57] LABS: Basophils Absolute Auto 0.1 K/mm3 (0.0-0.1); Basophils Percent Auto 0.9 % (0.2-1.2); Eosinophils Absolute Auto 0.4 K/mm3 (0-0.3); Eosinophils Percent Auto 3.5 % (0-4.4); Hematocrit 24.1 % (42.0-52.0); Hemoglobin 7.4 g/dL (14.0-18.0); Immature Granulocyte Absolute 0.04 K/mm3 (0.00-0.031); Immature Granulocyte Percent A 0.4 % (0-0.5); Lymphocytes Absolute Auto 3.57 K/mm3 (0.9-3.2); Lymphocytes Percent Auto 34.6 % (18.3-44.2); Mean Corpuscular HGB Conc 30.7 g/dl (32-36); Mean Corpuscular Hemoglobin 28.7 pg (26-34); Mean Corpuscular Volume 93.4 fl (80-100); Mean Platelet Volume 9.1 fl (7.4-10.4); Monocytes Absolute Auto 0.8 K/mm3 (0.1-0.6); Monocytes Percent Auto 7.3 % (2.6-8.5); Neutrophils Absolute Auto 5.5 K/mm3 (1.3-6.7); Neutrophils Percent Auto 53.3 % (45.5-73.1); Platelet Count Result 537 k/mm3 (150-375); Red Blood Count 2.58 M/mm3 (4.6-6.20); White Blood Count 10.3 K/mm3 (4.5-10.0)
[2022-03-10 06:34] LABS: Alanine Aminotransferase 18 U/L (6-50); Albumin Level 2.7 g/dL (3.5-5.1); Alkaline Phosphatase 48 U/L (38-126); Anion Gap 6 mmol/L (8-16); Aspartate Amino Transferase 21 U/L (17-59); Bilirubin,Total 0.4 mg/dL (0.2-1.3); Blood Urea Nitrogen 10 mg/dL (9-20); Calcium 8.1 mg/dL (8.4-10.2); Carbon Dioxide 30 mmol/L (22-30); Chloride 98 mmol/L (98-107); Estimated CRCL calculation 105 ml/min; Estimated Glomerular Filt Rate > 60; Glucose 96 mg/dL (65-110); Magnesium 1.9 mg/dL (1.6-2.3); Sodium 134 mmol/L (137-145)
[2022-03-10] MEDS: ENOXAPARIN 40 MG/0.4 ML SYRINGE SUB-Q (09:21)
[2022-03-10] MEDS: DESVENLAFAXINE SUCCINATE 50 MG TAB.ER.24H PO (09:21)
[2022-03-10] MEDS: FAMOTIDINE 20 MG TABLET PO ×2 (09:22→20:13)
[2022-03-10] MEDS: VERAPAMIL HCL ER 240 MG TABLET.ER PO ×2 (09:22→20:12)
[2022-03-10] MEDS: HYDROmorphone HCL (*CRX) 2 MG TABLET PO (09:29)
--- NOTE | 2022-03-10 10:52 | PCNWS ---
Weekly nutritional screen. Patient is tolerating current regular diet with adequate intake at 75-100%. No weight loss reported. No nutritional needs at this time.
[2022-03-10] MEDS: HYDROmorphone HCL INJ (*CRX) 1 MG/ML SYR IV PUSH ×3 (10:54→17:04)
--- NOTE | 2022-03-10 11:00 | PM.PNGS ---
Progress Note: A&P Assessment and Plan (1) Open wound of left thigh: Code(s): S71.102A - Unspecified open wound, left thigh, initial encounter Status: Acute Assessment and Plan: No evidence of bleeding. Anticoagulation still on hold. No evidence of infection at surgery yesterday or on Wednesday. Wound is definitely improving. Plan to proceed to the operating room tomorrow for delayed primary wound closure over a drain. Will get repeat venous Doppler today to evaluate for development of DVT although previous venous Doppler was negative. Left leg continues to be swollen. Advised patient to keep elevated. (2) Hematoma: Code(s): T14.8XXA - Other injury of unspecified body region, initial encounter Status: Acute Assessment and Plan: evacuated with no further signs of bleeding. (3) Acute blood loss anemia: Code(s): D62 - Acute posthemorrhagic anemia Status: Acute Assessment and Plan: Stable (4) Pulmonary embolism: Code(s): I26.99 - Other pulmonary embolism without acute cor pulmonale Status: Acute Assessment and Plan: Much improved by follow-up CT scan. Was subsegmental. No DVT by venous Doppler when PE diagnosed. 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 Patient is still receiving prophylactic dose of Lovenox throughout this admission. Subjective Subjective Date/Time Seen: 03/10/22 11:00 Patient reports: no new complaints, still having pain ( Less than last weekend and less overall) and afebrile Review of Systems Review of Systems: All systems reviewed & are unremarkable except as noted in HPI and below ( HPI) Constitutional: Constitutional: Denies chills and Denies fever(s) Cardiovascular: Cardiovascular: Denies chest pain, Denies diaphoresis, Denies dyspnea and Denies paroxysmal nocturnal dyspnea Respiratory: Respiratory: Denies chest congestion, Denies cough and Denies dyspnea Exam Const: General: cooperative, comfortable and no acute distress Nutritional Appearance: average body habitus Orientation/consciousness: patient oriented x3 Extrem: Left lower extremity: edema and hip/thigh ( Pavan wrap and wound VAC in place, minimal blood in drainage. ) Details: other ( Wound VAC working well) Objective Data Vital Signs Vital Signs: Vital Signs - 24 hr 03/09/22 12:27 03/09/22 13:37 03/09/22 13:52 Temperature 37.2 C 36.3 C L Pulse Rate 60 79 57 L Respiratory Rate 16 11 L 11 L Blood Pressure 108/70 117/57 L 98/53 L Pulse Oximetry 100 97 99 Oxygen Delivery Room Air Simple Face Mask Simple Face Mask Oxygen Flow Rate 6 6 03/09/22 14:05 03/09/22 14:20 03/09/22 14:35 Temperature Pulse Rate 56 L 52 L 51 L Respiratory Rate 13 13 17 Blood Pressure 105/60 102/70 110/69 Pulse Oximetry 100 93 96 Oxygen Delivery Simple Face Mask Room Air Room Air Oxygen Flow Rate 6 03/09/22 14:50 03/09/22 14:00 03/09/22 20:30 Temperature 36.3 C L Pulse Rate 51 L 61 Respiratory Rate 15 20 Blood Pressure 119/78 122/74 Pulse Oximetry 94 98 Oxygen Delivery Room Air Room Air Oxygen Flow Rate 03/09/22 22:00 03/10/22 00:20 03/10/22 06:00 Temperature 36.5 C 36.1 C L 36.5 C Pulse Rate 81 79 63 Respiratory Rate 18 19 17 Blood Pressure 122/67 116/59 L 103/60 Pulse Oximetry 100 96 97 Oxygen Delivery Oxygen Flow Rate 03/10/22 07:46 03/10/22 09:30 Temperature 35.9 C L Pulse Rate 63 Respiratory Rate 14 Blood Pressure 115/63 Pulse Oximetry 96 Oxygen Delivery Room Air Oxygen Flow Rate Intake/Output Intake/Output: Intake & Output 03/07/22 03/08/22 03/09/22 03/10/22 23:59 23:59 23:59 23:59 Intake Total 8890 6720 3990 2750 Output Total 5450 7590 6490 2250 Balance 3440 1020 -2500 500 Meds/Results
--- NOTE | 2022-03-10 15:32 | WPDANESEPPF ---
Anes - Initial Pre Proc Eval Procedure: Operation Date: 03/04/22 16:00 Proposed Procedures p Incision and Drainage Hematoma Left Thigh - Maciej Rea MD Operation Date: 03/06/22 09:30 Proposed Procedures p Left Posterior Thigh Dressing Change - Maciej Rea MD Operation Date: 03/09/22 13:00 Proposed Procedures p Dressing Change Under Anesthesia Left Thigh - Maciej Rea MD Operation Date: 03/11/22 13:00 Proposed Procedures p Delayed Primary Closure Left Thigh Wound - Maciej Rea MD Date/Time: 03/10/22 15:32 Surgeon: Alin Norwood MD Pre Op Diagnosis: hematoma Patient Data Age: 51 Gender: M Height: 1.93 m Weight: 93 kg Last Vital Signs Temp 36.6 C 03/10/22 12:00 Pulse 64 03/10/22 12:00 Resp 18 03/10/22 12:00 BP 114/61 03/10/22 12:00 Pulse Ox 100 03/10/22 12:00 O2 Del Method Room Air 03/10/22 09:30 O2 Flow Rate 6 03/09/22 14:05 Allergies Allergy/AdvReac Type Severity Reaction Status Date / Time cefaclor [From Ceclor] AdvReac Diarrhea Verified 03/11/22 14:28 cefuroxime [From Ceftin] AdvReac Diarrhea Verified 03/11/22 14:28 Home Medications Medication Instructions Recorded Confirmed Type alprazolam 1 mg tablet 1 mg PO DAILY 02/19/22 03/06/22 History desvenlafaxine succinate 50 mg 50 mg PO DAILY 02/19/22 03/06/22 History tablet,extended release 24 hr dihydroergotamine (Trudhesa) 0.725 mg intranasal PRN PRN 02/19/22 03/06/22 History headaches melatonin 10 mg tablet 20 mg PO HS PRN Insomnia 02/19/22 03/06/22 History rosuvastatin 5 mg tablet 5 mg PO DAILY 02/19/22 03/06/22 History verapamil 240 mg tablet,extended 240 mg PO BID 02/19/22 03/06/22 History release hydrocodone 5 mg-acetaminophen 325 1 - 2 tablet PO Q6H PRN pain #20 02/25/22 03/06/22 Rx mg tablet tabs apixaban 5 mg tablet (Eliquis) 5 mg PO Q12HR #60 tabs 02/26/22 03/06/22 Rx famotidine 20 mg tablet 20 mg PO Q12HR #60 tabs 02/26/22 03/06/22 Rx sulfamethoxazole 800 1 tablet PO Q12H #10 tabs 02/26/22 03/06/22 Rx mg-trimethoprim 160 mg tablet (Bactrim DS) Laboratory Tests 03/10/22 03/10/22 05:16 05:16 WBC 10.3 K/mm3 H K/mm3 (4.5-10.0) RBC 2.58 M/mm3 L M/mm3 (4.6-6.20) Hgb 7.4 g/dL L g/dL (14.0-18.0) Hct 24.1 % L % (42.0-52.0) MCV 93.4 fl fl (80-100) MCH 28.7 pg pg (26-34) MCHC 30.7 g/dl L g/dl (32-36) RDW 14.0 % % (11.5-14.5) Plt Count 537 k/mm3 H k/mm3 (150-375) MPV 9.1 fl fl (7.4-10.4) Immature Gran % (Auto) 0.4 % % (0-0.5) Neut % (Auto) 53.3 % % (45.5-73.1) Lymph % (Auto) 34.6 % % (18.3-44.2) [place] % (Auto) 7.3 % % (2.6-8.5) Eos % (Auto) 3.5 % % (0-4.4) Baso % (Auto) 0.9 % % (0.2-1.2) Lymph # (Auto) 3.57 K/mm3 H K/mm3 (0.9-3.2) [place] # (Auto) 0.8 K/mm3 H K/mm3 (0.1-0.6) Eos # (Auto) 0.4 K/mm3 H K/mm3 (0-0.3) Baso # (Auto) 0.1 K/mm3 K/mm3 (0.0-0.1) Abs Immat Gran (auto) 0.04 K/mm3 H K/mm3 (0.00-0.031) Absolute Neuts (auto) 5.5 K/mm3 K/mm3 (1.3-6.7) Absolute Nucleated RBC 0.0 K/mm3 K/mm3 (0.0-0.012) Nucleated RBC % 0.0 % % (0.0-0.2) Sodium 134 mmol/L L mmol/L (137-145) Potassium 4.0 mmol/L mmol/L (3.4-5.0) Chloride 98 mmol/L mmol/L (98-107) Carbon Dioxide 30 mmol/L mmol/L (22-30) Anion Gap 6 mmol/L L mmol/L (8-16) BUN 10 mg/dL mg/dL (9-20) Creatinine 0.90 mg/dL mg/dL (0.7-1.3) Estim Creat Clear Calc 105 ml/min ml/min Estimated GFR > 60 (59 - ) Glucose 96 mg/dL mg/dL (65-110) Calcium 8.1 mg/dL L mg/dL (8.4-10.2) Magnesium 1.9 mg/dL mg/dL (1.6-2.3) Total Bilirubin 0.4 mg/dL mg/dL (0.2-1.3) AST 21 U/L U/L (17-59) ALT 18 U/L U/L (6-50) Alkaline Phosphatase 48 U/L U/L (38-126) Total Protein 5.0 g/dL L g/dL (6.
--- NOTE | 2022-03-10 16:06 | PM.IMPN ---
Progress Note: A&P Assessment and Plan (1) Pulmonary embolism: Code(s): I26.99 - Other pulmonary embolism without acute cor pulmonale Status: Acute Assessment and Plan: Eliquis is hold for now due to hematoma development Eliquis to resume after surgery. Currently on Lovenox DVT prophylaxis dose (2) MRSA (methicillin resistant Staphylococcus aureus) infection: Code(s): A49.02 - Methicillin resistant Staphylococcus aureus infection, unspecified site Status: Acute Assessment and Plan: Pt is on iv vancomycin for MRSA infection. No active infection ongoing WBC count is improving. WBC count improving After wound VAC replacement and evaluation ,stopped iv vacnomycin 03/09. no evidence of any further infection (3) Hematoma: Code(s): T14.8XXA - Other injury of unspecified body region, initial encounter Status: Acute Assessment and Plan: Patient is seen by surgery service status post evacuation of hematoma 03/04/2022 Had intramuscular bleeding of left leg Continues to ooze and went back to OR for evaluation. Hemostasis achieved. Continue to monitor H&H wound VAC in place. Plan to wound closure with drain placement in am. Plan acute blood loss anemia continues to be lower 6.1 planned PRBC transfusion. Transfuse as needed to keep hemoglobin more than 7 DVT prophylaxis placed on Lovenox Leukocytosis worsened to 26,000 could be reactive on IV vancomycin for MRSA infection. Blood cultures x2 negative. Leukocytosis continues to improve Subjective Date/time seen: 03/10/22 16:06 Interval history: he reports more pain in his legs. no fever. he is going for wound closure in am tomorrow. h and h remains stable. Review of Systems Review of Systems: All systems reviewed & are unremarkable except as noted in HPI and below ( HPI and those items noted below) Exam Narrative: Patient alert and oriented x3 not in acute distress HEENT: eyes are clear and none icteric LUNGS: normal respiratory effort clear to auscultation bilaterally ABD: not distended soft nontender EXT left thigh with MICHELA wrap And wound VAC in place , left leg with pitting edema SKIN: nonjaundiced Neuro: grossly intact. alert and oriented x3 no focal motor deficits Objective Data Vital Signs Vital Signs: Vital Signs - 24 hr 03/09/22 20:30 03/09/22 22:00 03/10/22 00:20 Temperature 97.7 F 96.9 F L Pulse Rate 81 79 Respiratory Rate 18 19 Blood Pressure 122/67 116/59 L Pulse Oximetry 100 96 Oxygen Delivery Room Air 03/10/22 06:00 03/10/22 07:46 03/10/22 09:30 Temperature 97.7 F 96.7 F L Pulse Rate 63 63 Respiratory Rate 17 14 Blood Pressure 103/60 115/63 Pulse Oximetry 97 96 Oxygen Delivery Room Air 03/10/22 12:00 Temperature 97.8 F Pulse Rate 64 Respiratory Rate 18 Blood Pressure 114/61 Pulse Oximetry 100 Oxygen Delivery Intake/Output Intake/Output: Intake & Output 03/07/22 03/08/22 03/09/22 03/10/22 23:59 23:59 23:59 23:59 Intake Total 8890 6720 3990 2990 Output Total 5476 5700 6490 2250 Balance 3440 1020 -2500 740 Meds/Results Medications: Active Medications Generic Name Dose Route Start Last Admin Trade Name Freq PRN Reason Stop Dose Admin Acetaminophen 500 mg 03/04/22 20:42 Acetaminophen 500 Mg Tablet PO Q6H PRN Mild Pain (1-3) or Fever Alprazolam 1 mg 03/03/22 21:00 03/09/22 21:02 Alprazolam (*Crx) 0.5 Mg Tablet PO 1 mg HS FLAVIA Administration Desvenlafaxine Succinate 50 mg 03/04/22 09:00 03/10/22 09:21 Desvenlafaxine Succinate 50 Mg Tab.Er.24h PO 04/03/22 08:59 50 mg DAILY FLAVIA Administration Enoxaparin Sodium 40 mg 03/05/22 09:00 03/10/22 09:21 Enoxaparin 40 Mg/0.4 Ml Syringe SUB-Q 40 mg DAILY FLAVIA Administration Famotidine 20 mg 03/03/22 10:53 03/10/22 09:22 Famotidine 20 Mg Tablet PO 20 mg Q12HR FLAVIA Administration Fentanyl Citrate 25 mcg 03/10/22 15:28 Fentany
[2022-03-10] MEDS: HYDROmorphone HCL (*CRX) 4 MG TABLET PO (20:09)
[2022-03-10] MEDS: ALPRAZolam (*CRX) 0.5 MG TABLET 1 MG PO (20:10)
[2022-03-10] MEDS: ROSUVASTATIN 5 MG TABLET PO (20:13)
[2022-03-11] VITALS (11 sets, daily range): BP systolic 104–146; BP diastolic 58–89; PULSE 60–75; RESP 10–18; TEMP 36.2–36.7; O2SAT 94–100
[2022-03-11 05:56] LABS: Hematocrit 25.5 % (42.0-52.0); Hemoglobin 7.8 g/dL (14.0-18.0); Mean Corpuscular HGB Conc 30.6 g/dl (32-36); Mean Corpuscular Hemoglobin 28.5 pg (26-34); Mean Corpuscular Volume 93.1 fl (80-100); Mean Platelet Volume 8.7 fl (7.4-10.4); Platelet Count Result 531 k/mm3 (150-375); Red Blood Count 2.74 M/mm3 (4.6-6.20); Red Cell Distribution Width 14.3 % (11.5-14.5); White Blood Count 8.3 K/mm3 (4.5-10.0)
[2022-03-11] MEDS: HYDROmorphone HCL (*CRX) 2 MG TABLET PO ×2 (06:02→19:41)
[2022-03-11] MEDS: LACTATED RINGERS 1,000 ML 80 ML IV CONT (06:05)
[2022-03-11 06:30] LABS: Anion Gap 10 mmol/L (8-16); Blood Urea Nitrogen 9 mg/dL (9-20); Calcium 8.4 mg/dL (8.4-10.2); Carbon Dioxide 31 mmol/L (22-30); Chloride 98 mmol/L (98-107); Estimated CRCL calculation 95 ml/min; Estimated Glomerular Filt Rate > 60; Glucose 100 mg/dL (65-110); Sodium 139 mmol/L (137-145)
[2022-03-11] MEDS: FAMOTIDINE 20 MG TABLET PO ×2 (08:32→21:10)
[2022-03-11] MEDS: VERAPAMIL HCL ER 240 MG TABLET.ER PO ×2 (08:32→21:09)
[2022-03-11] MEDS: DESVENLAFAXINE SUCCINATE 50 MG TAB.ER.24H PO (08:32)
[2022-03-11] MEDS: HYDROmorphone HCL (*CRX) 4 MG TABLET PO (08:38)
[2022-03-11] MEDS: LACTATED RINGERS 1,000 ML 30 ML IV CONT ×2 (14:16→16:05)
[2022-03-11] MEDS: HYDROmorphone HCL INJ (*CRX) 1 MG/ML SYR 0.5 MG IV PUSH ×2 (14:17→21:08)
--- NOTE | 2022-03-11 14:36 | WPDHPUPDATE1 ---
History and Physical Update Update Date/Time: 03/11/22 14:36 History and Physical has been reviewed, including an updated exam of the patient. There are NO changes in the patient's condition. Risks, benefits, and alternatives have been discussed and questions answered. Patient agrees to proceed with procedure.
[2022-03-11] MEDS: ceFAZolin 2 GM/D5W 50 ML 2 GM/50 ML BAG IVPB (14:45)
--- NOTE | 2022-03-11 15:08 | PM.IMPN ---
Progress Note: A&P Assessment and Plan (1) Pulmonary embolism: Code(s): I26.99 - Other pulmonary embolism without acute cor pulmonale Status: Acute Assessment and Plan: Eliquis is hold for now due to hematoma development Eliquis to resume after surgery. Currently on Lovenox DVT prophylaxis dose 03/11/2022 interval history: Patient stats he is feeling better today, his pain in left leg is better, he denies any shortness of breath, fever or chill patient is seen by surgery service and is scheduled for left leg wound debridement today, he has history of PE and due to hematoma and scheduled surgery his Eliquis is on hold, will follow up and monitor. (2) MRSA (methicillin resistant Staphylococcus aureus) infection: Code(s): A49.02 - Methicillin resistant Staphylococcus aureus infection, unspecified site Status: Acute Assessment and Plan: Pt is on iv vancomycin for MRSA infection. No active infection ongoing WBC count is improving. WBC count improving After wound VAC replacement and evaluation ,stopped iv vacnomycin 03/09. no evidence of any further infection (3) Hematoma: Code(s): T14.8XXA - Other injury of unspecified body region, initial encounter Status: Acute Assessment and Plan: Patient is seen by surgery service status post evacuation of hematoma 03/04/2022 Had intramuscular bleeding of left leg Continues to ooze and went back to OR for evaluation. Hemostasis achieved. Continue to monitor H&H wound VAC in place. Plan to wound closure with drain placement in am. Plan acute blood loss anemia continues to be lower 6.1 planned PRBC transfusion. Transfuse as needed to keep hemoglobin more than 7 DVT prophylaxis placed on Lovenox Leukocytosis worsened to 26,000 could be reactive on IV vancomycin for MRSA infection. Blood cultures x2 negative. Leukocytosis continues to improve Subjective Date/time seen: 03/11/22 15:08 03/11/2022 interval history: Patient stats he is feeling better today, his pain in left leg is better, he denies any shortness of breath, fever or chill patient is seen by surgery service and is scheduled for left leg wound debridement today, he has history of PE and due to hematoma and scheduled surgery his Eliquis is on hold, will follow up and monitor. Review of Systems Review of Systems: All systems reviewed & are unremarkable except as noted in HPI and below ( HPI and those items noted below) Exam Narrative: Patient alert and oriented x3 not in acute distress HEENT: eyes are clear and none icteric LUNGS: normal respiratory effort clear to auscultation bilaterally ABD: not distended soft nontender EXT left thigh with MICHELA wrap And wound VAC in place , left leg with pitting edema SKIN: nonjaundiced Neuro: grossly intact. alert and oriented x3 no focal motor deficits Objective Data Vital Signs Vital Signs: Vital Signs - 24 hr 03/10/22 16:29 03/10/22 20:00 03/10/22 22:45 Temperature 97.8 F 97.4 F L Pulse Rate 69 69 79 Respiratory Rate 12 12 16 Blood Pressure 118/63 119/59 L Pulse Oximetry 100 100 94 Oxygen Delivery Room Air 03/11/22 07:00 03/11/22 08:40 03/11/22 14:31 Temperature 98.1 F 97.8 F Pulse Rate 72 60 Respiratory Rate 16 16 Blood Pressure 107/67 114/69 Pulse Oximetry 99 98 Oxygen Delivery Room Air Room Air Intake/Output Intake/Output: Intake & Output 03/08/22 03/09/22 03/10/22 03/11/22 23:59 23:59 23:59 23:59 Intake Total 7340 6655 4610 2000 Output Total 6622 6757 6053 6556 Balance 8307 -2470 -645 -5095 Meds/Results Medications: Active Medications Generic Name Dose Route Start Last Admin Trade Name Freq PRN Reason Stop Dose Admin Acetaminophen 500 mg 03/04/22 20:42 Acetaminophen 500 Mg Tablet PO Q6H PRN Mild Pain (1-3) or Fever Alprazolam 1 mg 03/03/22 21:00 03/10/22 20:10 Alprazolam (*Crx) 0.5 Mg Tablet PO 1 mg HS FLAVIA Administration Desvenlafax
[2022-03-11] MEDS: BUPIVACAINE/EPINEPHRINE 0.25% 50 ML VIAL INFILTRATE (15:46)
[2022-03-11] MEDS: fentaNYL CITRATE INJ (*CRX) 100 MCG/2 ML VIAL 25 MCG IV PUSH ×4 (16:21→16:46)
--- NOTE | 2022-03-11 16:44 | P.OP_ITS ---
Procedure Note - Detailed Date of Procedure 03/11/22 Pre-op Diagnosis Open wounds left posterior thigh Post-op Diagnosis Same Procedure Performed Delayed primary closure left upper leg wounds Surgeon Maciej Rea MD Appeals Examiner Deb Mcgregor [facility] Anesthesia General Indications Patient initially had a large left posterior thigh MRSA abscess. This was incised and drained but when he went home he had a bleeding complication with a very large hematoma. The hematoma was evacuated. A wound VAC was placed. Wound has been healing well with wound VAC therapy but patient is now taken to surgery for delayed primary closure. Findings Wound looked much better with even more granulation tissue than it did 2 days ago. A lot of the subcutaneous undermining had diminished as well. Description of Procedure Patient was taken to surgery and induced into general anesthesia. He was then placed in a prone position. The wound VAC was completely removed including all the black and white foam. The left posterior thigh was then prepped and draped. We probed the different areas of the wounds and suctioned any residual blood or serous fluid. Local anesthetic was infiltrated in the proximal posterior thigh. A 19 [place] drain was then brought out through this incision. It was positioned in the upper thigh tract and in lateral wound flaps for the mid and distal wounds. Once in position, the drain was sutured to the skin with 2-0 silk. We then began closing the longest wound which was in the middle of the posterior thigh. 3-0 Vicryl subcuticular interrupted sutures were used and loosely approximated this wound. It allowed some skin drainage. Some 2-0 nylon vertical mattress sutures were also placed to buttress this closure. The more distal posterior thigh wound was then closed with 3-0 Vicryl subcuticular interrupted suture in similar fashion. There was very little tension on this closure and no vertical mattress sutures were required. The counter incision, which was small, in the proximal lateral posterior thigh was loosely approximated with a single subcuticular 3-0 Vicryl suture. We placed the drain to bulb suction. The drain held suction well. The wounds were dressed with Xeroform gauze, fluffs ABDs and a 6 in Pavan wrap. Patient was then returned to a supine position, awakened, and extubated. He was taken to recovery in good condition. Sponge and needle counts were correct x2. Estimated Blood Loss -5.0 Urine Output 700 Drains Yes ([place]een [place] drain) Packing No Pathology None sent Complications No immediate complications Condition Stable Disposition PACU [facility] Billing Surgery - Charge Forward: Surgery Billing (Delayed primary closure left posterior thigh wounds.)
[2022-03-11] MEDS: ENOXAPARIN 40 MG/0.4 ML SYRINGE SUB-Q (17:51)
[2022-03-11] MEDS: HYDROmorphone HCL INJ (*CRX) 1 MG/ML SYR IV PUSH ×2 (18:00→23:32)
[2022-03-11] MEDS: ROSUVASTATIN 5 MG TABLET PO (21:10)
[2022-03-11] MEDS: ALPRAZolam (*CRX) 0.5 MG TABLET 1 MG PO (21:10)
[2022-03-12 03:04] VITALS: BP 113/60; PULSE 59; RESP 17; TEMP 36.5; O2SAT 98
[2022-03-12 05:59] LABS: Anion Gap 6 mmol/L (8-16); Blood Urea Nitrogen 10 mg/dL (9-20); Calcium 8.3 mg/dL (8.4-10.2); Carbon Dioxide 31 mmol/L (22-30); Chloride 96 mmol/L (98-107); Estimated CRCL calculation 117 ml/min; Estimated Glomerular Filt Rate > 60; Glucose 123 mg/dL (65-110); Potassium 4.3 mmol/L (3.4-5.0); Sodium 133 mmol/L (137-145)
[2022-03-12 06:00] LABS: Hematocrit 24.5 % (42.0-52.0); Hemoglobin 7.9 g/dL (14.0-18.0); Mean Corpuscular HGB Conc 32.2 g/dl (32-36); Mean Corpuscular Hemoglobin 29.6 pg (26-34); Mean Corpuscular Volume 91.8 fl (80-100); Mean Platelet Volume 8.8 fl (7.4-10.4); Platelet Count Result 548 k/mm3 (150-375); Red Blood Count 2.67 M/mm3 (4.6-6.20); Red Cell Distribution Width 14.1 % (11.5-14.5); White Blood Count 12.8 K/mm3 (4.5-10.0)
[2022-03-12] MEDS: VERAPAMIL HCL ER 240 MG TABLET.ER PO ×2 (10:01→20:14)
[2022-03-12] MEDS: DESVENLAFAXINE SUCCINATE 50 MG TAB.ER.24H PO (10:01)
[2022-03-12] MEDS: FAMOTIDINE 20 MG TABLET PO ×2 (10:02→20:14)
[2022-03-12] MEDS: HYDROmorphone HCL (*CRX) 4 MG TABLET PO ×2 (10:03→13:57)
--- NOTE | 2022-03-12 10:19 | WPDANESPN ---
Anes - Prog Note Post-Op Date/Time: 03/12/22 10:19 Cardiovascular status: normal Respiratory status: normal Airway patency: baseline Mental status: baseline Post-Op hydration status: normal Vital Signs: Last Vital Signs Temp 36.5 C 03/12/22 03:04 Pulse 59 L 03/12/22 03:04 Resp 17 03/12/22 03:04 BP 113/60 03/12/22 03:04 Pulse Ox 98 03/12/22 03:04 O2 Del Method Room Air 03/11/22 19:59 O2 Flow Rate 8 03/11/22 16:25 Pain Score (VAS): NESSA, patient sleeping comfortably I/O: Intake & Output 03/11/22 03/12/22 03/12/22 23:59 07:59 15:59 Intake Total 1640 4400 Output Total 1500 2575 Balance 140 1825 Laboratory Tests 03/12/22 05:22 03/12/22 05:22 03/12/22 03/12/22 05:22 05:22 WBC 12.8 H RBC 2.67 L Hgb 7.9 L Hct 24.5 L MCV 91.8 MCH 29.6 MCHC 32.2 RDW 14.1 Plt Count 548 H MPV 8.8 Sodium 133 L Potassium 4.3 Chloride 96 L Carbon Dioxide 31 H Anion Gap 6 L BUN 10 Creatinine 0.80 Estim Creat Clear Calc 117 Estimated GFR > 60 Glucose 123 H Calcium 8.3 L Post-procedural complaints: none Patient Feedback: Patient satisfied with anesthetic care.
[2022-03-12 11:04] VITALS: BP 116/62; PULSE 60; RESP 17; TEMP 36.6; O2SAT 98
--- NOTE | 2022-03-12 12:36 | PM.IMPN ---
Progress Note: A&P Assessment and Plan (1) Pulmonary embolism: Code(s): I26.99 - Other pulmonary embolism without acute cor pulmonale Status: Acute Assessment and Plan: Eliquis is hold for now due to hematoma development Eliquis to resume after surgery. Currently on Lovenox DVT prophylaxis dose 03/12/2022 interval history:? patient s/p MRSA wound left leg had developed hematoma which was evacuated, and wound VAC was placed and on 03/11 was taken to OR and had surgry for delayes primary closure, had a Patient stats he is feeling better today, his pain in left leg is better, he denies any shortness of breath, fever or chill, patient stats he has not have BM for last three days, he passing gas, will start colace and miralax, will start him on multiple vitamin to help with is would healing, he has history of PE and due to hematoma and his Eliquis is on hold, patient will be seen by he surgeon and further recommendation to follow, will follow up and monitor. (2) MRSA (methicillin resistant Staphylococcus aureus) infection: Code(s): A49.02 - Methicillin resistant Staphylococcus aureus infection, unspecified site Status: Acute Assessment and Plan: Pt is on iv vancomycin for MRSA infection. No active infection ongoing WBC count is improving. WBC count improving After wound VAC replacement and evaluation ,stopped iv vacnomycin 03/09. no evidence of any further infection (3) Hematoma: Code(s): T14.8XXA - Other injury of unspecified body region, initial encounter Status: Acute Assessment and Plan: Patient is seen by surgery service status post evacuation of hematoma 03/04/2022 Had intramuscular bleeding of left leg Continues to ooze and went back to OR for evaluation. Hemostasis achieved. Continue to monitor H&H wound VAC in place. Plan to wound closure with drain placement in am. Plan acute blood loss anemia continues to be lower 6.1 planned PRBC transfusion. Transfuse as needed to keep hemoglobin more than 7 DVT prophylaxis placed on Lovenox Leukocytosis worsened to 26,000 could be reactive on IV vancomycin for MRSA infection. Blood cultures x2 negative. Leukocytosis continues to improve Subjective Date/time seen: 03/12/22 12:36 03/12/2022 interval history:? patient s/p MRSA wound left leg had developed hematoma which was evacuated, and wound VAC was placed and on 03/11 was taken to OR and had surgry for delayes primary closure, had a Patient stats he is feeling better today, his pain in left leg is better, he denies any shortness of breath, fever or chill, patient stats he has not have BM for last three days, he passing gas, will start colace and miralax, will start him on multiple vitamin to help with is would healing, he has history of PE and due to hematoma and his Eliquis is on hold, patient will be seen by he surgeon and further recommendation to follow, will follow up and monitor. Review of Systems Review of Systems: All systems reviewed & are unremarkable except as noted in HPI and below ( HPI and those items noted below) Exam Narrative: Patient alert and oriented x3 not in acute distress HEENT: eyes are clear and none icteric LUNGS: normal respiratory effort clear to auscultation bilaterally ABD: not distended soft nontender EXT left thigh with MICHELA wrap And wound VAC in place , left leg with pitting edema SKIN: nonjaundiced Neuro: grossly intact. alert and oriented x3 no focal motor deficits Objective Data Vital Signs Vital Signs: Vital Signs - 24 hr 03/11/22 14:31 03/11/22 16:10 03/11/22 16:25 Temperature 97.8 F 97.9 F Pulse Rate 60 69 60 Respiratory Rate 16 10 L 15 Blood Pressure 114/69 139/83 104/58 L Pulse Oximetry 98 100 98 Oxygen Delivery Room Air Simple Face Mask Simple Face Mask Oxygen Flow Rate 8 8 03/11/22 16:40 03/11/22 16:55 03/11/22 17:10 Temperature Pulse Rate 60 62 60 Respiratory Rate 16 14 16 Blood Pressure
[2022-03-12] MEDS: DOCUSATE SODIUM 100 MG CAPSULE PO ×2 (13:58→20:14)
[2022-03-12] MEDS: ENOXAPARIN 40 MG/0.4 ML SYRINGE SUB-Q (13:58)
[2022-03-12] MEDS: MULTIVITAMINS THERAPEUTIC TAB (*BKC) 1 TABLET PO (13:58)
[2022-03-12 15:04] VITALS: BP 145/74; PULSE 71; RESP 17; TEMP 36.3; O2SAT 100
--- NOTE | 2022-03-12 15:48 | PM.PNGS ---
Progress Note: A&P Assessment and Plan (1) Open wound of left thigh: Code(s): S71.102A - Unspecified open wound, left thigh, initial encounter Status: Acute Assessment and Plan: Doing well postop day 1., delayed primary closure of posterior thigh wounds. No sign infection or further bleeding. Plan to discharge patient tomorrow with toe-touch weight-bearing and crutches. He will have a drain in. He will go home on 40 mg Lovenox subQ daily. He will have dressing changes daily at home. Home health has been arranged. He will not need antibiotics. Once his drain has been removed and it is clear that he will not be rebleeding, I will restart his Eliquis but it will be on hold until that time. (2) Acute blood loss anemia: Code(s): D62 - Acute posthemorrhagic anemia Status: Acute Assessment and Plan: Anemic but stable. (3) Pulmonary embolism: Code(s): I26.99 - Other pulmonary embolism without acute cor pulmonale Status: Acute Assessment and Plan: Subsegmental branches and much improved on CTA done this admission. Patient not having any chest pain. No trouble breathing. Resume Eliquis when sure that patient will not have rebleeding in his leg. 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 Patient will be on prophylactic dose of Lovenox at home until we can restart his Eliquis. Subjective Subjective Date/Time Seen: 03/12/22 15:48 Post Op day: 1 (DELAYED PRIMARY WOUND CLOSURE LEFT UPPER LEG) Patient reports: feels better, tolerating a regular diet and afebrile Exam Const: General: comfortable and no acute distress; No confusion Orientation/consciousness: patient oriented x3 and No confusion Neuro: General: patient oriented x3, no focal motor deficits and No confusion Extrem: Left lower extremity: edema and hip/thigh ( wounds look good. No skin necrosis. No signs bleeding or infection. ) Details: other ( Small amounts sanguinous drainage per NICHOLAS drain.) Psych: Affect: normal affect Insight: Good insight present (Psych) Judgement: Good judgement present (Psych) Objective Data Vital Signs Vital Signs: Vital Signs - 24 hr 03/11/22 16:10 03/11/22 16:25 03/11/22 16:40 Temperature 36.6 C Pulse Rate 69 60 60 Respiratory Rate 10 L 15 16 Blood Pressure 139/83 104/58 L 140/89 Pulse Oximetry 100 98 95 Oxygen Delivery Simple Face Mask Simple Face Mask Room Air Oxygen Flow Rate 8 8 03/11/22 16:55 03/11/22 17:10 03/11/22 19:59 Temperature Pulse Rate 62 60 60 Respiratory Rate 14 16 16 Blood Pressure 146/78 H 134/76 Pulse Oximetry 94 94 94 Oxygen Delivery Room Air Room Air Room Air Oxygen Flow Rate 03/11/22 20:55 03/11/22 21:55 03/11/22 23:04 Temperature 36.4 C L 36.6 C 36.2 C L Pulse Rate 75 71 73 Respiratory Rate 17 18 18 Blood Pressure 126/66 115/70 118/69 Pulse Oximetry 100 99 99 Oxygen Delivery Oxygen Flow Rate 03/12/22 03:04 03/12/22 08:00 03/12/22 11:04 Temperature 36.5 C 36.6 C Pulse Rate 59 L 60 Respiratory Rate 17 17 Blood Pressure 113/60 116/62 Pulse Oximetry 98 98 Oxygen Delivery Room Air Oxygen Flow Rate Intake/Output Intake/Output: Intake & Output 03/09/22 03/10/22 03/11/22 03/12/22 23:59 23:59 23:59 23:59 Intake Total 3990 5380 3690 6000 Output Total 9291 6077 5680 0908 [id number] -[id number] -643 -[id number] 4392 Meds/Results Medications: Active Medications Generic Name Dose Route Start Last Admin Trade Name Kaitlin PRN Reason Stop Dose Admin Acetaminophen 500 mg 03/04/22 20:42 Acetaminophen 500 Mg Tablet PO Q6H PRN Mild Pain (1-3) or Fever Alprazolam 1 mg 03/03/22 21:00 03/11/22 21:10 Alprazolam (*Crx) 0.5 Mg Tablet PO 1 mg HS FLAVIA Administration Desvenlafaxine Succinate 50 mg 03/04/22 09:00 03/12/22 10:01 Desvenlafaxine
[2022-03-12] MEDS: ALPRAZolam (*CRX) 0.5 MG TABLET 1 MG PO (20:13)
[2022-03-12] MEDS: MELATONIN 5 MG TABLET 20 MG PO (20:14)
[2022-03-12] MEDS: oxyCODONE/ACETAMINOPHEN (*CRX) 5-325 MG TABLET 1 TABLET PO (20:14)
[2022-03-12] MEDS: ROSUVASTATIN 5 MG TABLET PO (20:14)
[2022-03-12 21:21] VITALS: BP 104/59; PULSE 63; RESP 18; TEMP 36.6; O2SAT 100
[2022-03-13 05:54] VITALS: BP 101/49; PULSE 64; RESP 16; TEMP 36.1; O2SAT 91
[2022-03-13 06:42] LABS: Hematocrit 25.2 % (42.0-52.0); Hemoglobin 7.7 g/dL (14.0-18.0); Mean Corpuscular HGB Conc 30.6 g/dl (32-36); Mean Corpuscular Hemoglobin 28.5 pg (26-34); Mean Corpuscular Volume 93.3 fl (80-100); Mean Platelet Volume 8.7 fl (7.4-10.4); Platelet Count Result 473 k/mm3 (150-375); Red Cell Distribution Width 14.4 % (11.5-14.5); White Blood Count 8.2 K/mm3 (4.5-10.0)
[2022-03-13 07:06] LABS: Anion Gap 10 mmol/L (8-16); Blood Urea Nitrogen 10 mg/dL (9-20); Calcium 8.4 mg/dL (8.4-10.2); Carbon Dioxide 30 mmol/L (22-30); Chloride 98 mmol/L (98-107); Estimated CRCL calculation 105 ml/min; Estimated Glomerular Filt Rate > 60; Glucose 96 mg/dL (65-110); Sodium 138 mmol/L (137-145)
[2022-03-13] MEDS: DOCUSATE SODIUM 100 MG CAPSULE PO (08:36)
[2022-03-13] MEDS: ENOXAPARIN 40 MG/0.4 ML SYRINGE SUB-Q (08:36)
[2022-03-13] MEDS: VERAPAMIL HCL ER 240 MG TABLET.ER PO (08:36)
[2022-03-13] MEDS: DESVENLAFAXINE SUCCINATE 50 MG TAB.ER.24H PO (08:36)
[2022-03-13] MEDS: MULTIVITAMINS THERAPEUTIC TAB (*BKC) 1 TABLET PO (08:36)
[2022-03-13] MEDS: FAMOTIDINE 20 MG TABLET PO (08:36)
[2022-03-13] MEDS: oxyCODONE/ACETAMINOPHEN (*CRX) 5-325 MG TABLET 1 TABLET PO (08:38)
--- NOTE | 2022-03-13 10:27 | PM.DS ---
DS: Admitting Diagnosis Discharge Date 03/13/2022 Admitting Diagnosis complicated left posterior thigh abscess DS: Discharge Diagnosis Discharge Diagnosis (1) Pulmonary embolism: Code(s): I26.99 - Other pulmonary embolism without acute cor pulmonale Status: Acute Assessment and Plan: Eliquis is hold for now due to hematoma development Eliquis to resume after surgery. Currently on Lovenox DVT prophylaxis dose 03/12/2022 interval history:? patient s/p MRSA wound left leg had developed hematoma which was evacuated, and wound VAC was placed and on 03/11 was taken to OR and had surgry for delayes primary closure, had a Patient stats he is feeling better today, his pain in left leg is better, he denies any shortness of breath, fever or chill, patient stats he has not have BM for last three days, he passing gas, will start colace and miralax, will start him on multiple vitamin to help with is would healing, he has history of PE and due to hematoma and his Eliquis is on hold, patient will be seen by he surgeon and further recommendation to follow, will follow up and monitor. (2) MRSA (methicillin resistant Staphylococcus aureus) infection: Code(s): A49.02 - Methicillin resistant Staphylococcus aureus infection, unspecified site Status: Acute Assessment and Plan: Pt is on iv vancomycin for MRSA infection. No active infection ongoing WBC count is improving. WBC count improving After wound VAC replacement and evaluation ,stopped iv vacnomycin 03/09. no evidence of any further infection (3) Hematoma: Code(s): T14.8XXA - Other injury of unspecified body region, initial encounter Status: Acute Assessment and Plan: Patient is seen by surgery service status post evacuation of hematoma 03/04/2022 Had intramuscular bleeding of left leg Continues to ooze and went back to OR for evaluation. Hemostasis achieved. Continue to monitor H&H wound VAC in place. Plan to wound closure with drain placement in am. Plan acute blood loss anemia continues to be lower 6.1 planned PRBC transfusion. Transfuse as needed to keep hemoglobin more than 7 DVT prophylaxis placed on Lovenox Leukocytosis worsened to 26,000 could be reactive on IV vancomycin for MRSA infection. Blood cultures x2 negative. Leukocytosis continues to improve DS: Summary Hospital Course Reason for hospitalization: ED-HPI?This is a 51-year-old male presents to ED with left lower extremity pain.? Patient states that he had a large I and D performed in the back of his left leg at this hospital.? After that he was discharged on antibiotics that cover MRSA.? ? During his admission he was also diagnosed with a pulmonary embolism and placed on Eliquis.? He has been doing well at home over the last several days he has had increased pain and bleeding from his left leg.? He also has some new pain in his left hip and left groin.? He denies fever, chills, nausea vomiting or diarrhea.? He has been taking his medication as directed.? He has taken [place] at home with no relief. Patient is known to me as I had discharge the patient last after being treated for PE and complicated left posterior thigh abscess after I and D and was discharged on 02/26, today patient present with worsening pain in the left leg and radiologist called to inform that patient has bleeding hematoma on left and patient is on Eliquis for PE, Eliquis is hold for now as patient is seen by Dr. Rea general surgeon and plan is to explore the abscess tomorrow, and will resume Eliquis, will resume Eliquis after surgey tomorrow, patient was found to have MRSA on his left leg wound was discharged on Bactrim now hold and being treated with vancomycin, will continue to monitor and further recommendation to follow. Hospital Course: patient s/p MRSA wound? left leg had developed hematoma which was evacuated, and wound VAC was placed and on 03/11 was taken to OR and had surgry for delayes primary cl
== END 2022-03-13 12:25 | disposition home health service (06) | DRG 500 ==
LOC: ANHED 03-03 02:30 → ANH3MEDSUR 03-03 03:05
PROVIDERS: Internal Medicine; Nurse Practitioner; Surgery; Admitting Provider Internal Medicine; Emergency Provider Emergency Medicine; Visit Provider Family Medicine
PROC: 0K9R0ZZ Drainage of Left Upper Leg Muscle, Open Approach (ICD-10-PCS; principal; 2022-03-04 16:00)
PROC: 0Y3D0ZZ Control Bleeding in Left Upper Leg, Open Approach (ICD-10-PCS; principal; 2022-03-06 09:30)
PROC: 2W0PX6Z Change Pressure Dressing on Left Upper Leg (ICD-10-PCS; principal; 2022-03-09 13:00)
PROC: 2W5PX6Z Removal of Pressure Dressing on Left Upper Leg (ICD-10-PCS; principal; 2022-03-11 13:00)
DX: M79.81 Nontraumatic hematoma of soft tissue (principal); I26.99 Other pulmonary embolism without acute cor pulmonale; D62 Acute posthemorrhagic anemia; B95.62 Methicillin resistant Staphylococcus aureus infection as the cause of diseases classified elsewhere; X58.XXXA Exposure to other specified factors, initial encounter; E78.5 Hyperlipidemia, unspecified; G44.009 Cluster headache syndrome, unspecified, not intractable; F41.9 Anxiety disorder, unspecified; Z28.21 Immunization not carried out because of patient refusal; Z79.01 Long term (current) use of anticoagulants; Z79.899 Other long term (current) drug therapy; Z87.891 Personal history of nicotine dependence
CPT/HCPCS: 36415; 36430; 71275; 73701; 80048; 80053; 80202; 82565; 83605; 83735; 85014; 85018; 85025; 85027; 85610; 85730; 86850; 86900; 86901; 86920; 87040; 93971; 96374; 96376; 97116; 97162; 97530; 99285; A9270; J0131; J0330; J0690; J1100; J1170; J1650; J2250; J2270; J2370; J2405; J2543; J2704; J3010; J3370; J7030; J7050; J7120; P9016; Q9967

== ENCOUNTER 2022-03-23 09:01 | Day surgery (SDC) | payer BC, SELFPAY ==
[2022-03-23] VITALS (13 sets, daily range): BP systolic 110–152; BP diastolic 59–82; PULSE 60–83; RESP 10–18; TEMP 36.1–37.1; O2SAT 95–100; BMI 25.0
[2022-03-23] MEDS: LACTATED RINGERS 1,000 ML 30 ML IV CONT ×2 (11:35→14:47)
--- NOTE | 2022-03-23 11:42 | WPDHPUPDATE1 ---
History and Physical Update Update Date/Time: 03/23/22 11:42 History and Physical has been reviewed, including an updated exam of the patient. There are NO changes in the patient's condition. Risks, benefits, and alternatives have been discussed and questions answered. Patient agrees to proceed with procedure.
--- NOTE | 2022-03-23 11:43 | WPDANESEPPF ---
Anes - Initial Pre Proc Eval Procedure: Operation Date: 03/23/22 13:00 Proposed Procedures p Debridement Left Thigh Wound, Placement Wound Vac - Maciej Rea MD Date/Time: 03/23/22 11:43 Surgeon: Maciej Rea MD Pre Op Diagnosis: left thigh wound Patient Data Age: 51 Gender: M Height: 1.93 m Weight: 90.2 kg Allergies Allergy/AdvReac Type Severity Reaction Status Date / Time cefaclor [From Ceclor] AdvReac Diarrhea Verified 03/23/22 09:43 cefuroxime [From Ceftin] AdvReac Diarrhea Verified 03/23/22 09:43 Home Medications Medication Instructions Recorded Confirmed Type alprazolam 1 mg tablet 1 mg PO DAILY 02/19/22 03/23/22 History desvenlafaxine succinate 50 mg 50 mg PO DAILY 02/19/22 03/23/22 History tablet,extended release 24 hr dihydroergotamine (Trudhesa) 0.725 mg intranasal PRN PRN 02/19/22 03/23/22 History headaches melatonin 10 mg tablet 20 mg PO HS PRN Insomnia 02/19/22 03/23/22 History rosuvastatin 5 mg tablet 5 mg PO DAILY 02/19/22 03/23/22 History verapamil 240 mg tablet,extended 240 mg PO BID 02/19/22 03/23/22 History release famotidine 20 mg tablet 20 mg PO Q12HR #60 tabs 02/26/22 03/23/22 Rx enoxaparin 40 mg/0.4 mL 40 mg (0.4 mL) subcut DAILY #10 mL 03/12/22 03/23/22 Rx subcutaneous syringe (Lovenox) docusate sodium 100 mg capsule 100 mg PO Q12HR PRN constipation 03/13/22 03/23/22 Rx #30 caps multivitamin with folic acid 400 1 tablet PO QAM #90 tabs 03/13/22 03/23/22 Rx mcg tablet (Thera) sulfamethoxazole 800 1 tablet PO Q12H #10 tabs 03/19/22 03/23/22 Rx mg-trimethoprim 160 mg tablet (Bactrim DS) oxycodone-acetaminophen 5 mg-325 1 - 2 tablet PO Q6H PRN pain #30 03/20/22 03/23/22 Rx mg tablet (Percocet) tabs cyproheptadine 4 mg tablet 16 mg PO BID 03/23/22 03/23/22 History Patient hx anesthesia problems: none Family hx anesthesia problems: none Results Review: All pre-operative results and documents have been reviewed as part of the pre-operative evaluation. [facility] Past Medical History Medical History Anxiety Borderline hyperlipidemia Cluster headache Pulmonary embolism Surgical History Surgical History H/O hernia repair S/P orchiectomy Status post incision and drainage I&D Thigh abscess on 02/20/22, Delayed primary closure of left upper leg wounds on 03/03/22 Family History Family History Father Lung cancer Sibling Lung cancer Social History Social History Social History: The patient continues to smoke 1 pack a cigarettes a day. He lives with his . He has 1 biologic child and has 1 step child. He works for [employer] He denies any alcohol or any other illicit drugs. Code status full code Smoking packs per day: 1 Smoking cigarettes per day: 20.0 Years smoked: 35 Smoking pack-years: 35.00 Smoking status: Former smoker Tobacco type: cigarettes Second hand tobacco smoke exposure: Yes Smoking end date: 02/19/22 Alcohol intake: never Substance use: never Substance use type: marijuana Living arrangements: with family Gender identity (if verbalized by the patient): Male Sexual Orientation (if Verbalized by the Patient): Straight or Heterosexual Spiritual care concerns: No Anes - Eval Final PreProcedure Day of Procedure 03/23/22 11:43 Patient weight: normal Heart: regular rate and rhythm Lungs: clear to auscultation Airway: Mallampati scale class II Neurological: alert and oriented Last oral intake: >/= 8 hours ASA classification: III Emergent: no Anesthetic plan: proceed Anesthesia type and monitoring: general ETT and standard monitoring Results Review: All pre-operative results and documents have been reviewed as pa
--- NOTE | 2022-03-23 12:11 | PM.IMHP ---
H&P: HPI History of Present Illness Date/Time: 03/23/22 12:11 Chief Complaint: Left leg wound Narrative: Patient is a 51-year-old man who developed a large MRSA abscess after an insect bite to his left posterior thigh. After incision and drainage of this, he developed a large hematoma from bleeding into the wound while at home. Incisions were made and the hematoma was evacuated. He eventually was in the hospital with a wound VAC for a few days and then on 03/11/2022 he had delayed primary closure of the leg wounds over a drain. The drain was removed at his office visit on 03/16/2022. Unfortunately, when he was seen back again in the office on 03/19/2022, he had more bleeding and had developed a liquified hematoma with separation and subcutaneous pocket development. He has an open wound in the mid thigh that was planned to heal secondarily but now with the large subcutaneous pocket extending most of the length of the posterior thigh, he is taken back to surgery to open the wound adequately to apply wound VAC to cover the entire pocket and continue wound VAC therapy as an outpatient. He will be stay overnight to monitor for bleeding and then hopefully home tomorrow with wound VAC therapy to continue as an outpatient. When patient initially admitted with his insect bite, he was also noted to have left chest pain and a left-sided pulmonary embolism. He has never been documented to have an DVT. He has been on subcutaneous Lovenox daily at home but his Eliquis has been held. Review of Systems Review of Systems: All systems reviewed & are unremarkable except as noted in HPI and below (HPI and those items noted below) Constitutional: Constitutional: Denies chills and Denies fever(s) Cardiovascular: Cardiovascular: Denies chest pain, Denies diaphoresis, Denies dyspnea and Denies paroxysmal nocturnal dyspnea Respiratory: Respiratory: Denies chest congestion, Denies cough and Denies dyspnea Integumentary/Breasts: Skin/Breast: Denies lesions and Denies rash PMFSH Past Medical History Medical History Anxiety Borderline hyperlipidemia Cluster headache Pulmonary embolism Surgical History Surgical History H/O hernia repair S/P orchiectomy Status post incision and drainage I&D Thigh abscess on 02/20/22, Delayed primary closure of left upper leg wounds on 03/03/22 Family History Family History Father Lung cancer Sibling Lung cancer Social History Social History Social History: The patient continues to smoke 1 pack a cigarettes a day. He lives with his . He has 1 biologic child and has 1 step child. He works for [employer] He denies any alcohol or any other illicit drugs. Code status full code Smoking packs per day: 1 Smoking cigarettes per day: 20.0 Years smoked: 35 Smoking pack-years: 35.00 Smoking status: Former smoker Tobacco type: cigarettes Second hand tobacco smoke exposure: Yes Smoking end date: 02/19/22 Alcohol intake: never Substance use: never Substance use type: marijuana Living arrangements: with family Gender identity (if verbalized by the patient): Male Sexual Orientation (if Verbalized by the Patient): Straight or Heterosexual Spiritual care concerns: No Meds Home Medications and Allergies Home Medications Medication Instructions Recorded Confirmed Type alprazolam 1 mg tablet 1 mg PO DAILY 02/19/22 03/23/22 History desvenlafaxine succinate 50 mg 50 mg PO DAILY 02/19/22 03/23/22 History tablet,extended release 24 hr dihydroergotamine (Trudhesa) 0.725 mg intranasal PRN PRN 02/19/22 03/23/22 History headaches melatonin 10 mg tablet 20 mg PO HS PRN Insomnia 02/19/22 03/23/22 History rosuvastatin
[2022-03-23] MEDS: fentaNYL CITRATE INJ (*CRX) 100 MCG/2 ML VIAL 50 MCG IV PUSH (12:18)
[2022-03-23] MEDS: ceFAZolin 2 GM/D5W 50 ML 2 GM/50 ML BAG IVPB (12:48)
[2022-03-23] MEDS: fentaNYL CITRATE INJ (*CRX) 100 MCG/2 ML VIAL 25 MCG IV PUSH ×8 (14:07→14:29)
--- NOTE | 2022-03-23 15:47 | ADMGEN ---
This patient, Kory Smith, was admitted to 3 Med Surg Room 301-01. Report received from KAITLYN Tom. Patient/family oriented to hospital policies and general routines including ID bracelet, bed and alarms, visiting hours, pain management, procedures, bathroom and other care routines, personal items, smoking policy, room service/diet, and visiting hours. Information on how to activate the Rapid Response Team has been discussed. Patient/Family are encouraged to report perceived risks to care and to ask questions if they do not understand what they are told or what they should do.
[2022-03-23] MEDS: LACTATED RINGERS 1,000 ML 80 ML IV CONT (16:00)
[2022-03-23] MEDS: oxyCODONE/ACETAMINOPHEN (*CRX) 5-325 MG TABLET 2 TABLET PO (16:00)
[2022-03-23] MEDS: HYDROmorphone HCL INJ (*CRX) 1 MG/ML SYR IV PUSH ×2 (16:01→21:29)
--- NOTE | 2022-03-23 16:35 | P.OP_ITS ---
Procedure Note - Detailed Date of Procedure 03/23/22 Pre-op Diagnosis left thigh wound with recurrent bleeding Post-op Diagnosis Same Procedure Performed Opening of right posterior leg wound, evacuated hematoma, placement wound VAC. Surgeon Maciej Rea MD Airport Representative Lady KEITH, Kelechi KEITH Anesthesia General Indications Patient has had recurrent problems with bleeding and hematoma of a large wound the back of his right leg. He had the wound closed with delayed primary closure over a week ago. He had further bleeding into the wound with development of a hematoma and a large subcutaneous space. We have been unable to evacuate the hematoma or place wound VAC with out an adequate open wound to proceed. He is taken to surgery now for opening of the existing wounds, some of which were closed at the last operating room visit, evacuating hematoma and placement of wound VAC. Jaylin Samaniego, wound care specialty nurse, was present and placed the wound VAC. Findings Extensive subcutaneous pocket including most of the posterior thigh. After we opened the wounds adequately from proximal to distal, the resulting wound measured 19 cm x 8.5 cm with a depth of 3.5 cm. Description of Procedure Patient was taken to surgery and induced into general anesthesia. He was then turned in prone position so that the back of the left leg was exposed. The wound was prepped and draped. I 1st probed the wound with my finger in found a substantial amount of clot and old blood. I then reopened the wound in the midportion of the leg. There was a large pocket proximal to this and I extended this incision proximally so that the upper aspect of the wound could be seen directly with minimal tunneling. I then extended the incision distally so that it extended to the more distal incision and opened that as well. The wound dimensions at this point or as noted above. There was a lot of bleeding from the skin and subcutaneous. Cautery was used mostly for this but also 2 vials of Surgiflo and some hematuria. Eventually the wound was hemostatic. We then placed an Adaptic over the exposed biceps femoris muscle. Wound VAC was applied with black foam with attachment to the lateral thigh. Once negative pressure was applied, the wound VAC compressed the wound as expected and no leaks were noted. We then wrapped 6 in Pavan wrap around the thigh. The patient was re turned to a supine position. He was awakened, extubated and then taken to recovery in good condition. Sponge needle counts were correct x2. Estimated Blood Loss -10 Drains Yes (Wound VAC) Packing No Pathology None sent Complications No immediate complications Condition Stable Disposition PACU [facility] Billing Surgery - Charge Forward: Surgery Billing (Reopening posterior thigh wound, evacuation hematoma, placement of wound VAC)
[2022-03-23] MEDS: CYPROHEPTADINE HCL 4 MG TABLET 16 MG PO (19:11)
[2022-03-23] MEDS: oxyCODONE/ACETAMINOPHEN (*CRX) 5-325 MG TABLET 1 TABLET PO (20:12)
[2022-03-23] MEDS: FAMOTIDINE 20 MG TABLET PO (20:14)
[2022-03-23] MEDS: SULFAMETHOXAZOLE/TRIMETHOPRIM 800/160 MG DS TABLET 1 TAB PO (20:14)
[2022-03-23] MEDS: VERAPAMIL HCL ER 240 MG TABLET.ER PO (20:14)
[2022-03-23] MEDS: ROSUVASTATIN 5 MG TABLET PO (20:14)
[2022-03-24] MEDS: oxyCODONE/ACETAMINOPHEN (*CRX) 5-325 MG TABLET 1 TABLET PO ×2 (00:20→11:35)
[2022-03-24 06:00] VITALS: BP 99/62; PULSE 61; RESP 14; TEMP 36.6; O2SAT 95
[2022-03-24 06:36] LABS: Hematocrit 28.5 % (42.0-52.0); Hemoglobin 8.9 g/dL (14.0-18.0); Mean Corpuscular HGB Conc 31.2 g/dl (32-36); Mean Corpuscular Hemoglobin 28.5 pg (26-34); Mean Corpuscular Volume 91.3 fl (80-100); Mean Platelet Volume 9.4 fl (7.4-10.4); Platelet Count Result 329 k/mm3 (150-375); Red Blood Count 3.12 M/mm3 (4.6-6.20); Red Cell Distribution Width 13.8 % (11.5-14.5); White Blood Count 8.2 K/mm3 (4.5-10.0)
[2022-03-24 06:55] LABS: Anion Gap 6 mmol/L (8-16); Blood Urea Nitrogen 12 mg/dL (9-20); Calcium 8.5 mg/dL (8.4-10.2); Carbon Dioxide 26 mmol/L (22-30); Chloride 105 mmol/L (98-107); Estimated CRCL calculation 105 ml/min; Estimated Glomerular Filt Rate > 60; Glucose 115 mg/dL (65-110); Potassium 4.1 mmol/L (3.4-5.0); Sodium 137 mmol/L (137-145)
[2022-03-24] MEDS: ALPRAZolam (*CRX) 0.5 MG TABLET 1 MG PO (08:39)
[2022-03-24] MEDS: HYDROmorphone HCL INJ (*CRX) 1 MG/ML SYR IV PUSH (08:39)
[2022-03-24] MEDS: SULFAMETHOXAZOLE/TRIMETHOPRIM 800/160 MG DS TABLET 1 TAB PO (08:53)
[2022-03-24] MEDS: FAMOTIDINE 20 MG TABLET PO (08:53)
[2022-03-24] MEDS: MULTIVITAMINS THERAPEUTIC TAB (*BKC) 1 TABLET PO (08:53)
[2022-03-24] MEDS: CYPROHEPTADINE HCL 4 MG TABLET 16 MG PO (08:53)
[2022-03-24] MEDS: DESVENLAFAXINE SUCCINATE 50 MG TAB.ER.24H PO (08:53)
[2022-03-24] MEDS: VERAPAMIL HCL ER 240 MG TABLET.ER PO (09:44)
--- NOTE | 2022-03-24 10:37 | PM.DS ---
DS: Admitting Diagnosis Discharge Date 03/24/2022 Admitting Diagnosis Open wound of left thigh Pulmonary embolism Hematoma DS: Discharge Diagnosis Discharge Diagnosis (1) Open wound of left thigh: Code(s): S71.102A - Unspecified open wound, left thigh, initial encounter Status: Acute (2) Pulmonary embolism: Code(s): I26.99 - Other pulmonary embolism without acute cor pulmonale Status: Acute Assessment and Plan: Full anticoagulation has been on hold due to the hematoma, although he has been on prophylactic dose of Lovenox 40 mg subQ daily at home. (3) Hematoma: Code(s): T14.8XXA - Other injury of unspecified body region, initial encounter Status: Acute DS: Summary Hospital Course Reason for hospitalization: This is a 51-year-old man who developed a large MRSA abscess after an insect bite to his left posterior thigh. After incision and drainage of this, he developed a large hematoma from bleeding into the wound while at home. Incisions were made and the hematoma was evacuated. He eventually was in the hospital with a wound VAC for a few days and then on 03/11/2022 he had delayed primary closure of the leg wounds over a drain. The drain was removed in the office on 03/16/2022. Unfortunately, when he was seen back again in the office on 03/19/2022 he had more bleeding and had developed a liquified hematoma with separation and subcutaneous pocket development. He has an open wound in the mid thigh that was planned to heal secondarily but now with the large subcutaneous pocket extending most of the length of the posterior thigh, decision was made to take him back to surgery to open the wound adequately and apply a wound VAC for treatment. Hospital Course: He was taken to the OR on 03/23/2022 for opening of a right posterior leg wound, evacuated hematoma, and placement of a wound VAC, by Dr. Rea. He was found to have an extensive subcutaneous pocket including most of the posterior thigh. The resulting wound measured 19 by 8.5 x 3.5 cm. The patient was admitted postoperatively. Care coordination and wound care have worked on approval for the wound VAC therapy at home. His pain is controlled with oral analgesics. He is tolerating a diet and doing well today. Patient is stable for discharge today with outpatient wound VAC therapy and home health for dressing changes. We will plan to see the patient back in the wound clinic on Wednesday for his initial wound VAC dressing change. Status at Discharge Functional status at discharge: independent ambulation Overall status at discharge: patient is progressing back to baseline Time Spent with Patient Time attestation: Total time spent providing and/or coordinating discharge services: Time spent: Greater than 30 minutes Exam Const: General: comfortable, no acute distress and awake Orientation/consciousness: patient oriented x3 Skin: Other: Left posterior thigh wound VAC dressing dry and intact Psych: Thought process: Normal thought process present Insight: Good insight present (Psych) DS: Data Data Completed and Pending Labs on day of discharge: Labs from last 24 hours 03/24/22 03/24/22 05:39 05:39 WBC 8.2 RBC 3.12 L Hgb 8.9 L Hct 28.5 L MCV 91.3 MCH 28.5 MCHC 31.2 L RDW 13.8 Plt Count 329 MPV 9.4 Sodium 137 Potassium 4.1 Chloride 105 Carbon Dioxide 26 Anion Gap 6 L BUN 12 Creatinine 0.90 Estim Creat Clear Calc 105 Estimated GFR > 60 Glucose 115 H Calcium 8.5 Procedures/Treatments: Procedures Operation Date: 03/23/22 13:00 Actual Procedure Side Surgeon p Debridement Left Thigh Wound, Placement Wound Vac Left Maciej Rea MD Discharge Plan Discharge Patient Disposition: Home, Self-Care Discharge Instructions: Per Care Coordination, patient to resume home health services with [facility] for care home services. ([phone]). RESTART your
== END 2022-03-24 12:30 | disposition home or self-care (01) ==
LOC: ANHSURGERY 11:22 → ANH3MEDSUR 15:19
PROVIDERS: Visit Provider Surgery
PROC: (CPT 10140; principal; 2022-03-23 13:00)
DX: L76.32 Postprocedural hematoma of skin and subcutaneous tissue following other procedure (principal); S70.362D Insect bite (nonvenomous), left thigh, subsequent encounter; W57.XXXD Bitten or stung by nonvenomous insect and other nonvenomous arthropods, subsequent encounter; B95.62 Methicillin resistant Staphylococcus aureus infection as the cause of diseases classified elsewhere; Y83.8 Other surgical procedures as the cause of abnormal reaction of the patient, or of later complication, without mention of misadventure at the time of the procedure; Z86.711 Personal history of pulmonary embolism; F17.210 Nicotine dependence, cigarettes, uncomplicated; F12.90 Cannabis use, unspecified, uncomplicated; Z79.01 Long term (current) use of anticoagulants; Z79.891 Long term (current) use of opiate analgesic
CPT/HCPCS: 10140; 36415; 80048; 85027; A9270; J0330; J0690; J1100; J1170; J2250; J2405; J2704; J3010; J7120

== ENCOUNTER 2022-04-08 10:38 | Emergency (ER) | payer BC, SELFPAY ==
[2022-04-08] VITALS (13 sets, daily range): BP systolic 111–130; BP diastolic 65–86; PULSE 53–74; RESP 13–20; TEMP 36.2; O2SAT 95–100
--- NOTE | ~2022-04-08 | XR_ITS ---
EXAMINATION: XR chest 2V DATE: 04/08/2022 11:19 INDICATION: Left chest pain. TECHNIQUE: Frontal and lateral views of the chest were obtained on 3 radiographs. COMPARISON: Chest CT 03/03/2022 FINDINGS: The chest demonstrates clear lungs without pneumonia, pleural effusion, or pneumothorax. Th e heart size is normal. IMPRESSION: 1. No acute cardiopulmonary disease. Reviewed, dictated and finalized at location A.
--- NOTE | ~2022-04-08 | CT_ITS ---
EXAMINATION: CTA chest PE protocol DATE: 04/08/2022 12:24 INDICATION: Left-sided chest pain. TECHNIQUE: Computed tomography (CT) pulmonary angiogram of the chest was performed with 100 mL Omnipa que-350 intravenous contrast. Additional 3D reconstructions utilizing coronal maximum intensity proje ction (MIP) were performed. Automated exposure control and iterative reconstruction technique were em ployed. The dose-length product was 468.70 mGy-cm. COMPARISON: 03/03/2022 FINDINGS: Excellent contrast opacification of the pulmonary arteries. There is mild streak artifact from dense contrast in the superior vena cava and right atrium. Mild motion artifact at the left lower lung zone which does not significantly limit evaluation. No pulmonary embolism. Mild emphysema. No pneumonia, pulmonary edema, pleural effusion or pneumothorax. Heart size is normal. No pericardial effusion. Tho racic aorta is normal in caliber with no dissection. No pathologically enlarged thoracic lymphadenopa thy. Diffuse mild esophageal wall thickening suggestive of esophagitis which could be related to refl ux. Mild to moderate thoracic spondylosis with chronic minimal anterior wedging of a a few mid and lo wer thoracic vertebral bodies. IMPRESSION: 1. No pulmonary embolism or other acute cardiopulmonary disease. 2. Mild emphysema. 3. Diffuse mild esophageal wall thickening suspicious for esophagitis which could be related to infec tion or reflux. Reviewed, dictated and finalized at location A. IMPRESSION: 1. No pulmonary embolism or other acute cardiopulmonary disease. 2. Mild emphysema. 3. Diffuse mild esophageal wall thickening suspicious for esophagitis which cou ld be related to infection or reflux.
--- NOTE | 2022-04-08 10:40 | ECG_ITS ---
Measurements Intervals [place] Rate: 58 P: 55 NC: 140 QRS: 47 QRSD: 100 T: 55 QT: 412 QTc: 406 Interpretive Statements SINUS BRADYCARDIA COMPARED TO ECG 02/19/2022 09:48:37 SINUS BRADYCARDIA NOW PRESENT Electronically Signed On 04-08-2022 13:14:34 CDT by Robyn Fischer M.D.
[2022-04-08 11:06] LABS: Basophils Absolute Auto 0.1 K/mm3 (0.0-0.1); Basophils Percent Auto 0.5 % (0.2-1.2); Eosinophils Absolute Auto 0.1 K/mm3 (0-0.3); Eosinophils Percent Auto 1.1 % (0-4.4); Hematocrit 39.4 % (42.0-52.0); Immature Granulocyte Absolute 0.04 K/mm3 (0.00-0.031); Immature Granulocyte Percent A 0.3 % (0-0.5); Lymphocytes Percent Auto 26.2 % (18.3-44.2); Mean Corpuscular HGB Conc 30.5 g/dl (32-36); Mean Corpuscular Volume 88.7 fl (80-100); Mean Platelet Volume 8.6 fl (7.4-10.4); Monocytes Absolute Auto 0.5 K/mm3 (0.1-0.6); Monocytes Percent Auto 4.1 % (2.6-8.5); Neutrophils Absolute Auto 8.3 K/mm3 (1.3-6.7); Neutrophils Percent Auto 67.8 % (45.5-73.1); Platelet Count Result 455 k/mm3 (150-375); Red Blood Count 4.44 M/mm3 (4.6-6.20); Red Cell Distribution Width 13.2 % (11.5-14.5); White Blood Count 12.2 K/mm3 (4.5-10.0)
[2022-04-08 11:16] LABS: Alanine Aminotransferase 29 U/L (6-50); Albumin Level 4.4 g/dL (3.5-5.1); Alkaline Phosphatase 83 U/L (38-126); Anion Gap 13 mmol/L (8-16); Aspartate Amino Transferase 28 U/L (17-59); Bilirubin,Total 0.2 mg/dL (0.2-1.3); Blood Urea Nitrogen 12 mg/dL (9-20); Calcium 9.1 mg/dL (8.4-10.2); Carbon Dioxide 28 mmol/L (22-30); Chloride 102 mmol/L (98-107); Estimated CRCL calculation 105 ml/min; Estimated Glomerular Filt Rate > 60; Glucose 102 mg/dL (65-110); Lipase 91 U/L (23-300); Potassium 4.2 mmol/L (3.4-5.0); Sodium 143 mmol/L (137-145)
[2022-04-08 11:19] LABS: INR 1.1; Prothrombin Time 13.9 Seconds (11.1-14.7)
[2022-04-08 11:20] LABS: Partial Thromboplastin Time 40.2 SECONDS (22.3-36.8)
[2022-04-08 11:28] LABS: Troponin I < 0.012 ng/mL (0.000-0.034)
--- NOTE | 2022-04-08 12:11 | ED.CHESTPAIN ---
HPI - Chest Pain General Chief Complaint: Chest Pain Stated Complaint: chest pain - hx of PE Time Seen by Provider: 04/08/22 11:54 History of Present Illness HPI narrative: 51-year-old male with history of recent MRSA abscesses and pulmonary embolisms current taking Eliquis presents to the emergency department for concern of worsening PE symptoms. Patient has had recurrent issues with MRSA abscesses and did have multiple surgical revisions by Dr. Rea. Patient currently is taking Eliquis and does have a wound VAC in place. Wound VAC is being cared for by home health. Patient states that he has been having worsening left-sided chest pain that is sharp and worsened with movement. Patient states the symptoms were consistent with his initial PE symptoms. Patient denies any fevers. Patient felt that the leg wound was improving Related Data Home Medications Medication Instructions Recorded Confirmed alprazolam 1 mg tablet 1 mg PO DAILY 02/19/22 03/23/22 desvenlafaxine succinate 50 mg 50 mg PO DAILY 02/19/22 03/23/22 tablet,extended release 24 hr dihydroergotamine (Trudhesa) 0.725 mg intranasal PRN PRN 02/19/22 03/23/22 headaches melatonin 10 mg tablet 20 mg PO HS PRN Insomnia 02/19/22 03/23/22 rosuvastatin 5 mg tablet 5 mg PO DAILY 02/19/22 03/23/22 verapamil 240 mg tablet,extended 240 mg PO BID 02/19/22 03/23/22 release cyproheptadine 4 mg tablet 16 mg PO BID 03/23/22 03/23/22 Allergies Allergy/AdvReac Type Severity Reaction Status Date / Time cefaclor [From Ceclor] AdvReac Diarrhea Verified 04/08/22 11:44 cefuroxime [From Ceftin] AdvReac Diarrhea Verified 04/08/22 11:44 Review of Systems Review of Systems: CONSTITUTIONAL: Denies fever, chills, or sweats. EYES: Denies visual changes, redness, or discharge. ENT: Denies rhinorrhea, congestion, sore throat, or otalgia. CARDIOVASCULAR: See HPI RESPIRATORY: See HPI GASTROINTESTINAL: Denies abdominal pain, nausea, vomiting, or diarrhea. GENITOURINARY: Denies dysuria or hematuria. SKIN: Wound VAC on left posterior arm MUSCULOSKELETAL: Denies back pain, joint pain, or myalgia. NEUROLOGIC: Denies headache, numbness, or weakness. [facility] Past Medical History Medical History Anxiety Borderline hyperlipidemia Cluster headache Pulmonary embolism Surgical History Surgical History H/O hernia repair S/P orchiectomy Status post incision and drainage I&D Thigh abscess on 02/20/22, Delayed primary closure of left upper leg wounds on 03/03/22 Family History Family History Father Lung cancer Sibling Lung cancer Social History Social History Social History: The patient continues to smoke 1 pack a cigarettes a day. He lives with his . He has 1 biologic child and has 1 step child. He works for [employer] He denies any alcohol or any other illicit drugs. Code status full code Smoking packs per day: 1 Smoking cigarettes per day: 20.0 Years smoked: 35 Smoking pack-years: 35.00 Smoking status: Former smoker Tobacco type: cigarettes Second hand tobacco smoke exposure: Yes Smoking end date: 02/19/22 Alcohol intake: never Substance use: current Substance use type: marijuana Gender identity (if verbalized by the patient): Male Sexual Orientation (if Verbalized by the Patient): Straight or Heterosexual Spiritual care concerns: No Exam Narrative: APPEARANCE: Well appearing, no pain, no distress, well-nourished. HEAD: normocephalic, atraumatic. EYES: PERRLA/EOMI, conjunctivae clear. NOSE: Normal no drainage THROAT: Pharynx clear, no exudate. NECK: Supple. No adenopathy, no masses. RESPIRATORY: Airway patent, respirations nonlabored. Clear to auscultation bilaterally, no
[2022-04-08] MEDS: HYDROmorphone HCL INJ (*CRX) 1 MG/ML SYR IV PUSH (13:21)
[2022-04-08 14:23] LABS: Troponin I 0.015 ng/mL (0.000-0.034)
== END 2022-04-08 15:03 | disposition home or self-care (01) ==
PROVIDERS: Emergency Medicine; Emergency Provider Emergency Medicine; PCP Family Medicine
DX: R07.89 Other chest pain (principal); F41.9 Anxiety disorder, unspecified
CPT/HCPCS: 36415; 71046; 71275; 80053; 83690; 84484; 85025; 85610; 85730; 93005; 96374; 99284; J1170; Q9967

== ENCOUNTER 2022-06-01 07:28 | Outpatient (RCR) | payer BC, SELFPAY ==
[2022-03-23 09:12] VITALS: BMI 25.0
--- NOTE | 2022-04-01 06:46 | WPDCN ---
Assessment and Plan Assessment and plan (1) Open wound of left thigh: Code(s): S71.102A - Unspecified open wound, left thigh, initial encounter Status: Acute Assessment and Plan: Wound continues to improve. Now with good granulation tissue. Some undermining. They would like to continue with the VAC dressing. Possible STSG in the future. Today's visit including review of records, seeing patient, and charting was 45 minutes. Today we had a lengthy discussion with him and his family about her options. Went over the risks, benefits, alternatives each. Answered all their questions. They would like proceed as above. (2) Abscess of left thigh: Code(s): L02.416 - Cutaneous abscess of left lower limb Status: Acute (3) Pulmonary embolism: Code(s): I26.99 - Other pulmonary embolism without acute cor pulmonale Status: Acute Assessment and Plan: Management per PCP / Dr. Rea. Asymptomatic today. (4) Hematoma: Code(s): T14.8XXA - Other injury of unspecified body region, initial encounter Status: Acute Assessment and Plan: No evidence current hematoma. (5) MRSA (methicillin resistant Staphylococcus aureus) infection: Code(s): A49.02 - Methicillin resistant Staphylococcus aureus infection, unspecified site Status: Acute Assessment and Plan: No active signs of infection. (6) Insect bite of thigh, left, infected: Code(s): S70.362A - Insect bite (nonvenomous), left thigh, initial encounter; L08.9 - Local infection of the skin and subcutaneous tissue, unspecified; W57.XXXA - Bitten or stung by nonvenomous insect and other nonvenomous arthropods, initial encounter Status: Acute HPI Data of Consult Date/Time: 04/01/22 06:46 Requesting Physician: Maciej Rea MD Primary Care Provider: PHYSICIAN NOT ON STAFF Consult Narrative Reason for consult: Left posterior thigh wound. Narrative: Kory Smith is a 51 year old male With a significantly complicated history. On weekend he believes he was bitten by an insect on the back of his left thigh. Subsequently proceeded the emergency room on 02/19/2022. He was having significant edema in his leg as well as chest pain. On that date CTA was completed which showed possible sub segmental pulmonary embolism in the left upper and lower lobes. This was limited by artifact. He also had cellulitis of his left thigh by CT scan. At that time and ultrasound was completed with no evidence of DVT. He was admitted anticoagulated for pulmonary embolism. His left posterior thigh progressed and by ultrasound on 02/20/2022 he was identified as having an abscess. 02/21/2022 Dr. Rea took him to the operating room for drainage of large left posterior thigh abscess which extended between the biceps femoris. Cultures were positive for MRSA. After discharge he returned with hematoma of posterior left thigh. 03/03/2022 CTA showed minimal residual embolism in the anterior basilar segment of the left lower lobe. He had a lower extremity CT scan that identified a large hematoma. On 03/04/2022 he went to the operating room with Dr. Rea with intramuscular bleeding /left leg hematoma. He was estimated 1,000 cc of blood loss and transfusion required. 03/06/2022 he returned to the operating room for dressing change and placement of wound VAC. This occurred again on 03/09/2022. On 03/10/2022 had a venous Doppler which showed no evidence of DVT. 03/11/2022 return to the operating room for delayed primary closure of the left posterior thigh wound. He was seen in clinic with Dr. Rea on 03/16/2022 and the drain was removed. At that time he was having between 44 and 87 cc of drainage per day. He returned on 03/19/2022 with redness of the thigh and drainage. It was determined that he had a recurrent hematoma. He proceed to the operating room on 03/23/2022 to evacuate the hematoma in place a wound VAC.
== END 2022-06-21 23:59 | disposition home or self-care (01) ==
LOC: ANHWOC 07:28
PROVIDERS: Referring Provider Surgery Plastic and Reconstructive Surgery; Visit Provider Surgery
DX: S71.102D Unspecified open wound, left thigh, subsequent encounter (principal); T14.8XXA Other injury of unspecified body region, initial encounter
CPT/HCPCS: 97606; 99213; 99214; A9270; G0463

== ENCOUNTER 2022-06-22 12:31 | Outpatient (RCR) | payer BC, SELFPAY ==
[2022-06-22 00:02] VITALS: BMI 25.0
== END 2022-07-17 15:15 | disposition home or self-care (01) ==
LOC: ANHWOC 12:31
PROVIDERS: PCP Family Medicine; Referring Provider Surgery Plastic and Reconstructive Surgery; Visit Provider Surgery
DX: S71.102D Unspecified open wound, left thigh, subsequent encounter (principal)
CPT/HCPCS: 99212; G0463

== ENCOUNTER 2023-05-17 06:36 | Outpatient (CLI) | payer BC, SELFPAY ==
--- NOTE | ~2023-05-17 | CT_ITS ---
CT Scan of the Chest without Contrast: Clinical Indication: Cough Technique: Contiguous sections were acquired throughout the chest without intravenous contrast. Dose reduction technique was used on this scan by utilizing automated exposure control and iterative recon struction technique. The dose-length product (DLP) was 261.89 mGy-cm. COMPARISON: 04/08/2022 Findings: There is no evidence of any significant mediastinal, hilar or axillary lymphadenopathy. The mediastin al soft tissues appear normal. There is no evidence of pleural or pericardial effusion. The lungs are clear. No pulmonary nodules or infiltrates are noted. Images through the upper abdomen reveal no abnormalities. Impression: No significant abnormalities seen. Reviewed, dictated and finalized at location . 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
== END 2023-05-17 06:37 | disposition home or self-care (01) ==
DX: R05.9 Cough, unspecified (principal)
CPT/HCPCS: 71250

== ENCOUNTER 2024-01-22 08:56 | Outpatient (CLI) | payer OTHER, SELFPAY ==
[2024-01-22 09:53] LABS: Basophils Absolute Auto 0.1 K/mm3 (0.0-0.1); Basophils Percent Auto 0.8 % (0.2-1.2); Eosinophils Absolute Auto 0.2 K/mm3 (0-0.3); Eosinophils Percent Auto 2.1 % (0-4.4); Hematocrit 43.2 % (42.0-52.0); Hemoglobin 13.9 g/dL (14.0-18.0); Immature Granulocyte Absolute 0.02 K/mm3 (0.00-0.031); Immature Granulocyte Percent A 0.2 % (0-0.5); Lymphocytes Absolute Auto 3.03 K/mm3 (0.9-3.2); Lymphocytes Percent Auto 35.6 % (18.3-44.2); Mean Corpuscular HGB Conc 32.2 g/dl (32-36); Mean Corpuscular Hemoglobin 29.1 pg (26-34); Mean Corpuscular Volume 90.6 fl (80-100); Mean Platelet Volume 10.1 fl (7.4-10.4); Monocytes Absolute Auto 0.7 K/mm3 (0.1-0.6); Monocytes Percent Auto 7.6 % (2.6-8.5); Neutrophils Absolute Auto 4.6 K/mm3 (1.3-6.7); Neutrophils Percent Auto 53.7 % (45.5-73.1); Platelet Count Result 270 k/mm3 (150-375); Red Blood Count 4.77 M/mm3 (4.6-6.20); Red Cell Distribution Width 13.7 % (11.5-14.5); White Blood Count 8.5 K/mm3 (4.5-10.0)
[2024-01-22 10:01] LABS: Hemoglobin A1C 5.7 % (<5.7)
[2024-01-22 10:03] LABS: Alanine Aminotransferase 17 U/L (6-50); Albumin Level 4.3 g/dL (3.5-5.1); Alkaline Phosphatase 59 U/L (38-126); Anion Gap 9 mmol/L (4-12); Aspartate Amino Transferase 19 U/L (17-59); Bilirubin,Total 0.6 mg/dL (0.2-1.3); Blood Urea Nitrogen 14 mg/dL (9-20); Calcium 9.2 mg/dL (8.4-10.2); Carbon Dioxide 28 mmol/L (22-30); Chloride 101 mmol/L (98-107); Cholesterol 120 mg/dL (0-200); Estimated Glomerular Filt Rate > 60; Glucose 91 mg/dL (65-110); HDL Direct 51 mg/dL; Potassium 4.7 mmol/L (3.4-5.0); Sodium 138 mmol/L (137-145); Triglycerides 47 mg/dL (<150)
[2024-01-22 10:14] LABS: LDL Cholesterol Direct 58 mg/dL
[2024-01-22 10:33] LABS: Prostate Specific Antigen 0.4 ng/mL (< OR = 4.0)
[2024-01-22 12:42] LABS: Vitamin D 25 Hydroxy > 126.0 ng/mL
[2024-01-26 09:18] LABS: Testosterone Total 276 ng/dL (250-1100)
== END 2024-01-22 08:57 | disposition home or self-care (01) ==
DX: Z00.00 Encounter for general adult medical examination without abnormal findings (principal)
CPT/HCPCS: 36415; 80053; 80061; 82306; 83036; 84153; 84403; 84443; 85025

== ENCOUNTER 2024-04-15 08:35 | Outpatient (CLI) | payer OTHER, SELFPAY ==
[2024-04-15 09:31] LABS: Basophils Absolute Auto 0.1 K/mm3 (0.0-0.1); Basophils Percent Auto 0.9 % (0.2-1.2); Eosinophils Absolute Auto 0.2 K/mm3 (0-0.3); Eosinophils Percent Auto 2.5 % (0-4.4); Hematocrit 43.7 % (42.0-52.0); Hemoglobin 13.9 g/dL (14.0-18.0); Immature Granulocyte Absolute 0.01 K/mm3 (0.00-0.031); Immature Granulocyte Percent A 0.1 % (0-0.5); Lymphocytes Absolute Auto 2.99 K/mm3 (0.9-3.2); Lymphocytes Percent Auto 37.2 % (18.3-44.2); Mean Corpuscular HGB Conc 31.8 g/dl (32-36); Mean Corpuscular Hemoglobin 28.5 pg (26-34); Mean Corpuscular Volume 89.5 fl (80-100); Mean Platelet Volume 9.8 fl (7.4-10.4); Monocytes Absolute Auto 0.6 K/mm3 (0.1-0.6); Monocytes Percent Auto 7.6 % (2.6-8.5); Neutrophils Absolute Auto 4.2 K/mm3 (1.3-6.7); Neutrophils Percent Auto 51.7 % (45.5-73.1); Platelet Count Result 332 k/mm3 (150-375); Red Blood Count 4.88 M/mm3 (4.6-6.20); Red Cell Distribution Width 13.4 % (11.5-14.5)
[2024-04-15 09:49] LABS: Transferrin 242 mg/dL (206-381)
[2024-04-15 09:53] LABS: Iron 87 ug/dL (49-181)
[2024-04-15 10:06] LABS: Percent Iron Saturation 27 % (20-50)
[2024-04-15 10:47] LABS: Folic Acid 14.2 ng/mL (2.76->20)
== END 2024-04-15 08:36 | disposition home or self-care (01) ==
DX: D64.9 Anemia, unspecified (principal)
CPT/HCPCS: 36415; 82607; 82728; 82746; 83540; 83550; 84466; 85025

== ENCOUNTER 2024-05-18 06:58 | Outpatient (CLI) | payer OTHER, SELFPAY ==
--- NOTE | ~2024-05-18 | MR_ITS ---
MRI of the cervical spine Clinical History: Spinal stenosis Technique: Axial T2-weighted and gradient images, and sagittal T1-weighted, T2-weighted, and STIR carol ges were acquired. Findings: There is no fracture or subluxation of the cervical spine. Vertebral bodies maintain normal height and alignment. No bone marrow signal abnormality seen. At C2-C3, C3-C4, C4-C5, C5-C6, there is no significant disc bulge or herniation. No spinal canal sten osis, cord compression, or neural foraminal narrowing at these levels. There are minimal facet joint degenerative changes at these levels. At C6-C7, there is mild degenerative disc narrowing with mild disc osteophyte complex. There is bilat eral neural foraminal narrowing with bilateral facet arthropathy. No canal stenosis or cord compressi on. No abnormal signal seen in the spinal cord. Paravertebral soft tissues are unremarkable. Impression: Mild degenerative spondylosis at C6-C7, as above. Reviewed, dictated and finalized at [facility]. 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
== END 2024-05-18 06:59 | disposition home or self-care (01) ==
PROVIDERS: Visit Provider Orthopaedic Surgery
DX: M48.02 Spinal stenosis, cervical region (principal); M47.22 Other spondylosis with radiculopathy, cervical region
CPT/HCPCS: 72141

== ENCOUNTER 2024-05-25 08:04 | Outpatient (CLI) | payer OTHER, SELFPAY ==
--- NOTE | ~2024-05-25 | CT_ITS ---
CT Scan of the Chest without Contrast: Clinical Indication: Lung nodule Technique: Contiguous sections were acquired throughout the chest without intravenous contrast. Dose reduction technique was used on this scan by utilizing automated exposure control and iterative recon struction technique. The dose-length product (DLP) was 114.58 mGy-cm. COMPARISON: 05/17/2023 Findings: There is no evidence of any significant mediastinal, hilar or axillary lymphadenopathy. The mediastin al soft tissues appear normal. There is no evidence of pleural or pericardial effusion. The lungs are clear. No pulmonary nodules or infiltrates are noted. Images through the upper abdomen reveal no abnormalities. Impression: Lung RADS 1: Negative. 12 month follow-up screening CT advised. Reviewed, dictated and finalized at location . E CLEANER Impression: Lung RADS 1: Negative. 12 month follow-up screening CT advised.
== END 2024-05-25 08:05 | disposition home or self-care (01) ==
LOC: ANHIMG 08:06
DX: R91.1 Solitary pulmonary nodule (principal)
CPT/HCPCS: 71250

== ENCOUNTER 2024-07-15 09:49 | Outpatient (CLI) | payer OTHER, SELFPAY ==
--- OUTSIDE RECORDS SUMMARY | 2024-07-15 09:59 | XMS_ITS | Referral Summary ---
Author Organization [facility] Address [address] [place] [address] Care Team Providers Care Manager Strategy Name Role Phone Sachin Alaniz DO Primary Care Provider [phone] Source Comments [facility],non-owned Affiliates and Associated Physician Practices is amultiple site organization consisting of ambulatory clinics and hospital sitesin [place], [place], [place] and [place]. This disclosure is being madepursuant to the Care Everywhere program and may not contain all information available regarding this patient. Last updated 18.[facility] [employer] Allergies Active Allergy Reactions Criticality Noted Date Comments Cefaclor Diarrhea Medium 07/07/2008 Cefuroxime Diarrhea Medium 07/07/2008 Cephalexin Nausea and/or Vomiting 05/03/2019 Valproic Acid Itching,Swelling High 03/07/2019 Active Problems No known active problems Social History Tobacco Use Types Packs/Day Years Used Date Smoking Tobacco: Never Assessed Sex and Gender Information Value Date Recorded Sex Assigned at Male 03/21/2024 11:16 AM CDT Gender Identity Male 03/21/2024 11:16 AM CDT Sexual Orientation Straight 03/21/2024 11 :16 AM CDT Plan of Treatment Not on file Care Teams Manager Strategy Relationship Specialty Start Date End Date Sachin Alaniz DO [address] [place] [address] PCP - General Family Medicine 03/22/24
--- OUTSIDE RECORDS SUMMARY | 2024-07-15 09:59 | XMS_ITS | Clinical Summary ---
Author Organization [facility] Address [address] [place] [address] Phone Care Team Providers Care Tire Repairer Name Role Phone Sachin Alaniz DO Primary Care Provide r SandeeVy Marlene AUTOMATIC LINE SET UP MECHANIC, CANNON FIRE DIRECTION SPECIALIST Unavailable Allergies No known active allergies Medications ALBUTEROL IN take by inhalation. Active albuterol (PROVENTIL, VENTOLIN) (2.5 MG/3ML) 0.083% Nebulizer Soln 2.5 mg by Nebulization route every 4 hours as needed. Active ALPRAZolam (XANAX) 1 MG Tablet Take 1 mg by mouth. Active buPROPion SR (WELLBUTRIN SR) 150 MG TABLET SR 12 HR Take 150 mg by mouth 2 times daily. Active ACETAMINOPHEN-CA FF-BUTALBITAL 50-325-40 MG Capsule Take 1 Capsule by mouth every 4 hours as needed. Active butorphanol (STADOL) 10 MG/ML Solution 1 [place] by Nasal route every 4 hours as needed. Active Desvenlafaxine Succinate 50 MG TABLET SR 24 HR Take by mouth. Active diclofenac (VOLTAREN) 75 MG Tablet Delayed Response Take 75 mg by mouth 3 times daily. Active dicyclomine (BENTYL) 20 MG Tablet Take 20 mg by mouth every 6 hours as needed. Active rosuvastatin (CRESTOR) 5 MG Tablet Take 5 mg by mouth daily. Active verapamil CR (VERELAN) 240 MG CAPSULE SR 24 HR Take 240 mg by mouth in the morning and at bedtime. Active OXYGEN CONCENTRATOR 15 L by Does not apply route. 15l per for 10 mins-cluster headaches Active montelukast (Singulair) 10 MG Tablet Take 10 mg by mouth every evening. Active Dihydroergotamin e Mesylate HFA (Trudhesa) 0.725 MG/ACT Aerosol Solution by Nasal route. Acti ve Active Problems Problem Noted Date Diagnosed Date Mild obstructive sleep apnea 08/26/2023 Personal history of tobacco use 08/26/2023 Resolved Problems Problem Noted Date Diagnosed Date Resolved Date Snoring 08/26/2023 12/23/2023 Excessive daytime sleepiness 08/26/2023 12/23/2023 Encounters Date Type Department Care Team Description 06/27/2024 8:00 AM BOTTLE INSPECTOR Office Visit [facility] - Pulmonology & Sleep Medicine - [place] [address] [place] [address] Vy Ignacio APRN, COLE Mild obstructive sleep apnea (Primary Dx); Personal history of tobacco use Discharge Disposition: Discharged to home or Selfcare 06/25/2024 Travel from Last 3 Months Social History Tobacco Use Types Packs/Day Years Used Date Smoking Tobacco: Every Day Cigarettes Smokeless Tobacco: Never Tobacco Cessation:Ready to Q uit: Not Asked; Counseling Given: Not Answered Alcohol Use Standard Drinks/Week Comments Not Currently 0 (1 standard drink = 0.6 oz pur e alcohol) Sexually Active Control Partners Comments Yes Sex and Gender Information Value Date Recorded Sex Assigned at Not on file Legal Sex Male 8:14 AM CDT Gender Identity Male 05/03/2023 8:43 AM BOTTLE INSPECTOR Sexual Orientation Straight 05/03/2023 8: 43 AM BOTTLE INSPECTOR Last Filed Vital Signs Vital Sign Reading Time Taken Comments Blood Pressure 108/62 06/27/2024 8:01 AM BOTTLE INSPECTOR Pulse 73 06/27/2024 8:01 AM BOTTLE INSPECTOR Temperature 36.9 ??C (98.4 ??F) 06/27/2024 8:01 AM CS T Respiratory Rate 20 06/27/2024 8:01 AM BOTTLE INSPECTOR Oxygen Saturation 99% 06/27/2024 8:01 AM BOTTLE INSPECTOR Inhaled Oxygen Concentration - - Weight 93.1 kg (205 lb 4.8 oz) 06/27/2024 8:01 A M BOTTLE INSPECTOR Height 193 cm (6' 4 ) 06/27/2024 8:01 AM BOTTLE INSPECTOR Body Mass Index 24.99 06/27/2024 8:01 AM BOTTLE INSPECTOR Plan of Treatment Upcoming Encounters Date Type Department Care Team (Late st Contact Info) Description 12/26/2024 8:00 AM CDT Office Visit [facility] - Pul[facility]ology & [facility] Medicine [facility] [address] [place] [address] Vy Ignacio APRN, CANNON FIRE DIRECTION SPECIALIST [address] [address] Health Maintenance Due Date Last Done Comments Hepatitis C Virus (HCV) Screening 1970 Pneumococcal Immunization (50+ years) (1 of 2 - PCV) 1989 Hepatitis B Immunization (3 of 3 - 19+ 3-dose series) 11/05/2017 09/10/2017, 08/27/2015, 07/24/2015 Cologuard 2020 Immunochemical Fecal Occult Blood 2020 Influenza Immunization (#1) 02/13/202402/13, 04/22/2022, 04/25/2020, Additional history exists Colonoscopy 11/17/2032 11/17/2022 Colorectal Cancer Screening 11/17/2032 Respiratory Syncytial Virus (RSV) Immunization (Adult) (1 - 1-dose 75+ series) 2045 11/17/2022 TdaP Immunization Completed 03/19/2007 DTaP/Tdap/Td Immunization Discontinued 09/10/2017, 11/2006 Zoster Immunization Completed 06/26/2023, SARS-COV-2 Immunization Completed 04/28/20 24, 03/12/2023, 05/08/2022, Additional history exists Meningococcal Immunization (ACWY) Aged Out No longer eligible based on patient's age to complete this topic Rotavirus Immunization Aged Out No lo nger eligible based on patient's age to complete this topic Insurance [facility] Care Teams Tire Repairer Relationship Specialty Start Date End Date Sachin Alaniz DO [address] [facility] [address] [place] [address] PCP - General Family Medicine 04/19/23 Vy Ignacio APRN, CANNON FIRE DIRECTION SPECIALIST [address] [facility] [address] [place] [address] Nurse Practitioner Advanced Practice Nurse 08/26/23
--- OUTSIDE RECORDS SUMMARY | 2024-07-15 09:59 | XMS_ITS | Patient Health Summary ---
Author Organization [facility] Address [address] [place] [address] Care Team Providers Care Cyber Policy And Strategy Planner Name Role Phone Sachin Alaniz DO Primary Care Provider [phone] [phone] Note from [facility],non-owned Affiliates and Associated Physician Practices is amultiple site organization consisting of ambulatory clinics and hospital sitesin [place], [place], [place] and [place]. This disclosure is being madepursuant to the Care Everywhere program and may not contain all information available regarding this patient. Last updated 18.[facility] Allergies * Cefaclor(Diarrhea) -Medium Criticality * Cefuroxime(Diarrhea) -Medium Criticality * Cephalexin(Nausea and/or Vomiting) * Valproic Acid(Itching,Swelling) -High Criticality Active Problems No known active problems Social History Tobacco Use Types Packs/Day Years Used Date Smoking Tobacco: Never Assessed Sex and Gender Information Value Date Recorded Sex Assigned at Male 03/21/2024 11:16 AM CDT Gender Identity Male 03/21/2024 11:16 AM CDT Sexual Orientation Straight 03/21/2024 11 :16 AM CDT Procedures * DE PUNCH BX SKIN SINGLE LESION(Performed 03/22/2024) Performed for Neoplasm of uncertain behavior of skin * DERMATOPATHOLOGY(Performed 03/22/2024) Performed for Neoplasm of uncertain behavior of skin Results * DE PUNCH BX SKIN SINGLE LESION (03/22/2024 9:12 AM CDT) Narrative Inocencio Frederick MD - 03/22/2024 9:12 AM CDT Inocencio Frederick MD ? 03/22/2024 ??9:13 AM Risks, benefits and alternatives to punch biopsy were discussed with the patient. Verbal consent was obtained. Location: right forearm Punch biopsy: 4mm Skin prep: Alcohol Anesthesia: 1% lidocaine with epi Closure: 4-0 nylon suture Dressing and wound care discussed. Patient agrees to phone call for results and message if not available. Inocencio Frederick MD Inocencio Frederick MD PROCEDURE/MINOR SURG ICAL ORDERABLES * DERMATOPATHOLOGY (03/22/2024 12:00 AM CDT) Case Report Dermatopathology Report ? Case: [id number] ? Authorizing Provider: ??Inocencio Frederick MD ?Collected: ? 03/22/2024 12:00 AM ? Ordering Location: ? [facility] - ??Received: ?03/22/2024 11:30 AM ? Dermatology ? Pathologist: ? Brenda Palumbo MD ? Specimen: ?Skin, right forearm ? 1:54 PM CDT DERMATOPATHOLOGY LABORATORY Final Diagnosis Specimen A. 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 The specimen consists of a punch biopsy measuring 3x3x5 mm. Jar 0. 1:54 PM T DERMATOPATHOLOGY LABORATORY Microscopic Description Specimen A. SKIN, right forearm: Within the dermis, there is an aggregate containing uniform basaloid cells and ghost cells in which only shadows of nuclei remain. Additional deeper sections were obtained and reviewed. 1:54 PM T DERMATOPATHOLOGY LABORATORY Disclaimer An external and internal positive and negative controls are appropriate for the histochemical, immunohistochemical and immunofluorescence stain(s) in this case (if any), except where stated explicitly. The performance characteristics of the stain(s) cited in this report were developed and its performance characteristic determined by the Dermatopathology Laboratory at [facility], directed by Dr. Zenaida Saini. These tests need not be, and therefore are not, approved by the [place] Food and Drug Administration. The tests are used for clinical purposes. Billing Codes Specimen Charges Stain Charges 97653 1 1:54 PM CDT DERMATOPATHOLOGY LABORATORY Embedded Images 1:54 PM CDT DERMATOPATHOLOGY LABORATORY Pathology/Cytolog y TISSUE SPECIMEN FROM SKIN / Unknown 03/22/2024 03/22/2024 11:30 AM CDT Inocencio Frederick MD LAB - PATHOLOGY/CYTO LOGY ORDERABLES DERMATOPATHOLOGY LABORATORY [facility] - Department of Dermatology [address], [address] [phone] Care Teams Cyber Policy And Strategy Planner Relationship Specialty Start Date End Date Sachin Alaniz DO [address] [place] [address] PCP - General Family Medicine 03/22/24
--- OUTSIDE RECORDS SUMMARY | 2024-07-15 09:59 | XMS_ITS | Referral Summary ---
Author Organization [facility] Address [facility] [place] [address] Care Team Providers Care Planner Internship Name Role Phone Sachin Alaniz DO Primary Care Provider [phone] Allergies Active Allergy Reactions Criticality Noted Date Comments Cefaclor Diarrhea Medium 07/07/2008 Cefuroxime Axetil Diarrhea Medium 07/07/2008 Cephalexin Nausea And Vomiting 05/03/2019 Divalproex Itching,Swelling High 03/07/2019 Medications ALPRAZolam (XANAX) 1 mg tablet TAKE 1 TABLET BY MOUTH EVERY NIGHT NEEDED FOR SLEEPLESSNESS 06/08/20 22 Active butalbital-acetami nophen-caffeine (ESGIC) 50-325-40 mg per tablet TAKE 1 TABLET BY MOUTH EVERY 6 HOURS NEEDED FOR MIGRAINE HEADACHE 06/08/20 22 Active butorphanol (STADOL) 10 mg/mL nasal spray USE 1 SPRAY IN ONE NOSTRIL EVERY 3 TO 4 HOURS NEEDED FOR MODERATE TO SEVERE PAIN 06/23/19 23 Active desvenlafaxine ER 50 mg 24 hr tablet Take 1 tablet (50 mg total) by mouth daily 05/18/20 22 Active dihydroergotamine (DHE 45) 1 mg/mL injection INJECT 1ML EVERY 8 HOURS FOR A MAX OF 2 DAYS 05/08/20 22 Active Trudhesa 0.725 mg/pump act. (4 mg/mL) nasal spray 06/01/20 22 Active fluticasone propionate (FLONASE) 50 mcg/actuation nasal spray 2 sprays daily 06/12/20 22 Active hydrocortisone 2.5 % cream 06/12/20 22 Active Nicotrol NS 10 mg/mL spray,non-aerosol USE 1 SPRAY IN EACH NOSTRIL UP TO FIVE TIMES AN HOUR 05/04/20 22 Active ondansetron ODT (ZOFRAN-ODT) 4 mg disintegrating tablet DISSOLVE 1 TABLET BY MOUTH EVERY 6 HOURS NEEDED FOR NAUSEA 06/23/19 23 Active oxyCODONE-acetamin ophen (PERCOCET) 5-325 mg per tablet Take by mouth every 6 (six) hours as needed for pain 04/10/20 22 Active Nurtec ODT tablet,disintegrat ing DISSOLVE 1 TABLET BY MOUTH EVERY DAY NEEDED FOR MIGRAINE 06/08/20 22 Active rosuvastatin (CRESTOR) 5 mg tablet Take 1 tablet (5 mg total) by mouth daily 06/22/19 23 Active sulfamethoxazole-t rimethoprim (BACTRIM DS) 800-160 mg per tablet Take 1 tablet by mouth every 12 (twelve) hours 05/23/20 22 Active verapamil SR (CALAN SR) 240 mg CR tablet Take 1 tablet (240 mg total) by mouth 2 (two) times a day 04/22/20 22 Active cyproheptadine (PERIACTIN) 4 mg tablet cyproheptadine 4 mg tablet TAKE 4 TABLETS BY MOUTH TWICE DAILY Active polyethylene glycol (GoLYTELY) 236-22.74-6.74 -5.86 gram solution Drink 2L(half of jug)at 6pm night before procedure and 2L(remainder of jug)at 6:45 am day of test FOLLOW INSTRUCTIONS SENT BY OUR OFFICE 4000 mL 09/18/19 23 Active Additional Information Patient not taking.Reported on 12/17/2022 lidocaine (LIDODERM) 5 % APPLY 1 PATCH TO PAINFUL AREA FOR UP TO 12 HOURS A DAY 12/05/19 23 Active montelukast (SINGULAIR) 10 mg tablet Take 1 tablet (10 mg total) by mouth daily Active diphenhydramine HCl (BENADRYL ALLERGY ORAL) Take by mouth Ac tive loratadine (ALAVERT ORAL) Take by mouth A ctive benzonatate (TESSALON) 200 mg capsuleIndications :Bronchitis Take 1 capsule (200 mg total) by mouth 3 (three) times a day as needed for cough 30 capsule 08/29/19 24 Active methylPREDNISolone (Medrol, Arnulfo,) 4 mg DosepackIndication s:Bronchitis follow package directions 1 packet 08/29/19 24 Active Active Problems No known active problems Social History Tobacco Use Types Packs/Day Years Used Date Smoking Tobacco: Every Day Cigarettes Tobacco Cessation:Ready to Q uit: Not Asked; Counseling Given: Not Answered AUDIT-C Answer Date Recorded Q1: How often do you have a drink containing alcohol? Never 11/17/2022 Q2: How many drinks containi ng alcohol do you have on a typical day when you are drinking? Patient does not drink Q3: How often do you have si x or more drinks on one occasion? 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 Gender Identity Male 08/28/2023 11:21 PM CDT Sexual Orientation Straight 08/28/2023 11 :21 PM CDT Last Filed Vital Signs Vital Sign Reading Time Taken Comments Blood Pressure 121/70 08/29/2023 9:28 AM CDT Pulse 77 08/29/2023 9:28 AM CDT Temperature 37.2 ??C (98.9 ??F) 08/29/2023 9:28 AM CD T Respiratory Rate 18 08/29/2023 9:28 AM CDT Oxygen Saturation 96% 08/29/2023 9:28 AM CDT Inhaled Oxygen Concentration - - Weight 86.5 kg (190 lb 11.2 oz) 08/29/2023 9:28 AM CDT Height 193 cm (6' 4 ) 08/29/2023 9:28 AM CDT Body Mass Index 23.21 08/29/2023 9:28 AM CDT Plan of Treatment Not on file Procedures Procedure Name Priority Date/Time Associated Diagnosis Comments COLONOSCOPY 11/17/2022 11:45 AM CDT from Last 3 Months or Most Recently Relevant to Health Maintenance Results * COLONOSCOPY (11/17/2022 11:45 AM CDT) Anatomical Region Laterality Modality Other Narrative Procedure Note Padma Renee MD - 11/17/2022 11:45 AM CDT [facility] Patient Name: Kory Smith Procedure Date: 11/17/2022 11:45 AM Date of : 1970 Admit Type: Outpatient Age: 52 Gender: Male Attending MD: Padma Renee M.D. Room: [facility] ENDOSCOPY ROOM 4 Note Status: Finalized Procedure: Colonoscopy Indications: Screening for colorectal malignant neoplasm Referring MD: Providers: Padma Renee M.D. Medicines: Monitored Anesthesia Care Complications: No immediate complications. Estimated Blood Loss: Estimated blood loss: none. Procedure: Pre-Anesthesia Assessment: - Immediately prior to administration ofmedications, the patient was re-assessed for adequacy to receive sedatives. - The risks and benefits of the procedure and the sedation options and risks were discussed with the patient. All questions were answered and informed consent was obtained. The benefits, risks and alternatives of theprocedure and sedation were discussed and informed consentwas obtained. All questions were answered. Please referto the signed informed consent document in the medical record. The scope was passed under direct vision.The CF [id number] endoscope was introduced through the anus and advanced to the cecum, identified by appendiceal orifice and ileocecal valve. The colonoscopy was performed without difficulty. The patient tolerated the procedure well. The qualityof the bowel preparation was good. The bowelpreparation used was GoLYTELY. Findings: The perianal and digital rectal examinations were normal. An 8 mm polyp was found in the ascending colon. The polyp wassessile. The polyp was removed with a cold snare. Resection and retrieval were complete. To close a defect after polypectomy, one hemostatic clipwas successfully placed (MR conditional). There was no bleeding at theend of the procedure. A 5 mm polyp was found in the transverse colon. The polyp wassessile. The polyp was removed with a cold snare. Resection and retrieval were complete. A few small-mouthed diverticula were found in the sigmoid colon. Internal hemorrhoids were found during retroflexion. The hemorrhoids were small. Impression: - Two colonic polyps removed and retrieved - Sigmoid diverticulosis coli - Small internal hemorrhoids Recommendation: - Await pathology results. Electronically Signed by Padma Renee M.D. Padma Renee M.D. 11/17/2022 1:28:13 PM . Number of Addenda: 0 Note Initiated On: 11/17/2022 11:45 AM Recognized by the [employer] for promoting quality in endoscopy Padma Renee MD ENDOSCOPY PROCEDURES F inal Result from Last 3 Months or Most Recently Relevant to Health Maintenance Insurance [facility] [employer] Advance Directives For more information, please contact: [phone] * Full Code (Latest Code Status on File) Date Activated Date Inactivated Comments 11/17/2022 12:14 PM 11/17/2022 5:59 PM Care Teams Planner Internship Relationship Specialty Start Date End Date Sachin Alaniz DO [address] [place] [address] PCP - General Family Medicine 11/17/22
--- OUTSIDE RECORDS SUMMARY | 2024-07-15 09:59 | XMS_ITS | Clinical Summary ---
Author Organization [facility] Address [address] [place] [address] Care Team Providers Care Automotive Hardware Engineer Name Role Phone Sachin Alaniz DO Primary Care Provider [phone] Source Comments [facility],non-owned Affiliates and Associated Physician Practices is amultiple site organization consisting of ambulatory clinics and hospital sitesin [place], [place], [place] and [place]. This disclosure is being madepursuant to the Care Everywhere program and may not contain all information available regarding this patient. Last updated 18.[facility] [employer] Allergies Active Allergy Reactions Criticality Noted Date [...] 11 :16 AM CDT Plan of Treatment Health Maintenance Due Date Last Done Comments COLOGUARD (AGES 45-75) - COL ON CA SCREENING [address] COLONOGRAPHY - COLON CA SCREENING 1970 FIT - COLON CA SCREENING 1970 FLEX SIG - COLON CA SCREENING 1970 LIPID TESTING 1970 HIV SCREENING 1985 HEPATITIS C SCREENING 06/27/1988 DTAP/TDAP/TD VACCINES (1 - Tdap) 1989 HEPATITIS B VACCINE (1 of 3 - 19+ 3-dose series) 1989 PNEUMOCOCCAL VACCINE 50+ (1 of 1 - PCV) 2020 ZOSTER VACCINE (1 of 2) 2020 COVID-19 VACCINE (1 - 2023-2 5 season) 2024 INFLUENZA VACCINE (#1) 2024 04/25/2020 DEPRESSION SCREENING 06/14/2024 COLONOSCOPY - COLON CA SCREENING 11/17/2032 11/18/19 23 Colorectal Cancer Screening 11/17/2032 HIB VACCINE Aged Out No longer eligi ble based on patient's age to complete this topic HPV VACCINE Aged Out No longer eligi ble based on patient's age to complete this topic MENINGOCOCCAL (Group B) VACCINE Aged Out No longer eligible based on patient's age to complete this topic MENINGOCOCCAL VACCINE Aged Out No suzy vini eligible based on patient's age to complete this topic PNEUMOCOCCAL VACCINE Aged Out No long er eligible based on patient's age to complete this topic Care Teams Automotive Hardware Engineer Relationship Specialty Start Date End Date Sachin Alaniz DO [address] [place] [address] PCP - General Family Medicine 03/22/24
--- OUTSIDE RECORDS SUMMARY | 2024-07-15 09:59 | XMS_ITS | Clinical Summary ---
Author Organization [facility] Address [facility] [place] [address] Care Team Providers Care Specialist Physician Name Role Phone Sachin Alaniz DO Primary Care Provider [phone] [phone] Allergies Active Allergy Reactions Criticality Noted Date [...] Active Active Problems No known active problems Surgical History Surgery Date Site/Laterality Comments INCISION AND DRAINAGE RHIZOTOMY W/ RADIOFREQUENCY ABLATION FISTULA REPAIR HERNIA REPAIR Family History Medical History Relation Name Comments Liver cancer Brother Lung cancer Father Lung cancer Maternal Grandmother Lung cancer Paternal Grandfather Relation Name Status Comments Brother Father Maternal Grandmother Paternal Grandfather Social History Tobacco Use Types Packs/Day Years [...] on file 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 Gender Identity Male 08/28/2023 11:21 PM CDT Sexual Orientation Straight 08/28/2023 11 :21 PM CDT Obstetrics History Last Filed Vital Signs Vital Sign Reading [...] 08/29/2023 9:28 AM CDT Plan of Treatment Health Maintenance Due Date Last Done Comments Depression Screening 1970 Hepatitis C Screening 1970 Prostate Cancer Screening-PSA 1970 Pneumococcal vaccine <65 (1 of 2 - PCV) 1976 Regular Well Visit/Exam 18-64 1988 Zoster Vaccine (1 of 2) 2020 Covid-19 Vaccine (2023-2 5 season) 2024 05/08/2022, 04/05/2021, 09/19/2020, Additional history exists Influenza Vaccine (#1) 2024 , 04/05/2021, 04/25/2020, Additional history exists DTaP/Tdap/Td Vaccine (3 - Td or Tdap) 09/11/2027 09/10/2017, 03/19/2007 Colon Cancer Screening-Colonoscopy 11/17/20322022 Procedures Procedure Name Priority Date/Time Associated Diagnosis [...] Male Attending MD: Padma Renee M.D. Room: [facility] ENDOSCOPY ROOM 4 Note Status: Finalized Procedure: [...] scope was passed under direct vision.The CF [id number] endoscope was introduced through the anus and [...] On: 11/17/2022 11:45 AM Recognized by the [employer] for promoting quality in endoscopy Padma Renee MD ENDOSCOPY PROCEDURES F inal Result from Last 3 Months or Most Recently Relevant to Health Maintenance Insurance [employer] [place] [employer] [place] Advance Directives For more information, please contact: [phone] * Full Code (Latest Code Status on File) Date Activated Date Inactivated Comments 11/17/2022 12:14 PM 11/17/2022 5:59 PM Care Teams Specialist Physician Relationship Specialty Start Date End Date Sachin Alaniz DO [address] [facility] [address] [place] [address] PCP - General Family Medicine 11/17/22
--- OUTSIDE RECORDS SUMMARY | 2024-07-15 10:00 | XMS_ITS | Data Portability ---
Author Organization [place] [facility], Main Office Address [address] [place] [address] Assessment Encounter Date Assessment Date Assessment LastModified by Organization Details LastModified Time 12/10/2022 12/10/2022 Patient returns trochanteric bursitis bilaterally. He got good relief from the shot just do not last. He he is tender laterally has pain to palpation manipulation. He has some pain in the sacroiliac region although less than the trochanters. He would like injections again this is done with 20 mg Kenalog 4 cc 1% lidocaine in the bursal regions , right and left. He will continue with anti-inflammator y medication at home I will see him back in a month for follow-up and reassess if this does not continue to improve may have to consider an MRI scan although it seems mostly that he just has trochanteric bursitis. His hip motion is reasonably good. [email or web address] Not available 12/10/2022 10:56:12 01/28/2023 01/28/2023 Patient presents foot pain Left. He is tender over the left foot has pain to palpation manipulation mainly over the ball of the foot. He has has good motion of his toes he does not really have much irritability about the 2nd toe and he does not have a lot of symptoms consistent with a neuroma. Most of it appears to be metatarsalgia. Will place him in insert with a metatarsal pad. Her prescription drug management will try Voltaren for pain and inflammation. I will see him back in 6 weeks after he has worn the insert for a while and see if this helps if not we will reassess at that point. Patient has trochanteric pain as well this seems to be of returning get some relief from the injection he wonders when he can have another 1 I told him we need to give it about 3 months when he returns for his foot will reassess as his hip and consider injecting him. [email or web address] Not available 01/28/2023 11:18:08 03/08/2023 03/08/2023 Patient returns foot pain left. Pain for the most part resolved with better footwear anti-inflammator y medication and time. He tried the metatarsal pads with a seem to aggravate the rest the foot and now he has got better fitting shoes which seem to have helped. At any rate the neuroma like symptoms for the most part have resolved and I recommend loses leaving it alone. Secondary complaint is that of trochanteric pain he has got pain in the trochanters left and right. Part of that may be due to the fact he is walking abnormally has been almost 3 months he would like injections again this was done with 20 mg Kenalog 4 cc 1% lidocaine in the trochanteric bursa. He should continue with the [facility] for prescription drug management follow-up in a month discussed. [email or web address] Not available 03/08/2023 10:13:56 05/28/2023 05/28/2023 The patient has bilateral hip trochanteric bursitis recurrent in nature. He was doing very well until recently. Had to stop taking his anti-inflammator y medication due to peptic ulcer disease therefore her treatment options are somewhat limited. We can give him a month or 2 to see how he does and switch him to Celebrex possibly he states he has taken this before years ago he did not think that worked as well as his other anti-inflammator y medication but is willing to try it once his stomach calms down. I have advised him to talk to his primary doctor about this and if he feels better and his primary doctor agrees we could start a course of Celebrex. He will call us if necessary. He voiced understanding agrees above plan. Under sterile conditions I injected the patient's bilateral hip trochanteric bursa in the office with 4 cc of bupivacaine and 20 mg of Kenalog each. Patient tolerated procedure well. I will see him back as needed. We did discuss stretching in detail today I demonstrated for this for him in the office today he declined formal physical therapy. He states he has been through before and did not think it helped much. Not available 05/28/2023 10:58:21 08/23/2023 08/23/2023 the patient has bilateral hip trochanteric bursitis chronic in nature and recurrent in nature. We have talked multiple times about treatment options, cortisone and oral prednisone worked best for him. We will get him a prescription for the prednisone and today under sterile conditions I injected the patient's bilateral hip trochanteric bursa in the office with 4 cc 0.5% Marcaine and 20 mg of Kenalog. Patient tolerated the procedure well. I will see him back as needed we talked about the importance of stretching followed by icing. He states occasionally uses lidocaine patches on his hips I have advised him to try some ice after stretching as well. He voiced understanding and agrees above plan call for any further problems difficulties or questions. Not available 08/23/2023 09:31:45 Plan of Treatment Reminders Order Date Submit Date Provider Last Modified By Organization Details Last Modified Time Details Appointments None recorded. Lab None recorded. Referral None recorded. Procedures injection/a spiration joint/bursa (PROC) - in office procedure, administere d by provider 2022 023 [email or web address] In-Office Order, Internal Use Only DO Not Attach Compendium DO Not Attach Compendium, Do Not Delete/merge, [id number] 08:59:22 injection/a spiration joint/bursa (PROC) - in office procedure, administere d by provider 2022 023 [email or web address] In-Office Order, Internal Use Only DO Not Attach Compendium DO Not Attach Compendium, Do Not Delete/merge, [id number] 10:08:25 injection/a spiration joint/bursa (PROC) 2022 023 [email or web address] In-Office Order, Internal Use Only DO Not Attach Compendium DO Not Attach Compendium, Do Not Delete/merge, [id number] 10:28:26 injection/a spiration joint/bursa (PROC) - in office procedure, administere d by provider 2023 024 [email or web address] In-Office Order, Internal Use Only DO Not Attach Compendium DO Not Attach Compendium, Do Not Delete/merge, [id number] 09:18:27 Surgeries None recorded. Imaging XR, foot 2022 023 [email or web address] [facility] [place], [address], [place], [address], 3 11:20:19 XR, hip + pelvis, bilateral, 3 or 4 view 2022 023 [email or web address] [facility] [place], [address], [place], [address], 3 10:58:56 Medication Orders Kenalog 10 mg/mL suspension for injection 2022 023 [email or web address] [facility] #17050, [address] [facility], [place], [place], [id number], 3 09:04:30 ropivacaine (PF) 5 mg/mL (0.5 %) injection solution 2022 023 [email or web address] [facility], [address] [facility], [place], [place], [id number], 4 09:13:48 diclofenac sodium 75 mg tablet,aashish yed release 2022 023 [email or web address] [facility] #03092, [address] [facility], [place], [place], [id number], 4 09:10:58 Kenalog 10 mg/mL suspension for injection 2022 023 [email or web address] 158 [facility] #59880, [address], [place], [place], [id number], 3 10:14:16 ropivacaine (PF) 5 mg/mL (0.5 %) injection solution 2022 023 [email or web address] [facility] #20672, [address], [place], [place], [id number], 4 09:13:48 bupivacaine HCl 0.5 % (5 mg/mL) injection solution [address] [facility] #83206, [address] [facility] [address] [place] [address], [id number], 3 10:37:16 Kenalog 10 mg/mL suspension for injection 2022 023 [email or web address] [facility] #33829, [address] [place] [address], [id number], 3 10:37:16 Kenalog 10 mg/mL suspension for injection [email or web address] [place] [address] [facility] #77397, [address] [facility] [address] [place] [address], [id number], 4 11:26:36 Marcaine (PF) 0.5 % (5 mg/mL) injection solution [address] [facility] #61127, [address] [facility] [address] [place] [address], [id number], 4 11:26:36 prednisone 10 mg tablets in a dose pack [address] [facility] #42250, [address], [id number], 4 11:26:36 Patient TargetsNo targets recorded. Patient InstructionsNo instructions recorded. Reason for Referral None Reported. Results Created Date Observation Date Name Description Value Unit Range Abnormal Flag Note LastModifiedBy Organization Detail LastModifiedTime 01/29/20 23 XR, foot No observ ation record ed. [email or web address] [facility] [place] [address], [place], [address], 01/28/2023 11:16:51 05/28/20 23 XR, hip + pelvi s, bilat eral, 3 or 4 view No observ ation record ed. [email or web address] [facility] [place] [address] [facility] [address], [place], [address], 05/28/2023 10:58:54 Result Notes None recorded. Problems Name Problem SNOMED Code Status Onset Date Resolution Date Notes Provider Name and Address Organization Details Recorded Time Bilateral hip joint pain 1867882694208 9100 Active 2021 Not Available [facility] 3 23:58:14 Trochanter ic bursitis of left hip 7501957641468 03 Active 2021 Not Available [facility] 3 23:58:15 Trochanter ic bursitis of right hip 7302917621075 00 Active 2020 Not Available [facility] 3 23:58:15 Pain in left foot 5999139764543 07 Active 2022 Ita Lucero CNA null, [place] - [facility] 3 10:37:25 Metatarsal torsten of left foot 6019779079052 06 Active 2022 Sissy Reynolds null, [place] [facility] 3 11:09:23 Bilateral trochanter ic bursitis 6825218203995 9109 Active 2022 Sissy Reynolds null, [place] [facility] 3 10:07:08 Problem Notes None recorded. Procedures Surgical History Date Name Laterality Status Provider Name and Address Organization Details Recorded Time 03/08/20 23 Ortho - Cortisone Injection completed Dennis Parks MD [address], [place], [address], [facility] 03/08/2023 10:12:51 12/11/19 23 Ortho - Cortisone Injection completed Dennis Parks MD [address], [place], [address], [facility] 12/10/2022 10:54:47 09/11/19 23 Ortho - Cortisone Injection completed Dennis Parks MD [address], [place], [address], [place] [employer] 09/10/2022 13:26:31 total orchidectomy completed Not Available [facility] 08/12/2022 23:57:17 Hernia Repair completed Not Available [facility] 08/12/2022 23:57:17 radiofrequency rhizotomy of trigeminal nerve completed Ita Lucero CNA [facility] 08/23/2023 09:15:53 Imaging Results Imaging Date Name Status LastModified by Organiz ation Details LastModified Time 01/28/2023 XR, foot completed [email or web address] [facility] [place] [address], [place], [address], 01/28/2023 11:16:51 05/28/2023 XR, hip + pelvis, bilateral, 3 or 4 view completed [email or web address] [facility] [place] [address], [place], [address], 05/28/2023 10:58:54 Procedure Notes None recorded. Medical Equipment None Reported. Allergies No known drug allergies Medications Name Sig Start Date Stop Date Status Note LastModified by Organization Details LastModified Time celecoxib 200 mg capsule TAKE 1 CAPSULE BY MOUTH EVERY DAY 06/18 completed Not Available Not Available Not Available butorphanol 10 mg/mL nasal spray USE 1 SPRAY INTO ONE NOSTRIL EVERY 8 HOURS NEEDED FOR MODERATE TO SEVERE PAIN active Not Available Not Available No t Available Nicotrol NS 10 mg/mL nasal spray USE 1 SPRAY IN EACH NOSTRIL UP TO FIVE TIMES AN HOUR 08/22 completed Not Available Not Available Not Available prednisone 10 mg tablet TAKE 1 TABLET BY MOUTH THREE TIMES DAILY X3 DAYS, THEN 1 TABLET TWICE DAILY X2 DAYS, THEN 1 TABLET DAILY X1 DAY active Not Available Not Available No t Available BD Filter Needle 5-Mircon Nokor Point 18 gauge x 1 1/2 active Not Available Not Available Not Available dihydroergo tamine 0.5 mg/pump act. (4 mg/mL) nasal spray SPRAY 1 SPRAY IN EACH NOSTRIL DAILY. MAY REPEAT IN 2 HOURS NEEDED. MAX 4 SPRAYS A DAY AND 8 SPRAYS A WEEK 06/18 completed Not Available Not Available Not Available albuterol sulfate 2.5 mg/3 mL (0.083 %) solution for nebulizatio n USE 3 ML VIA NEBULIZER EVERY 4 HOURS NEEDED 08/22 completed Not Available Not Available Not Available azithromyci n 250 mg tablet 08/22 completed Not Available Not Available Not Available alprazolam 1 mg tablet TAKE 1 TABLET BY MOUTH EVERY NIGHT NEEDED FOR SLEEPLESS NESS active Not Available Not Available No t Available benzonatate 200 mg capsule active Not Available Not Available Not Available valacyclovi r 1 gram tablet 08/22 completed Not Available Not Available Not Available hydrocodone 5 mg-acetamin ophen 325 mg tablet TAKE 1 TO 2 TABLETS BY MOUTH EVERY 6 HOURS NEEDED FOR PAIN 08/22 completed Not Available Not Available Not Available meloxicam 15 mg tablet Take 1 tablet every day by oral route. active Not Available Not Available No t Available bupivacaine HCl 0.5 % (5 mg/mL) injection solution Take 40 mg by injection route. 2022 active Not Available Not Available Not Avai lable prednisone 20 mg tablet 06/18 completed Not Available Not Available Not Available verapamil ER (SR) 180 mg tablet,exte nded release TAKE 1 TABLET BY MOUTH EVERY MORNING AND EVERY EVENING WITH FOOD 08/22 completed Not Available Not Available Not Available sulfamethox azole 800 mg-trimetho prim 160 mg tablet TAKE 1 TABLET BY MOUTH TWICE DAILY FOR 10 DAYS 08/22 completed Not Available Not Available Not Available dihydroergo tamine 1 mg/mL injection solution INJECT 1ML EVERY 24 HOURS NEEDED active Not Available Not Available No t Available Nicotrol 10 mg inhalation cartridge 08/22 completed Not Available Not Available Not Available triamcinolo ne acetonide 0.1 % topical cream APPLY EXTERNALL Y TO THE AFFECTED AREA TWICE DAILY 04/10 completed Not Available Not Available Not Available butalbital- acetaminoph en-caffeine 50 mg-325 mg-40 mg tablet TAKE 1 TABLET BY MOUTH EVERY 6 HOURS NEEDED FOR MIGRAINE HEADACHE active Not Available Not Available No t Available ondansetron 8 mg disintegrat ing tablet DISSOLVE 1 TABLET ON THE TONGUE TWICE DAILY NEEDED active Not Available Not Available No t Available prednisone 10 mg tablets in a dose pack Take 1 tab by mouth, 3 times a day for 3 daysTake 1 tab by mouth 2 times a day for 2 daysTake 1 tab by mouth once a day for 1 day 2023 active Not Available Not Available Not Avai labjessika cyproheptad ine 4 mg tablet TAKE 4 TABLET BY MOUTH TWICE DAILY active Not Available Not Available No t Available ciclopirox 8 % topical solution APPLY TOPICALLY TO THE AFFECTED AREA EVERY NIGHT 06/18 completed Not Available Not Available Not Available oxycodone-a cetaminophe n 5 mg-325 mg tablet TAKE 1 TO 2 TABLETS BY MOUTH EVERY 6 HOURS NEEDED FOR PAIN 08/22 completed Not Available Not Available Not Available famotidine 20 mg tablet TAKE 1 TABLET BY MOUTH EVERY 12 HOURS 08/22 completed Not Available Not Available Not Available lidocaine HCl 4 % (40 mg/mL) mucosal solution USE MAX OF 6ML PER WEEK DIRECTED WITH ATOMIZER 08/22 completed Not Available Not Available Not Available dicyclomine 20 mg tablet TAKE 1 TABLET BY MOUTH EVERY 6 HOURS active Not Available Not Available No t Available Kenalog 10 mg/mL suspension for injection Take 40 mg by injection route. 2023 active [facility]: [phone] Not Available Not Available Not Available methylpredn isolone 8 mg tablet TAKE 1 TABLET BY MOUTH TWICE DAILY 08/22 completed Not Available Not Available Not Available lidocaine 5 % topical patch APPLY 1 PATCH TRANSDERM ALLY TO MOST PAINFUL AREA FOR UP TO 12 HOURS A DAY active Not Available Not Available No t Available docusate sodium 100 mg capsule TAKE 1 CAPSULE BY MOUTH EVERY 12 HOURS NEEDED FOR CONSTIPAT ION 08/22 completed Not Available Not Available Not Available BD Regular Bevel Bucklin 22 gauge x 1 1/2 active Not Available Not Available Not Available diclofenac sodium 75 mg tablet,aashish yed release TAKE 1 TABLET BY MOUTH TWICE DAILY 08/22 completed Not Available Not Available Not Available verapamil ER (SR) 240 mg tablet,exte nded release TAKE 1 TABLET BY MOUTH TWICE DAILY active Not Available Not Available No t Available hydrocortis one 2.5 % topical cream APPLY TOPICALLY TO THE AFFECTED AREA TWICE DAILY active Not Available Not Available No t Available montelukast 10 mg tablet TAKE 1 TABLET BY MOUTH DAILY active Not Available Not Available No t Available mupirocin 2 % topical ointment APPLY TOPICALLY TO THE AFFECTED AREA THREE TIMES DAILY FOR 10 DAYS 08/22 completed Not Available Not Available Not Available lorazepam 1 mg tablet TAKE 1 TABLET BY MOUTH TWICE DAILY NEEDED 06/18 completed Not Available Not Available Not Available epinephrine 0.3 mg/0.3 mL injection, auto-inject or ADMINISTE R 0.3 ML IN THE MUSCLE 1 TIME FOR UP TO 1 DOSE NEEDED FOR ANAPHYLAX IS. MAY REPEAT active Not Available Not Available No t Available methylpredn isolone 4 mg tablets in a dose pack FOLLOW PACKAGE DIRECTION S active Not Available Not Available No t Available albuterol sulfate HFA 90 mcg/actuati on aerosol inhaler INHALE 2 PUFFS INTO THE LUNGS EVERY 4 HOURS NEEDED FOR WHEEZING 08/22 completed Not Available Not Available Not Available BD Luer-Pascale Syringe 3 mL 18 x 1 1/2 INJECT DIRECTED WITH DHE active Not Available Not Available No t Available ondansetron 4 mg disintegrat ing tablet DISSOLVE 1 TABLET BY MOUTH EVERY 6 HOURS NEEDED FOR NAUSEA 08/22 completed Not Available Not Available Not Available fluticasone propionate 50 mcg/actuati on nasal spray,suspe nsion SHAKE LIQUID AND USE 2 SPRAYS IN EACH NOSTRIL DAILY active Not Available Not Available No t Available doxycycline hyclate 100 mg tablet TK 1 T PO D 04/10 completed Not Available Not Available Not Available verapamil ER 240 mg 24 hr capsule,ext ended release TAKE 1 CAPSULE BY MOUTH EVERY DAY. 08/22 completed Not Available Not Available Not Available enoxaparin 40 mg/0.4 mL subcutaneou s syringe 08/22 completed Not Available Not Available Not Available azithromyci n 500 mg tablet TAKE 1 TABLET BY MOUTH DAILY FOR 3 DAYS active Not Available Not Available No t Available rosuvastati n 5 mg tablet TAKE 1 TABLET BY MOUTH DAILY active Not Available Not Available No t Available bupropion HCl XL 150 mg 24 hr tablet, extended release TAKE 1 TABLET BY MOUTH DAILY active Not Available Not Available No t Available Marcaine (PF) 0.5 % (5 mg/mL) injection solution Take 40 mg by injection route. 2023 active Not Available Not Available Not Avai lable tadalafil 5 mg tablet TAKE 1 TABLET BY MOUTH NEEDED FOR ERECTILE DYSFUNCTI ON 06/18 completed Not Available Not Available Not Available Aleve 06/18 completed Not Available Not Available Not Available lidocaine (PF) 10 mg/mL (1 %) injection solution In office injection administe red by the provider 07/21 completed [facility]: [phone] Not Available Not Available Not Available lidocaine (PF) 5 mg/mL (0.5 %) injection solution In office injection administe red by the provider 06/18 completed Not Available Not Available Not Available desvenlafax ine succinate ER 50 mg tablet,exte nded release 24 hr TAKE 1 TABLET BY MOUTH DAILY active Not Available Not Available No t Available desvenlafax ine succinate ER 100 mg tablet,exte nded release 24 hr TAKE 1 TABLET BY MOUTH DAILY 06/18 completed Not Available Not Available Not Available GaviLyte-G 236 gram-22.74 gram-6.74 gram-5.86 gram oral solution 08/22 completed Not Available Not Available Not Available SmoothLax 17 gram oral powder packet MIX 17G IN LIQUID AND DRINK BY MOUTH EVERY MORNING NEEDED FOR CONSTIPAT ION 08/22 completed Not Available Not Available Not Available Thera-M 9 mg iron-400 mcg tablet TAKE 1 TABLET BY MOUTH EVERY MORNING 08/22 completed Not Available Not Available Not Available ropivacaine (PF) 5 mg/mL (0.5 %) injection solution Take 40 mg by injection route. 08/22 completed [facility] [phone] Not Available Not Available Not Available Eliquis 5 mg tablet TAKE 1 TABLET BY MOUTH TWICE DAILY 08/22 completed Not Available Not Available Not Available Virtussin AC 10 mg-100 mg/5 mL oral liquid TK 5-10 MILLILITE RS PO Q 6 HOURS PRN FOR COUGH 04/10 completed Not Available Not Available Not Available Nurtec ODT 75 mg disintegrat ing tablet DISSOLVE 1 TABLET ON THE TONGUE AT ONSET OF MIGRAINE. MAY REPEAT IN 24 HOURS NEEDED active Not Available Not Available No t Available ID NOW COVID-19 Test Kit [id number] active Not Available Not Available No t Available Trudhesa 0.725 mg/pump act. (4 mg/mL) nasal spray active Not Available Not Available Not Available Vitals Date Recorded Body height Body mass index (BMI) Body weight Provider Name and Address Organization Details Last Updated DateTime 12/10/2022 193.04 cm 25 kg/m2 27530.44 g Ita Lucero, [employer] [facility] [facility] 12/10/2022 08:58:10 Date Recorded Body height Body mass index (BMI) Body weight Provider Name and Address Organization Details Last Updated DateTime 01/28/2023 193.04 cm 25 kg/m2 31200.44 g Ita Lucero, [employer] [facility] [facility] 01/28/2023 10:37:02 Date Recorded Body height Body mass index (BMI) Body weight Provider Name and Address Organization Details Last Updated DateTime 03/08/2023 193.04 cm 24.3 kg/m2 15724.47 g Ita Orrs, [employer] [facility] [employer] 03/08/2023 09:54:27 Date Recorded Body height Body mass index (BMI) Body weight Provider Name and Address Organization Details Last Updated DateTime 05/28/2023 193.04 cm 25.6 kg/m2 66546.4 g Ita Nic, [employer] [facility] [facility] 05/28/2023 10:25:19 Date Recorded Body height Body mass index (BMI) Body weight Provider Name and Address Organization Details Last Updated DateTime 08/23/2023 193.04 cm 25.6 kg/m2 24526.4 g Ita Nic, [employer] [facility] [employer] 08/23/2023 09:09:28 Social History Question Answer Notes LastModified by Organizat ion Details LastModified Time Tobacco Smoking Status Current Every Day Smoker Not Available [facility] 08/12/2022 23:57:15 What Is Your Level Of Alcohol Consumption? None [id number] Information not available 08/12/2022 How Much Tobacco Do You Smoke? 1 PPD [id number] Information not available 08/12/2022 How Many Years Have You Smoked Tobacco? 38 [email or web address] Information not available 08/23/2023 Sex: Unknown Functional Status None recorded. Mental Status None recorded. Family History Relationship Description Onset Age of this Age Resolved Age Notes LastModified by Organization Details LastModified Time Father Family history of malignant neoplasm lung [id number] Not available 08/12/2022 23:57:20 Brother Family history of malignant neoplasm liver bile duct [id number] Not available 08/12/2022 23:57:20 Paternal Grandfather Family history of malignant neoplasm [email or web address] Not available 2023 09:15:09 Medical History Condition Response HEADACHES/MIGRAINES Y ANXIETY DISORDER Y USE OF BLOOD THINNERS Y BLOOD CLOTS Y USE OF NSAIDS Y GOUT Y HAVE YOU BEEN HOSPITALIZED OR SEEN IN [facility] IN THE PAST YEAR ? Y Past Encounters Encounter ID Performer Location Encounter Start Date Encounter Closed Date Diagnosis/Indication Diagnosis SNOMED-CT Code Diagnosis ICD10 Code Diagnosis Note [id number] [facility] [place] [address] [place], [place] [address] 04/10/2021 00:00:00 04/10/2021 12:10:48 [id number] [facility] [place] [address] [place] [address] 05/06/2021 00:00:00 05/06/2021 15:32:48 [id number] [facility] [place] [address] [place] [address] 07/21/2021 00:00:00 07/21/2021 09:58:01 [id number] [facility] [place] [address] [place] [address] 10/27/2021 00:00:00 10/27/2021 11:14:55 [id number] [facility] [place] [address] [place] [address] 12/01/2021 00:00:00 12/01/2021 11:00:29 [id number] [facility] [place] [address] [place] [address] 01/05/2022 00:00:00 01/05/2022 11:13:11 [id number] [facility] [place] [address] [place] [address] 06/18/2022 00:00:00 06/18/2022 13:45:49 [id number] Dennis Parks MD [facility] [place] [address] [place] [address] 09/10/2022 12:57:21 09/10/2022 14:28:35 Bilateral hip joint pain [id number] M25.551 M25.552 Trochanter ic bursitis of right hip [id number] 20842 M70.61 Trochanter ic bursitis of left hip 2625300335 88230 M70.62 [id number] Dennis Parks MD [facility] [place] [address] [place] [address] 12/10/2022 08:45:25 12/10/2022 11:30:57 Trochanteric bursitis of left hip [id number] 78136 M70.62 Bilateral hip joint pain [id number] [id number] M25.551 M25.552 Trochanter ic bursitis of right hip 6457367472 26388 M70.61 [id number] Dennis Parks MD [facility] [place] [address] [place] [address] 01/28/2023 10:30:34 01/28/2023 11:20:19 Pain in left foot [id number] 83603 M79.672 Metatarsal torsten of left foot 3023518421 33641 M77.42 [id number] Dennis Parks MD [facility] [place] [address] [place] [address] 03/08/2023 09:47:07 03/08/2023 10:14:38 Metatarsalgia of left foot [id number] 22084 M77.42 Pain in left foot 012390 1020 47401 M79.672 Bilateral trochanteric bursitis 5322564962 8621289 M70.61 M70.62 [id number] MANOLO Anderson [facility] [place] [address] [place] [address] 05/28/2023 10:17:57 05/28/2023 10:54:51 Bilateral trochanteric bursitis [id number] M70.61 M70.62 Bilateral hip joint pain 3334725050 [id number] M25.551 M25.264 [id number] MANOLO Anderson [facility] [place] [address] [facility] [address] [address] [place] [address] 08/23/2023 08:48:05 08/23/2023 11:28:31 Bilateral trochanteric bursitis [id number] 7216514 M70.61 M70.62 Bilateral hip joint pain 6711126396 6319715 M25.551 M25.552 Health Concerns Section Related Observation LastModified by Organization Detai ls LastModified Time None Recorded Concern Status LastModified by Organization Details LastModified Time None Recorded Advance Directives Directive None Recorded Payers Encounter Date Sequence Insurance Name Policy Number Policy Aguilar Covered Member ID Aguilar Member ID Guarantor Name 12/10/2022 1 [place] [id number] Kory Smith [id number] Kory Smith 01/28/2023 1 [place] [id number] Kory Smith [id number] Kory Smith 03/08/2023 1 [place] [id number] Kory Smith [id number] Kory Smith 05/28/2023 1 [place] [id number] Kory Smith [id number] Kory Smith 08/23/2023 1 [facility] (PPO) [id number] Kory Smith [id number] Kory Smith Notes Date Note Type Note Provider Name and Address Organization Details Recorded Time 12/10/2022 text/html Patient returns hip pain bilaterally. The pain is localized primarily over the trochanteric bursa. The last injections helped but the pain has returned and he remains symptomatic. Dennis Parks MD [address] [place] [address], [place], [address], [place] [facility] [employer] 12/10/2022 10:56:46 01/28/2023 text/html Patient returns a new complaint of foot pain left. He is tender over the ball of the foot. He he localizes 2nd 3rd toes although does not appear to have a neuroma. His hip pain is better although he still has pain with certain activities. He is wondering when he can get another injection. Dennis Parks MD [address], [place], [address], [facility] [employer] [facility] [employer] [facility] 01/28/2023 11:18:11 03/08/2023 text/html Patient returns a new complaint of foot pain left. He is tender over the ball of the foot. He he localizes 2nd 3rd toes although does not appear to have a neuroma. His hip pain is better although he still has pain with certain activities. He is wondering when he can get another injection. Dennis Parks MD [address], [place], [address], [facility] [employer] [facility] 03/08/2023 10:14:13 05/28/2023 text/html Patient returns with bilateral hip pain. Dr. Parks had seen him about 6 months ago he had cortisone injections both hips over the trochanteric bursa regions this gave him excellent relief he was also taking chronic prescription nonsteroidal anti-inflammatory medication however he started to develop burning nausea and vomiting due to extreme gastritis he was diagnosed with peptic ulcer disease and so he has had to stop taking his oral anti-inflammatorie s. This has led to increasingly worsening pain the bilateral hips recently. Denies any trauma or injury no new symptoms no groin or thigh pain he states that his aching pain and tenderness cannot sleep on either side. His x-rays look okay. He comes in today requesting repeat cortisone injections both hips. MANOLO Anderson [address], [facility] [address], [place], [address], [facility] [employer] [facility] 05/28/2023 10:59:14 08/23/2023 text/html patient returns complaining of bilateral hip pain over the lateral trochanteric regions. He has had chronic trochanteric bursitis he has had a few injections over the last few years. It has been 3 months since his last injections he cannot take anti-inflammatorie s due to gastritis type issues I did talk to him about switching to Celebrex he has taken this years before but because of recent stomach problems he has decided to stay where if not long-term. He has also been through a course of physical therapy which really did not do much for him he states he thought maybe this made it worse. He has aching pain with tenderness over the trochanteric regions bilaterally right worse than left cannot sleep on his side if he sits too long he gets stiff and tight and throbs and aches. He comes in today requesting repeat cortisone he states the pain is about a 4 on a scale of 1-10 today but other days it is much worse. Denies any new trauma or injury and only recently flared up over the last couple of weeks. Previous shot of cortisone and oral prednisone seemed to give him good relief.,A new past medical history sheet was reviewed and signed on the intake sheet of today's date drug allergies current medications family social history previous surgical history 10 point review of systems was reviewed and discussed in detail today with the patient. MANOLO Anderson [address] [facility], [facility] [address], [place], [address], [place] [facility] 08/23/2023 09:32:35
[2024-07-15 10:23] LABS: Basophils Absolute Auto 0.1 K/mm3 (0.0-0.1); Basophils Percent Auto 0.6 % (0.2-1.2); Eosinophils Absolute Auto 0.2 K/mm3 (0-0.3); Eosinophils Percent Auto 1.7 % (0-4.4); Hematocrit 45.1 % (42.0-52.0); Hemoglobin 14.3 g/dL (14.0-18.0); Immature Granulocyte Absolute 0.03 K/mm3 (0.00-0.031); Immature Granulocyte Percent A 0.3 % (0-0.5); Lymphocytes Absolute Auto 3.35 K/mm3 (0.9-3.2); Lymphocytes Percent Auto 30.5 % (18.3-44.2); Mean Corpuscular HGB Conc 31.7 g/dl (32-36); Mean Corpuscular Hemoglobin 28.3 pg (26-34); Mean Corpuscular Volume 89.3 fl (80-100); Mean Platelet Volume 9.1 fl (7.4-10.4); Monocytes Absolute Auto 0.8 K/mm3 (0.1-0.6); Monocytes Percent Auto 6.9 % (2.6-8.5); Neutrophils Absolute Auto 6.6 K/mm3 (1.3-6.7); Platelet Count Result 293 k/mm3 (150-375); Red Blood Count 5.05 M/mm3 (4.6-6.20); Red Cell Distribution Width 12.9 % (11.5-14.5)
== END 2024-07-15 09:50 | disposition home or self-care (01) ==
DX: D64.9 Anemia, unspecified (principal)
CPT/HCPCS: 36415; 85025

== ENCOUNTER 2025-03-03 08:28 | Outpatient (CLI) | payer OTHER, SELFPAY ==
--- OUTSIDE RECORDS SUMMARY | 2025-03-03 08:35 | XMS_ITS | Clinical Summary ---
Author Organization [facility] Address [address] [place] [address] Care Team Providers Care Surplus Property Disposal Agent Name Role Phone Sachin Alaniz DO Primary Care Provider [phone] Source Comments [facility],non-owned Affiliates and Associated Physician Practices is amultiple site organization consisting of ambulatory clinics and hospital sitesin [place]. This disclosure is being madepursuant to the Care Everywhere program and may not contain all information available regarding this patient. [facility] [employer] Allergies Active Allergy Reactions Criticality Noted Date Comments Cefaclor Diarrhea Medium 07/07/2008 Cefuroxime Diarrhea Medium 07/07/2008 Cephalexin Nausea and/or Vomiting 05/03/2019 Valproic Acid Itching,Swelling High 03/07/2019 Active Problems No known active problems Social History Tobacco Use Types Packs/Day Years Used Date Smoking Tobacco: Never Assessed Sex and Gender Information Value Date Recorded Sex Assigned at Male 03/21/2024 11:16 AM CDT Legal Sex Male 2:50 PM CDT Gender Identity Male 03/21/2024 11:16 AM CDT Sexual Orientation Straight 03/21/2024 11 :16 AM CDT Plan of Treatment Health Maintenance Due Date Last Done Comments COLOGUARD (AGES 45-75) - COL ON CA SCREENING 1970 CT COLONOGRAPHY - COLON CA SCREENING 1970 FIT - COLON CA SCREENING 1970 FLEX SIG - COLON CA SCREENING 1970 HIV SCREENING 1985 HEPATITIS C SCREENING 06/27/1988 DTAP/TDAP/TD VACCINES (1 - Tdap) 1989 HEPATITIS B VACCINE (1 of 3 - 19+ 3-dose series) 1989 PNEUMOCOCCAL VACCINE 50+ (1 of 1 - PCV) 2020 ZOSTER VACCINE (1 of 2) 2020 DEPRESSION SCREENING 06/14/2024 COVID-19 VACCINE (1 - 2023-2 5 season) 2025 INFLUENZA VACCINE (#1) 2025 04/25/2020 LIPID TESTING 01/21/2029 01/22/2024 COLON MONITORING 11/17/2032 11/17/2022 COLONOSCOPY - COLON CA SCREENING 11/17/2032 11/18/19 Colorectal Cancer Screening 11/17/2032 HIB VACCINE Aged Out No longer eligi ble based on patient's age to complete this topic HPV VACCINE Aged Out No longer eligi ble based on patient's age to complete this topic MENINGOCOCCAL (Group B) VACC INE SHARED DECISION-MAKING Aged Out No longer eligibl e based on patient's age to complete this topic MENINGOCOCCAL GROUPS A/C/Y/W VACCINE Aged Out No longer eligible b ased on patient's age to complete this topic Insurance [facility] Care Teams Surplus Property Disposal Agent Relationship Specialty Start Date End Date Sachin Alaniz DO [address] [place] [place] [id number] PCP - General Family Medicine 03/22/24
--- OUTSIDE RECORDS SUMMARY | 2025-03-03 08:35 | XMS_ITS | Clinical Summary ---
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 Gender Identity Male 08/28/2023 11:21 PM CDT Sexual Orientation Straight 08/28/2023 11 :21 PM CDT Obstetrics History Last Filed Vital Signs Vital Sign Reading Time Taken Comments Blood Pressure 121/70 08/29/2023 9:28 AM CDT Pulse 77 08/29/2023 9:28 AM CDT Temperature 37.2 C (98.9 F) 08/29/2023 9:28 AM CDT Respiratory Rate 18 08/29/2023 9:28 AM CDT Oxygen Saturation 96% 08/29/2023 9:28 AM CDT Inhaled Oxygen Concentration - - Weight 86.5 kg (190 lb 11.2 oz) 08/29/2023 9:28 AM CDT Height 193 cm (6' 4) 08/29/2023 9:28 AM CDT Body Mass Index 23.21 08/29/2023 9:28 AM CDT Plan of Treatment Health Maintenance Due Date Last Done Comments Depression Screening 1970 Hepatitis C Screening 1970 Prostate Cancer Screening-PSA 1970 Regular Well Visit/Exam 18-64 1988 Pneumococcal vaccine <65 (1 of 2 - PCV) 1989 Zoster Vaccine (1 of 2) 2020 Covid-19 Vaccine (5 - 2024-2 6 season) 2025 05/08/2022, 04/05/2021, 09/19/2020, Additional history exists Influenza Vaccine (#1) 2025 , 04/05/2021, 04/25/2020, Additional history exists DTaP/Tdap/Td Vaccine (3 - Td or Tdap) 09/11/2027 09/10/2017, 03/19/2007 Colon Cancer Screening-Colonoscopy 11/17/20322022 Hepatitis B Screening Completed 09/10/2017 , 09/10/2017, 08/27/2015, Additional history exists Procedures Procedure Name Priority Date/Time Associated Diagnosis [...] Male Attending MD: Padma Renee M.D. Room: [facility] ENDOSCOPY ROOM 4 Note Status: Finalized Procedure: [...] The scope was passed under direct vision.The [id number] endoscope was introduced through the anus [...] On: 11/17/2022 11:45 AM Recognized by the [place] Society for Gastrointestinal Endoscopy for promoting quality in endoscopy Padma Renee MD ENDOSCOPY PROCEDURES F inal Result from Last 3 Months or Most Recently Relevant to Health Maintenance Insurance [employer] [place] [facility] [employer] [place] Advance Directives For more information, please contact: [phone] * Full Code (Latest Code Status on File) Date Activated Date Inactivated Comments 11/17/2022 12:14 PM 11/17/2022 5:59 PM Care Teams Employee Development Specialist Relationship Specialty Start Date End Date Sachin Alaniz DO [address] [facility] [address] [place] [address] PCP - General Family Medicine 11/17/22
--- OUTSIDE RECORDS SUMMARY | 2025-03-03 08:35 | XMS_ITS | Clinical Summary ---
Author Organization [facility] Address [address] [place] [address] Phone Care Team Providers Care Customer Order Clerk Name Role Phone Sachin Alaniz DO Primary Care Provide r SandeeVy Marlene ISAIAH, SUPERVISOR [employer] Unavailable Allergies No known active allergies Medications [...] Active butorphanol (STADOL) 10 MG/ML Solution 1 [place] by Nasal route every 4 hours as needed. Active Desvenlafaxine Succinate 50 MG TABLET SR 24 HR Take by mouth. 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 Sexual Orientation Straight 05/03/2023 8: 43 AM LICENSED AIRCRAFT MAINTENANCE ENGINEER Last Filed Vital Signs Vital Sign Reading Time Taken Comments Blood Pressure 132/72 12/26/2024 8:00 AM CDT Pulse 67 12/26/2024 8:00 AM CDT Temperature 36.4 C (97.5 F) 12/26/2024 8:00 AM CDT Respiratory Rate 16 12/26/2024 8:00 AM CDT Oxygen Saturation 97% 12/26/2024 8:00 AM CDT Inhaled Oxygen Concentration - - Weight 84 kg (185 lb 1.6 oz) 12/26/2024 8:00 AM CDT Height 193 cm (6' 4) 12/26/2024 8:00 AM CDT Body Mass Index 22.53 12/26/2024 8:00 AM CDT Plan of Treatment Upcoming Encounters Date Type Department Care Team (Late st Contact Info) Description 07/03/2025 8:00 AM LICENSED AIRCRAFT MAINTENANCE ENGINEER Office Visit [facility] - Pulmonology & Sleep Medicine - [place] [address] [place] [address] Vy Ignacio, PASSENGER BOOKING CLERK, SUPERVISOR [employer]TING [address] [address] Health Maintenance Due Date Last Done Comments Hepatitis C Virus (HCV) Screening 1970 Pneumococcal Immunization (50+ years) (1 of 2 - PCV) 1989 Cologuard 2015 Immunochemical Fecal Occult Blood 2015 Hepatitis B Immunization (3 of 3 - 19+ 3-dose series) 11/05/2017 09/10/2017, 08/27/2015, 07/24/2015 Influenza Immunization (#1) 02/12/202504/14, 03/12/2023, 04/22/2022, Additional history exists Colonoscopy 11/17/2032 11/17/2022 Colorectal Cancer Screening 11/17/2032 Respiratory Syncytial Virus (RSV) Immunization (Adult) (1 - 1-dose 75+ series) 2045 TdaP Immunization Completed 03/19/2007 DTaP/Tdap/Td Immunization Discontinued 09/10/2017, 11/2006 Zoster Immunization Completed 06/26/2023, SARS-COV-2 Immunization Completed 04/28/20, 03/12/2023, 05/08/2022, Additional history exists Human Papillomavirus (HPV) Immunization Aged Out No longer eligible based on patient's age to complete this topic Meningococcal Immunization (ACWY) Aged Out No longer eligible based on patient's age to complete this topic Rotavirus Immunization Aged Out No lo nger eligible based on patient's age to complete this topic Insurance [facility] [place] [id number] Care Teams Customer Order Clerk Relationship Specialty Start Date End Date Sachin Alaniz DO [address] [facility] [address] [place] [address] PCP - General Family Medicine 04/19/23 Vy Ignacio APRN, SUPERVISOR [employer]ILTING [address] [facility] [address] [place] [address] Nurse Practitioner Advanced Practice Nurse 08/26/23
[2025-03-03 08:55] LABS: Hematocrit 44.8 % (42.0-52.0); Hemoglobin 14.4 g/dL (14.0-18.0); Immature Granulocyte Percent A 0.4 % (0-0.5); Lymphocytes Absolute Auto 2.64 K/mm3 (0.9-3.2); Mean Corpuscular HGB Conc 32.1 g/dl (32-36); Mean Corpuscular Hemoglobin 28.7 pg (26-34); Mean Corpuscular Volume 89.2 fl (80-100); Nucleated Red Blood Cells Absolute Auto 0.000 K/mm3 (0.0-0.012); Nucleated Red Blood Cells Perc 0.0 % (0.0-0.2); Platelet Count Result 326 k/mm3 (150-375); Red Blood Count 5.02 M/mm3 (4.6-6.20); White Blood Count 12.3 K/mm3 (4.5-10.0)
[2025-03-03 09:19] LABS: Alanine Aminotransferase 19 U/L (6-50); Albumin Level 4.4 g/dL (3.5-5.1); Alkaline Phosphatase 73 U/L (38-126); Anion Gap 6 mmol/L (4-12); Aspartate Amino Transferase 27 U/L (17-59); Bilirubin,Total 0.5 mg/dL (0.2-1.3); Blood Urea Nitrogen 14 mg/dL (9-20); Calcium 9.5 mg/dL (8.4-10.2); Carbon Dioxide 29 mmol/L (22-30); Chloride 102 mmol/L (98-107); Cholesterol 127 mg/dL (0-200); Estimated Glomerular Filt Rate > 60; Glucose 103 mg/dL (65-110); HDL Direct 38 mg/dL; Potassium 4.7 mmol/L (3.4-5.0); Sodium 137 mmol/L (137-145); Total Protein 7.3 g/dL (6.3-8.2); Triglycerides 68 mg/dL (<150)
[2025-03-03 09:43] LABS: Thyroid Stimulating Hormone Reflex 0.446 uIU/mL (0.465-4.68)
[2025-03-03 09:50] LABS: Prostate Specific Antigen 0.6 ng/mL (< OR = 4.0)
[2025-03-03 10:33] LABS: Free T4 Free Thyroxine Reflex 1.08 ng/dL (0.78-2.19)
[2025-03-03 11:59] LABS: Total Triiodothyronine (T3) 0.95 NG/ML (0.82-1.58)
[2025-03-13 00:07] LABS: Testosterone, Total, LC/MS 299 ng/dL (.)
== END 2025-03-03 08:29 | disposition home or self-care (01) ==
DX: Z00.00 Encounter for general adult medical examination without abnormal findings (principal); E55.9 Vitamin D deficiency, unspecified
CPT/HCPCS: 36415; 80053; 80061; 82306; 84153; 84403; 84439; 84443; 84480; 85025